=== PATIENT | female | born 1940 | race Caucasian/White ===

== ENCOUNTER 2017-03-10 15:33 | Inpatient (IN) ==
[2017-03-10] MEDS ORDERED: Ipratropium/Albuterol Neb 3 ML IH ONE ×2 (15:55→18:33)
--- NOTE | 2017-03-10 16:15 | Emergency Department Note ---
Disposition Clinical Impression: Congestive heart failure, Hypoxia, Dyspnea Disposition: Admitted As Inpatient Condition: Fair General Adult HPI - General Chief complaint: ED Shortness of Breath/Dyspnea Stated complaint: short of breathness Time Seen by Provider: 03/10/17 15:36 Source: patient, EMS Limitations: no limitations - History of Present Illness Pain Scale: 0 - Related Data Allergies Allergy/AdvReac Type Severity Reaction Status Date / Time Penicillins Allergy Anaphylaxis Verified 03/10/17 15:33 Past Medical History - Past Medical History Medical history: Reports: cancer, CHF, COPD, other Psychiatric history: Reports: no psych history - Social History Smoking Status: Former smoker Smokeless Tobacco Status: No Alcohol use: Reports: none Drug use: Reports: none Physical Exam - General Limitations: no limitations General appearance: alert, in no apparent distress Course - Reevaluation(s) Reevaluation #1: I saw the patient with the resident, Dr. Bennett. Patient presents with complaint of shortness of breath has been worsening since yesterday. She states she thinks it is water build up in her lungs. She just got out of [facility] yesterday for pneumonia. Apparently she was unable to find her CPAP machine because they just moved. She spent the night without her CPAP. Now she feels worse. On clinical exam there is coarse rhonchorous sounds in both lung wolfe. She has got edema to bilateral lower extremities. We will have to decide whether this is worsening pneumonia or if this is a newly developing congestive heart failure or some other issue. Lab workup and x-rays are pending. Disposition will be based on diagnostic results and reevaluation. Time: 16:14 Reevaluation #2: Patient's chest x-ray shows chronic changes with possibility of interstitial edema. Coupling this with orthopnea, dyspnea on exertion, and peripheral edema I suspect this really represents CHF. There is no obvious indication of pneumonia. Patient try to sit on the bedside move around and got much more short of breath. She definitely needs to be admitted to the hospital. Patient was given Lasix and another set of duo nebs. We will contact hospitalist for admission. Time: 18:36 Vital Signs Temperature 98.9 F 03/10/17 15:34 Pulse Rate 98 03/10/17 15:34 Respiratory Rate 22 03/10/17 15:34 Blood Pressure 148/57 03/10/17 15:34 O2 Sat by Pulse Oximetry 79 08/16/17 15:34 Temperature 98.0 F 03/10/17 20:44 Pulse Rate 76 03/10/17 20:44 Respiratory Rate 21 03/10/17 20:44 Blood Pressure 103/61 03/10/17 20:44 O2 Sat by Pulse Oximetry 95 03/10/17 20:44 Oxygen Delivery Oxygen Delivery Nasal Cannula Medical Decision Making - Lab Data Result diagrams: 03/10/17 16:39 03/10/17 16:39 Lab Results 03/10/17 03/10/17 03/10/17 Range/Units 16:28 16:39 16:39 WBC 9.8 (4.3-11.1) K/mcL RBC 3.97 (3.82-4.97) M/mcL Hgb 10.0 L (11.5-15.4) g/dL Hct 33.5 L (35.3-44.9) % MCV 84.4 (83.0-100.0) fL MCH 25.2 L (28.0-33.3) pg MCHC 29.9 L (31.6-35.5) g/dL RDW 17.4 H (11.5-14.5) % Plt Count 271 (140-400) K/mcL MPV 9.9 (9.4-12.4) fL Immature Gran % 0.9 (0-4) % Seg Neutrophils % 90.9 % Lymphocytes % 5.5 % Monocytes % 2.2 % Eosinophils % 0.3 % Basophils % 0.2 % Neutrophils # 8.9 (1.6-8.9) K/mcL Lymphocytes # 0.5 L (0.6-4.6) K/mcL Monocytes # 0.2 (0.0-1.3) K/mcL Eosinophils # 0.0 (0.0-0.6) K/mcL Basophils # 0.0 (0.0-0.2) K/mcL ABG pH 7.37 (7.32-7.45) pH Units ABG pCO2 59 H (35-45) mmHg ABG pO2 62 L (85-104) mmHg ABG HCO3 34.1 H (21-27) mEQ/L ABG Total CO2 35.9 H (20-26) mEq/L ABG O2 Saturation 91 L (95-98) % ABG Base Excess 7.6 H (-2.0 to 3.0) mEq/L Blood Gas Modality NC Inspired O2 28 % Sodium 138 (136-145) mEq/L Potassium 4.5 (3.5-4.5) mEq/L Chloride 98 (98-109) mEq/L Carbon Dioxide 31 H (19-29) mEq/L BUN 37 H (7-20) mg/dL Creatinine 1.15 H (0.57-1.11) mg/dL Est GFR ( Amer) 56 L (> 60) Est GFR (Non-Af Amer) 46 L (> 60) BUN/Creatinine Ratio 32 H (6-26) Glucose 263 H (70-99) mg/dL Calculated Osmolality 304 H (280-300) Calcium 9.3 (8.6-10.8) mg/dL Troponin I (0-0.03) ng/mL B-Natriuretic Peptide (0-100) pg/mL 03/10/17 03/10/17 Range/Units 16:39 16:39 WBC (4.3-11.1) K/mcL RBC (3.82-4.97) M/mcL Hgb (11.5-15.4) g/dL Hct (35.3-44.9) % MCV (83.0-100.0) fL MCH (28.0-33.3) pg MCHC (31.6-35.5) g/dL RDW (11.5-14.5) % Plt Count (140-400) K/mcL MPV (9.4-12.4) fL Immature Gran % (0-4) % Seg Neutrophils % % Lymphocytes % % Monocytes % % Eosinophils % % Basophils % % Neutrophils # (1.6-8.9) K/mcL Lymphocytes # (0.6-4.6) K/mcL Monocytes # (0.0-1.3) K/mcL Eosinophils # (0.0-0.6) K/mcL Basophils # (0.0-0.2) K/mcL ABG pH (7.32-7.45) pH Units ABG pCO2 (35-45) mmHg ABG pO2 (85-104) mmHg ABG HCO3 (21-27) mEQ/L ABG Total CO2 (20-26) mEq/L ABG O2 Saturation (95-98) % ABG Base Excess (-2.0 to 3.0) mEq/L Blood Gas Modality Inspired O2 % Sodium (136-145) mEq/L Potassium (3.5-4.5) mEq/L Chloride (98-109) mEq/L Carbon Dioxide (19-29) mEq/L BUN (7-20) mg/dL Creatinine (0.57-1.11) mg/dL Est GFR ( Amer) (> 60) Est GFR (Non-Af Amer) (> 60) BUN/Creatinine Ratio (6-26) Glucose (70-99) mg/dL Calculated Osmolality (280-300) Calcium (8.6-10.8) mg/dL Troponin I 0.02 (0-0.03) ng/mL B-Natriuretic Peptide 257 H (0-100) pg/mL Attestation Statement - Attestation Attestation: I, Dr. Sharma, examined this patient [id number] and my medical decision- making was reviewed with the Resident Physician, Dr. Bennett. I agree with the documented findings, disposition and treatment plan as described except to the extent set forth below. Please see my progress notes for details.
[2017-03-10 16:38] LABS: ABG Base Excess 7.6 mEq/L (-2.0 to 3.0); ABG HCO3 34.1 mEQ/L (21-27); ABG Oxygen Saturation 91 % (95-98); ABG PCO2 59 mmHg (35-45); ABG PH 7.37 pH Units (7.32-7.45); ABG PO2 62 mmHg (85-104); ABG TCO2 35.9 mEq/L (20-26)
[2017-03-10 16:40] LABS: Blood Gas FiO2 28 %
[2017-03-10 16:57] LABS: Basophils % 0.2 %; Eosinophils % 0.3 %; Hematocrit 33.5 % (35.3-44.9); Immature Granulocytes % 0.9 % (0-4); Lymphocytes # 0.5 K/mcL (0.6-4.6); Lymphocytes % 5.5 %; Mean Corpuscular HGB Conc 29.9 g/dL (31.6-35.5); Mean Corpuscular Hemoglobin 25.2 pg (28.0-33.3); Mean Corpuscular Volume 84.4 fL (83.0-100.0); Mean Platelet Volume 9.9 fL (9.4-12.4); Monocytes # 0.2 K/mcL (0.0-1.3); Monocytes % 2.2 %; Neutrophils # 8.9 K/mcL (1.6-8.9); Platelet Count 271 K/mcL (140-400); Red Blood Count 3.97 M/mcL (3.82-4.97); Red Cell Distribution Width 17.4 % (11.5-14.5); Segmented Neutrophils % 90.9 %
--- NOTE | 2017-03-10 16:59 | Emergency Department Note ---
Disposition Clinical Impression: Hypoxia Congestive heart failure Qualifiers: Congestive heart failure type: unspecified congestive heart failure type Congestive heart failure chronicity: unspecified congestive heart failure chronicity Qualified Code(s): I50.9 - Heart failure, unspecified Dyspnea Qualifiers: Dyspnea type: unspecified Qualified Code(s): R06.00 - Dyspnea, unspecified Disposition: Admitted As Inpatient Condition: Fair Time of Disposition: 19:59 SOB HPI - General Chief Complaint: ED Shortness of Breath/Dyspnea Stated Complaint: short of breathness Time Seen by Provider: 03/10/17 15:36 Source: patient, EMS Mode of arrival: EMS Limitations: no limitations Nursing Notes Reviewed: Yes Vital Signs Reviewed: Yes - History of Present Illness 76-year-old female history of COPD on 3 L home oxygen supplementation, congestive heart failure, [id number] diabetes mellitus presents with shortness of breath. Reports she was recently discharged from [facility] for pneumonia placed on Bactrim. She typically wears a CPAP at home but due to her recent move she was unable to find it and did not use it last night. She reports continued productive cough as well as difficulty breathing. She had to increase her oxygen to 4 L. Denies any fever, chest pain, nausea or vomiting or abdominal pain. She does have a known hernia, it is not causing her pain at this time. She comes for evaluation as she was instructed at discharged to come back if symptoms worsen. On initial presentation patient is hypoxic 79% on room air, and came up to 94% on 5L. She is afebrile and has some conversational dyspnea phrase at a time. Unsure of baseline. Will get a chest x-ray, basic labs EKG and a breathing treatment. Pt Subjective Complaint: shortness of breath - Related Data Allergies Allergy/AdvReac Type Severity Reaction Status Date / Time Penicillins Allergy Anaphylaxis Verified 03/10/17 15:33 All systems ED: reviewed and negative except as stated. Review of Systems: As Per HPI Constitutional: Denies: fever, chills Cardiovascular: Reports: dyspnea on exertion. Denies: chest pain Respiratory: Reports: cough, dyspnea Gastrointestinal: Denies: abdominal pain, nausea, vomiting Genitourinary: Denies: urgency, dysuria Musculoskeletal: Denies: back pain, neck pain Integumentary: Denies: rash, abrasion Neurological: Denies: headache Past Medical History - Past Medical History Attestation: Yes The following information was validated with the patient. Source: patient Medical history: Reports: cancer, CHF, COPD, other Psychiatric history: Reports: no psych history - Social History Smoking Status: Former smoker Smokeless Tobacco Status: No Alcohol use: Reports: none Drug use: Reports: none Physical Exam - General Limitations: no limitations General appearance: alert, in no apparent distress, obese - Head Head exam: atraumatic, normocephalic, normal inspection - Eye Eye exam: Present: normal appearance, PERRL, EOMI - ENT ENT exam: normal exam, normal oropharynx, mucous membranes moist - Neck Neck exam: Present: normal inspection, full ROM, trachea midline - Chest Chest inspection: Present: normal inspection, symmetric chest wall rise, other ( barrel chest) - Respiratory Respiratory exam: Present: other (coarse breath sounds bilaterally). Absent: respiratory distress - Expanded Respiratory Exam Location: rhonchi: Left - Cardiovascular Cardiovascular exam: Present: regular rate, normal rhythm, normal heart sounds - Abdominal Exam Abdominal exam: Present: soft, Non-Tender, normal bowel sounds, hernia. Absent : tenderness, distention, guarding, rebound, rigidity - Extremities Exam Extremities exam: Present: normal inspection, full ROM, normal capillary refill , pedal edema (pitting +2 symmetrical). Absent: tenderness, calf tenderness - Neurological Exam Neurological exam: Present: alert, oriented X3 - Skin Skin exam: Present: warm, dry, intact, normal color Course - Reevaluation(s) Reevaluation #1: On physical exam she has course breath sounds bilaterally. She appears to be fluid overloaded with pedal edema +2. After breathing treatment lungs continue to be course bilaterally. States she feels better however her pulse ox remains in the lower 90s. She is becoming very sleepy. And ABG was performed shows oxygen saturation 79 and elevated carbon dioxide level. Review of her chest x- ray does not show any consolidation but there is some interstitial edema to suggest congestive heart failure. BNP is elevated to 57. Troponin is negative. EKG does not show any acute ischemic changes. She has a mild elevation in her creatinine 1.15, no old labs to compare. She does not have a leukocytosis. Her labs or otherwise unremarkable. Due to her hypoxia in current mental state I believe she would benefit admission. At this time I think her symptoms are more due to congestive heart failure and not pneumonia. We attempted to stand are often walk however she was very weak and became very hypoxic. Patient will be admitted for further care management. She is in agreement with this plan. Impression is dyspnea and hypoxia, secondary to CHF. Chest X-Ray 03/10/17 15:43 IMPRESSION: 1. Reticular opacities throughout the lungs are favored to represent chronic lung changes superimposed on COPD; however, no prior studies are available to assess chronicity. Differential considerations include mild interstitial edema or atypical infection. 2. No focal consolidation or pleural effusion. D/ / 03/10/2017 16:24:01 Marcia Cole MD / audrey Interpreting Provider: Marcia Cole MD Time: 20:00 - Consultations Consultation #1: Spoke with on-call hospitalist glenny Hayes to admit for CHF and hypoxia. No further orders at this time Time: 19:59 Vital Signs Temperature 98.9 F 03/10/17 15:34 Pulse Rate 98 03/10/17 15:34 Respiratory Rate 22 03/10/17 15:34 Blood Pressure 148/57 03/10/17 15:34 O2 Sat by Pulse Oximetry 79 03/10/17 15:34 Temperature 98.9 F 03/10/17 15:34 Pulse Rate 88 03/10/17 18:30 Respiratory Rate 18 03/10/17 19:54 Blood Pressure 158/66 03/10/17 19:54 O2 Sat by Pulse Oximetry 91 03/10/17 18:49 Oxygen Delivery Oxygen Delivery Nasal Cannula Shortness of Breath/Dyspnea - Medical Records Medical records reviewed: Yes I reviewed the patient's medical records. - Lab Data Lab results reviewed: Yes I reviewed the patient's lab results. Result diagrams: 03/10/17 16:39 03/10/17 16:39 Lab Results 03/10/17 03/10/17 03/10/17 Range/Units 16:28 16:39 16:39 WBC 9.8 (4.3-11.1) K/mcL RBC 3.97 (3.82-4.97) M/mcL Hgb 10.0 L (11.5-15.4) g/dL Hct 33.5 L (35.3-44.9) % MCV 84.4 (83.0-100.0) fL MCH 25.2 L (28.0-33.3) pg MCHC 29.9 L (31.6-35.5) g/dL RDW 17.4 H (11.5-14.5) % Plt Count 271 (140-400) K/mcL MPV 9.9 (9.4-12.4) fL Immature Gran % 0.9 (0-4) % Seg Neutrophils % 90.9 % Lymphocytes % 5.5 % Monocytes % 2.2 % Eosinophils % 0.3 % Basophils % 0.2 % Neutrophils # 8.9 (1.6-8.9) K/mcL Lymphocytes # 0.5 L (0.6-4.6) K/mcL Monocytes # 0.2 (0.0-1.3) K/mcL Eosinophils # 0.0 (0.0-0.6) K/mcL Basophils # 0.0 (0.0-0.2) K/mcL ABG pH 7.37 (7.32-7.45) pH Units ABG pCO2 59 H (35-45) mmHg ABG pO2 62 L (85-104) mmHg ABG HCO3 34.1 H (21-27) mEQ/L ABG Total CO2 35.9 H (20-26) mEq/L ABG O2 Saturation 91 L (95-98) % ABG Base Excess 7.6 H (-2.0 to 3.0) mEq/L Blood Gas Modality NC Inspired O2 28 % Sodium 138 (136-145) mEq/L Potassium 4.5 (3.5-4.5) mEq/L Chloride 98 (98-109) mEq/L Carbon Dioxide 31 H (19-29) mEq/L BUN 37 H (7-20) mg/dL Creatinine 1.15 H (0.57-1.11) mg/dL Est GFR ( Amer) 56 L (> 60) Est GFR (Non-Af Amer) 46 L (> 60) BUN/Creatinine Ratio 32 H (6-26) Glucose 263 H (70-99) mg/dL Calculated Osmolality 304 H (280-300) Calcium 9.3 (8.6-10.8) mg/dL Troponin I (0-0.03) ng/mL B-Natriuretic Peptide (0-100) pg/mL 03/10/17 03/10/17 Range/Units 16:39 16:39 WBC (4.3-11.1) K/mcL RBC (3.82-4.97) M/mcL Hgb (11.5-15.4) g/dL Hct (35.3-44.9) % MCV (83.0-100.0) fL MCH (28.0-33.3) pg MCHC (31.6-35.5) g/dL RDW (11.5-14.5) % Plt Count (140-400) K/mcL MPV (9.4-12.4) fL Immature Gran % (0-4) % Seg Neutrophils % % Lymphocytes % % Monocytes % % Eosinophils % % Basophils % % Neutrophils # (1.6-8.9) K/mcL Lymphocytes # (0.6-4.6) K/mcL Monocytes # (0.0-1.3) K/mcL Eosinophils # (0.0-0.6) K/mcL Basophils # (0.0-0.2) K/mcL ABG pH (7.32-7.45) pH Units ABG pCO2 (35-45) mmHg ABG pO2 (85-104) mmHg ABG HCO3 (21-27) mEQ/L ABG Total CO2 (20-26) mEq/L ABG O2 Saturation (95-98) % ABG Base Excess (-2.0 to 3.0) mEq/L Blood Gas Modality Inspired O2 % Sodium (136-145) mEq/L Potassium (3.5-4.5) mEq/L Chloride (98-109) mEq/L Carbon Dioxide (19-29) mEq/L BUN (7-20) mg/dL Creatinine (0.57-1.11) mg/dL Est GFR ( Amer) (> 60) Est GFR (Non-Af Amer) (> 60) BUN/Creatinine Ratio (6-26) Glucose (70-99) mg/dL Calculated Osmolality (280-300) Calcium (8.6-10.8) mg/dL Troponin I 0.02 (0-0.03) ng/mL B-Natriuretic Peptide 257 H (0-100) pg/mL - Radiology Data Radiology results reviewed: Yes I reviewed the patient's radiology results. Chest X-Ray 03/10/17 15:43 IMPRESSION: 1. Reticular opacities throughout the lungs are favored to represent chronic lung changes superimposed on COPD; however, no prior studies are available to assess chronicity. Differential considerations include mild interstitial edema or atypical infection. 2. No focal consolidation or pleural effusion. D/ / 03/10/2017 16:24:01 Marcia Cole MD / audrey Interpreting Provider: Marcia Cole MD - EKG Data EKG attestation: Yes I reviewed and interpreted this EKG. EKG results narrative: EKG performed 1546 normal sinus rhythm 94 bpm, normal axis, no ST elevations or depression, intervals are within normal limits. No old EKG for comparison. No acute ischemic changes.
[2017-03-10 17:11] LABS: Calcium 9.3 mg/dL (8.6-10.8); Potassium 4.5 mEq/L (3.5-4.5)
[2017-03-10] MEDS ORDERED: Furosemide 40 MG/4 ML VIAL IVP ONE (18:34)
[2017-03-10] MEDS ORDERED: Naloxone 0.4 MG/ML INJ IVP PRN (21:12)
[2017-03-10] MEDS ORDERED: *HR* HYDROcodone/Acet 5/325 mg TABLET PO PRN (21:12)
[2017-03-10] MEDS ORDERED: Dextrose Gel 15 GM PO PRN ×2 (21:14)
[2017-03-10] MEDS ORDERED: D5% in Water 1,000 ML IVC PRN (21:14)
[2017-03-10] MEDS ORDERED: *HR* Dextrose 50 % in Water (Syg) 50 ML SYRINGE IVP PRN (21:14)
[2017-03-10] MEDS ORDERED: Insulin DETEMIR 100 UNIT/ML X5UNITS SQ SCH (21:45)
--- NOTE | 2017-03-10 22:02 | Internal Med History&Physical ---
<KoffiThong - Last Filed: 03/11/17 02:03> Date of Encounter: 03/10/17 Assessment and Plan (1) MOO on CPAP Current visit: Yes Status: Chronic pt has not had her CPAP and she feels that this is contributing to her current state, will get respiratory to place her on one at night, will also get oncology social work to weigh in regarding getting her set up at home Internal Medicine - H&P: HPI History of present illness: Ms. Guillen is a 76 year old female Internal Medicine - H&P: Meds Albuterol Sulfate [Albuterol Inhaler] 2 puff IH Q6H PRN 03/11/17 [History] Aspirin [Lo-Dose Aspirin EC] 81 mg PO DAILY 03/11/17 [History] Atorvastatin [Lipitor] 10 mg PO HS 03/11/17 [History] Esomeprazole Magnesium [Nexium] 40 mg PO DAILY 03/11/17 [History] FLUoxetine HCl [Fluoxetine HCl] 10 mg PO DAILY 03/11/17 [History] Furosemide [Lasix] 20 mg PO BID 03/11/17 [History] Lisinopril [Zestril] 5 mg PO DAILY 03/11/17 [History] Magnesium Oxide [Magnesium] 400 mg PO DAILY 03/11/17 [History] Oxybutynin [Ditropan] 5 mg PO DAILY 03/11/17 [History] Potassium Chloride [K-Tab ER] 10 meq PO DAILY 03/11/17 [History] metFORMIN [Glucophage] 850 mg PO BIDWM 03/11/17 [History] Penicillins Allergy (Verified 03/10/17 15:33) Anaphylaxis All Systems PM: A 10-system review of systems was performed and is negative for pertinent findings except as documented above in the HPI. - Constitutional Vitals: Temp Pulse Resp BP Pulse Ox 97.8 F 93 18 105/60 95 03/10/17 23:24 03/10/17 23:24 03/10/17 23:24 03/10/17 23:24 03/10/17 23:24 Limited exam Adult female, obese looking, face looks swollen, she is breathless, thick short neck that is difficult to visualize, lying in bed, Resp: diminished breath sounds, no crackles or wheeze heard, Extremities, bilateral reddened distal legs, with signs of grooving Internal Med - H&P Results - Labs CBC & Chem 7: 03/10/17 16:39 03/10/17 16:39 Labs: Urine 03/11/17 Range/Units 00:00 Urine Color Yellow (Yellow) Urine Clarity Clear (Clear) Urine pH 6.0 (5.0-8.0) pH Units Ur Specific Bronson 1.012 (1.010-1.025) Urine Protein Negative (Neg-Trace) mg/dL Urine Glucose (UA) Normal (Normal) mg/dL - Diagnostic Studies Chest x-ray Status: image reviewed by me - Attending Attestation I personally interviewed and examined this patient and my medical decision- making was reviewed with the Advanced Practice Nurse. I agree with the documented findings, disposition and treatment plan as described except as follows. Patient with a hx of MOO came in because she was acutely dyspneic, do not believe that she has CHF decompensation. She most likely has acute worsening of symptoms in the setting of her baseline COPD on top of recent pneumonia that is slowly resolving. Her inability to get/use her CPAP last night may have contributed to her current state. Thong Rain MD, MPH Hospitalist <Thomas Espinoza - Last Filed: 03/11/17 10:00> Date of Encounter: 03/11/17 Time of Encounter: 20:30 Assessment and Plan (1) Pneumonia Current visit: Yes Status: Acute Patient presents with pneumonia that she states was diagnosed at [facility] on 03/05-. She was instructed to return to the ED if she felt worse and she states that she experienced worsening SOB and weakness over the past 24 hours due to unresolved pneumonia. Patient was instructed to begin PO Bactrim post-discharge but did not start medication yet. Sputum, urine legionella and strep pneumoniae, and urine reflect and micro cultures ordered. Will begin IV ceftriaxone 2,000 mg daily and PO azithromycin 500 mg daily for infection coverage. DuoNebs Q4 ordered. Supplemental O2 with continuous SpO2 monitoring ordered. Patient does not currently meet SIRS criteria but will be monitored closely for signs of increasing infection and/or respiratory distress. Qualifiers: Pneumonia type: due to unspecified organism Laterality: bilateral Lung location: unspecified part of lung Qualified Code(s): J18.9 - Pneumonia, unspecified organism (2) Acute exacerbation of CHF (congestive heart failure) Current visit: Yes Status: Acute Patient presents with acute exacerbation of CHF versus unresolved pneumonia. Patient states that she takes PO lasix but is unsure of dosing at this time. Patient's medications to be confirmed with her home pharmacy in the a.m. Supplemental O2/SpO2 monitoring and CPAP HS. Will monitor I&O and daily weight. 1.5L daily fluid restriction. Qualifiers: Congestive heart failure type: unspecified congestive heart failure type Qualified Code(s): I50.9 - Heart failure, unspecified (3) Dyspnea Current visit: Yes Status: Acute Patient presents with acute shortness of breath/dyspnea on admission from hypoxia related to her reported unresolved pneumonia versus acute exacerbation of CHF. Patient reports using home O2 at 3L daily and CPAP at night, however she states she was unable to use CPAP last night due to it being misplaced. Supplemental O2 with SpO2 monitoring ordered during the day with CPAP ordered HS with respiratory to titrate. DuoNebs ordered Q4 scheduled. Repeat ABGs in the a.m. Will monitor patient and vital signs. Qualifiers: Dyspnea type: shortness of breath Qualified Code(s): R06.02 - Shortness of breath; R06.00 - Dyspnea, unspecified; R06.01 - Orthopnea (4) Weakness Current visit: Yes Status: Acute Patient presents with acute weakness which she states has worsened since being discharged from [facility] in 03/09. She attributes her weakness to her pneumonia being unresolved. Patient placed as falls precautions/up with assist/ bed rest with bathroom privileges with assist only. (5) Diabetes Current visit: Yes Status: Chronic Patient reports history of chronic diabetes with previous insulin but is unclear on current medications. She believes she takes metformin daily. Will verify with her pharmacy in the a.m. Blood glucose monitoring ordered ACHS. Basal dosing of 14 units SQ of Levemir ordered HS with low-dose correction insulin sliding scale and hypoglycemic protocol ordered. A1c ordered for a.m. labs. Qualifiers: Diabetes mellitus type: type 2 Diabetes mellitus complication status: with unspecified complications Diabetes mellitus emt intermediate insulin use: unspecified retirement insulin use status Qualified Code(s): E11.8 - Type 2 diabetes mellitus with unspecified complications (6) DVT prophylaxis Current visit: Yes Status: Acute Patient to be placed on DVT prophylaxis due to current admission protocol and bed rest status. Heparin 5,000 units SQ Q12 ordered. Internal Medicine - H&P: HPI Chief complaint: Shortness of breath/Dyspnea Admitted From: Emergency Dept Plans for Post Hospital Care: Home History of present illness: Mrs. Guillen is a 76 year old female presents from the ED with chief complaint of shortness of breath and dyspnea which has worsened over the past 24 hours. Patient states that she was recently hospitalized at [facility] for pneumonia from - and was sent home on PO Bactrim. Patient reports that she picked up her medication today but had not taken any when she began to feel worse and come to the ED. She states that she feels that her pneumonia is unresolved and that she is currently coughing up green sputum. She also states that she has CHF and uses CPAP at home but it was misplaced and she was unable to use it in last night. Mrs. Guillen reports that she uses home O2 at 3L normally. Upon admission to the ED, patient was hypoxic with SpO2 of 79% on room air which improved to 95 % once she was placed on 5L via nasal cannula. 1-View CXR today shows reticular opacities throughout the lungs that favor chronic lung changes superimposed on COPD. However, no previous studies are available to compare imaging to or assess chronicity. Differential considerations include mild interstitial edema or atypical infection. No focal consolidation or pleural effusion present. Patient's medical history includes lung cancer which she states is resolved, CHF , COPD, and diabetes which she previously took insulin for. She states she checks her blood glucose 3-4x daily. Patient is also a former smoker of 1-1.5 PPD, reporting she quit 4-5 months ago. Mrs. Guillen is at moderate risk for respiratory decline based on current symptoms and will be placed as observation status with orders for IV ceftriaxone 2,000 mg daily and PO azithromycin 500 mg daily for infection coverage. Patient was hypoxic on admission and will be placed on O2 via nasal cannula during the day and CPAP HS with respiratory to titrate. We will continue patient's home medications once they are confirmed with her pharmacy. Basal and low-dose correction insulin sliding scale, hypoglycemic protocol, and blood glucose monitoring ACHS ordered. Repeat ABGs in the a.m. Sputum, urine legionella and strep pneumoniae, and urine reflex with micro cultures ordered as well. Patient does not currently meet SIRS criteria but will be monitored closely for signs of increasing infection. Time spent with patient >40 minutes. Past Med Surg Social Fam HX - Past Medical History Source: patient Medical history: cancer (Lung - resolved), CHF, COPD, other Psychiatric history: no psych history - Past Surgical History Surgical History: hysterectomy - Social History Smoking Status: Former smoker Packs per day: 1-1.5 PPD - reports quitting 4-5 months ago Smokeless Tobacco Status: No Alcohol use: none Drug use: none Current living situation: Home, With Family Activity Level: Independent ambulation, Uses cane/walker Recent Out of Country Travel Within the Last 8 Weeks: No Exposure or Possible Exposure to Illness During Travel: No - Family History Mother Race: Family Member Ethnicity: Non- Living Status: Age at : 73 Cause of : Stroke Hx Family Cardiac Disorders: Yes (HTN) Hx Family Endocrine Disorder: Yes (DM) Father Race: Family Member Ethnicity: Non- Living Status: Age at : 73 Cause of : Cancer Hx Family Cancer: Yes (Unknown) Sister Race: Family Member Ethnicity: Non- Living Status: Age at : 60 Cause of : Lung cancer Hx Family Cancer: Yes (Lung) All Systems PM: A 10-system review of systems was performed and is negative for pertinent findings except as documented above in the HPI. - Constitutional Constitutional: as per HPI, weakness, no chills, no fever(s), no night sweats - EENT Eyes: no change in vision, no discharge, no pain, no photophobia Ears: no ear discharge, no ear pain, no tinnitus Nose, mouth and throat: no dysphagia, no nasal discharge, no neck pain, no sore throat - Breasts Breasts: as per HPI - Cardiovascular Cardiovascular ROS IM: as per HPI, dyspnea, dyspnea on exertion, edema (Mild pitting edema of bilateral LEs), no chest pain, no diaphoresis, no lightheadedness, no palpitations, no syncope - Respiratory Respiratory: as per HPI, cough, dyspnea, dyspnea on exertion, wheezing, change in phlegm color - Gastrointestinal Gastrointestinal: no abdominal pain, no diarrhea, no hematemesis, no hematochezia, no melena, no nausea, no vomiting - Genitourinary Genitourinary: no change in urinary stream, no dysuria, no flank pain, no hematuria Menstruation: as per HPI - Musculoskeletal Musculoskeletal ROS IM: no numbness, no tingling - Integumentary Integumentary IM: erythema (Mild erythema of LEs bilaterally), no rash, no unusual bruising - Neurological Neurological ROS: no confusion, no convulsions, no focal weakness, no numbness, no tingling, no tremor(s) - Psychiatric Psychiatric: as per HPI - Endocrine Endocrine IM: as per HPI - Hematologic/Lymphatic Hematologic/Lymphatic: no easy bruising - Allergic/Immunologic Allergic/Immunologic: as per HPI - Constitutional Vitals: Temp Pulse Resp BP Pulse Ox 98.0 F 76 21 103/61 95 03/10/17 20:44 03/10/17 20:44 03/10/17 20:44 03/10/17 20:44 03/10/17 20:44 General appearance: Present: cooperative, mild distress (Respiratory), A&O X 3, pleasant, obese, answers questions appropriately - Head Head exam: Present: atraumatic, normocephalic - Eye Eye exam: Present: PERRL, conjuntiva pink, sclera anicteric Pupils: Present: PERRL - ENT ENT exam: Present: normal exam, normal external ear exam - Neck Neck exam general surgery: Present: normal inspection, supple, trachea midline. Absent: lymphadenopathy - Respiratory Respiratory exam: Present: accessory muscle use, decreased breath sounds, wheezes - Cardiovascular Cardiovascular exam: Present: RRR, +S1, +S2. Absent: diastolic murmur, gallop, rubs, systolic murmur - GI/Abdominal GI/Abdominal exam: Present: normal bowel sounds, soft, no peritoneal signs. Absent: distended, tenderness - Rectal Rectal exam: Present: deferred - Additional comments: exam deferred. - Extremities Exam Extremities exam: Present: pedal edema, warm, radial pulses palpable and symmetrical - Back Exam Back exam: Present: normal inspection - Neurological Exam Neurological exam: Present: CN II-XII intact, oriented X3, no focal deficits. Absent: pronater drift, facial droop, speech deficit - Psychiatric Psychiatric exam: Present: normal affect, normal mood - Skin Skin exam: Present: dry, intact Internal Med - H&P Results - Labs CBC & Chem 7: 03/11/17 05:53 03/11/17 05:53 - Diagnostic Studies Chest x-ray Additional comments: Impressions Chest X-Ray 03/10/17 15:43 IMPRESSION: 1. Reticular opacities throughout the lungs are favored to represent chronic lung changes superimposed on COPD; however, no prior studies are available to assess chronicity. Differential considerations include mild interstitial edema or atypical infection. 2. No focal consolidation or pleural effusion. D/ / 03/10/2017 16:24:01 Marcia Cole MD / audrey Interpreting Provider: Marcia Cole MD
[2017-03-10] MEDS: Insulin LISPRO 300 UNITS/3 ML VIAL SQ SCH ×2 (22:23→22:37)
[2017-03-10] MEDS: Azithromycin 250 MG TABLET PO SCH (22:37)
[2017-03-10] MEDS: Ipratropium/Albuterol Neb 3 ML IH SCH (23:37)
[2017-03-11 00:15] LABS: Bilirubin,Urine Negative (Negative); Blood,Urine Negative (Negative); Clarity,Urine Clear (Clear); Color,Urine Yellow (Yellow); Glucose,Urine (UA) Normal (Normal); Ketones,Urine Negative (Negative); Leukocyte Esterase,Urine Negative (Negative); Nitrite,Urine Negative (Negative); Protein,Urine Negative (Neg-Trace); Specific Gravity,Urine 1.012 (1.010-1.025); Urobilinogen,Urine Normal (Normal)
[2017-03-11] MEDS: Ipratropium/Albuterol Neb 3 ML IH SCH ×6 (03:45→22:30)
[2017-03-11 03:52] LABS: ABG Base Excess 13.2 mEq/L (-2.0 to 3.0); ABG HCO3 39.2 mEQ/L (21-27); ABG Oxygen Saturation 94 % (95-98); ABG PCO2 59 mmHg (35-45); ABG PH 7.43 pH Units (7.32-7.45); ABG PO2 69 mmHg (85-104)
[2017-03-11 03:53] LABS: Blood Gas FiO2 40 %
[2017-03-11] MEDS: Acetaminophen 325 MG TABLET PO PRN (04:24)
[2017-03-11] MEDS: *HR* Heparin 5,000 UNIT/ML VIAL SQ SCH ×2 (05:26→16:22)
[2017-03-11 06:07] LABS: Basophils % 0.2 %; Eosinophils # 0.1 K/mcL (0.0-0.6); Eosinophils % 0.8 %; Immature Granulocytes % 0.8 % (0-4); Lymphocytes # 2.1 K/mcL (0.6-4.6); Lymphocytes % 22.4 %; Mean Corpuscular HGB Conc 30.4 g/dL (31.6-35.5); Mean Corpuscular Hemoglobin 25.4 pg (28.0-33.3); Mean Corpuscular Volume 83.6 fL (83.0-100.0); Mean Platelet Volume 10.5 fL (9.4-12.4); Monocytes # 0.8 K/mcL (0.0-1.3); Monocytes % 8.1 %; Neutrophils # 6.4 K/mcL (1.6-8.9); Platelet Count 237 K/mcL (140-400); Red Blood Count 3.23 M/mcL (3.82-4.97); Red Cell Distribution Width 17.4 % (11.5-14.5); Segmented Neutrophils % 67.7 %
[2017-03-11 06:08] LABS: Hemoglobin 8.2 g/dL (11.5-15.4)
[2017-03-11 06:13] LABS: INR 1.1; Prothrombin Time 11.8 Seconds (9.4-12.1)
[2017-03-11 06:16] LABS: Activated Partial Thrombo Time 25.4 Seconds (26.0-36.0)
[2017-03-11 06:17] LABS: Hemoglobin A1C 7.1 %
[2017-03-11 06:21] LABS: BUN/Creatinine Ratio 37 (6-26); Blood Urea Nitrogen 31 mg/dL (7-20); Calcium 8.7 mg/dL (8.6-10.8); Carbon Dioxide 35 mEq/L (19-29); Chloride 97 mEq/L (98-109); Chol/HDL Ratio 2.6 (0-4.9); Cholesterol 137 mg/dL (< 200); Glucose 109 mg/dL (70-99); HDL Cholesterol 53 mg/dL (40-59); LDL Cholesterol,Calculated 70 mg/dL (0-99); Magnesium 1.6 mg/dL (1.6-2.6); Osmolality,Calculated 295 (280-300); Potassium 3.5 mEq/L (3.5-4.5); Sodium 139 mEq/L (136-145); Triglycerides 69 mg/dL (< 150); eGFR For African Americans > 60 (> 60); eGFR For Non-African Americans > 60 (> 60)
[2017-03-11] MEDS: Insulin LISPRO 300 UNITS/3 ML VIAL SQ SCH ×4 (07:31→21:37)
[2017-03-11] MEDS: Azithromycin 250 MG TABLET PO SCH (07:50)
--- NOTE | 2017-03-11 10:25 | Internal Med Progress Note ---
<Norm San P - Last Filed: 03/11/17 18:12> Date of Encounter: 03/11/17 - Constitutional Vitals: Temp Pulse Resp BP Pulse Ox 98.1 F 80 20 127/68 92 03/11/17 15:40 03/11/17 15:40 03/11/17 15:40 03/11/17 15:40 03/11/17 15:40 Internal Medicine: Result - Labs CBC & Chem 7: 03/11/17 16:31 03/11/17 05:53 Labs: Short CBC 03/11/17 03/11/17 Range/Units 05:53 16:31 WBC 9.5 10.5 (4.3-11.1) K/mcL Hgb 8.2 L D 9.0 L (11.5-15.4) g/dL Hct 27.0 L 30.0 L (35.3-44.9) % Plt Count 237 279 (140-400) K/mcL Neutrophils # 6.4 7.0 (1.6-8.9) K/mcL BMP 03/11/17 05:53 Sodium 139 Potassium 3.5 D Chloride 97 L Carbon Dioxide 35 H BUN 31 H Creatinine 0.83 Glucose 109 H Calcium 8.7 Urine 03/11/17 Range/Units 00:00 Urine Color Yellow (Yellow) Urine Clarity Clear (Clear) Urine pH 6.0 (5.0-8.0) pH Units Ur Specific Aspen 1.012 (1.010-1.025) Urine Protein Negative (Neg-Trace) mg/dL Urine Glucose (UA) Normal (Normal) mg/dL - ABG Interpretation ABG results: ABG ABG pH 7.43 pH Units (7.32-7.45) 03/11/17 03:42 ABG pCO2 59 mmHg (35-45) H 03/11/17 03:42 ABG pO2 69 mmHg (85-104) L 03/11/17 03:42 ABG O2 Saturation 94 % (95-98) L 03/11/17 03:42 PT/INR, D-dimer PT 11.8 Seconds (9.4-12.1) 03/11/17 05:53 Consult Discharge Plan - Plan Referrals: [facility] [Outside] (web request sent on 03/11/17) - Attending Attestation I examined this patient and my medical decision-making was reviewed with the Resident Physician. I agree with the documented findings, disposition and treatment plan as described except to the extent set forth below. 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 CXR showed reticular opacities throughout the lungs, possible mild interstitial edema or atypical infection, no obvious focal consolidation. legionella, strep pneumo antigen negative Plan: azithromycin and ceftriaxone day 2 scheduled DuoNebs IV steroids continue CPAP continue home dose of lasix. (2) Anemia Current Visit: Yes Status: Acute Assessment and plan: note drop in Hg from admission from 10 to 8.2 Plan: stool guiac pending will repeat CBC this evening will get iron panel and ferritin in the morning. Qualifiers: Anemia type: unspecified type Qualified Code(s): D64.9 - Anemia, unspecified (3) Pneumonia Current Visit: Yes Status: Acute Assessment and plan: plan as above. Qualifiers: Pneumonia type: due to unspecified organism Laterality: bilateral Lung location: unspecified part of lung Qualified Code(s): J18.9 - Pneumonia, unspecified organism (4) Dyspnea Current Visit: Yes Status: Acute Assessment and plan: plan as #1 above. Qualifiers: Dyspnea type: shortness of breath Qualified Code(s): R06.02 - Shortness of breath; R06.00 - Dyspnea, unspecified; R06.01 - Orthopnea (5) Congestive heart failure Current Visit: Yes Status: Acute Assessment and plan: repeat echo showed LVEF 65%, mild concentric LVH, moderate LV diastolic dysfunction, normal RV size and fucntion, mildly dilated left atrium, mildly dilated right atrium, moderate mitral annular calcification, mild to moderate mitral stenosis, severe pulmonary HTN, RVSP 66. pulm HTN likely main contributing to her dyspnea. Qualifiers: Congestive heart failure type: diastolic Congestive heart failure chronicity: unspecified congestive heart failure chronicity Qualified Code(s) : I50.30 - Unspecified diastolic (congestive) heart failure (6) Weakness Current Visit: Yes Status: Acute Assessment and plan: consult to PT/OT (7) Diabetes Current Visit: Yes Status: Chronic Assessment and plan: hold metformin. low dose SSI with ACHS accuchecks. Qualifiers: Diabetes mellitus type: type 2 Diabetes mellitus complication status: with unspecified complications Diabetes mellitus group home insulin use: unspecified superintendent terminal insulin use status Qualified Code(s): E11.8 - Type 2 diabetes mellitus with unspecified complications (8) DVT prophylaxis Current Visit: Yes Status: Acute Assessment and plan: Heparin SQ - Subjective Interval history: 76 year old female evaluated at bedside. patient denies nauesa, vomiting, diarrhea, fever, chills, chest pain. she admits to some shortness of beath. she states she wears CPAP at home, but lost it during a move. - Constitutional Vitals: Temp Pulse Resp BP Pulse Ox 97.8 F 77 16 127/65 90 03/11/17 07:24 03/11/17 07:24 03/11/17 07:38 03/11/17 07:24 03/11/17 07:53 General appearance: Present: cooperative, mild distress (Respiratory), A&O X 3, pleasant, obese, answers questions appropriately - Head Head exam: Present: atraumatic, normocephalic - Neck Neck exam general surgery: Present: supple, trachea midline - Respiratory Additional comments: diffuse wheezing, rales - Cardiovascular Cardiovascular exam: Present: RRR, +S1, +S2 - GI/Abdominal Additional comments: [id number] hernia present to the right of the umbillicus. - Extremities Exam Extremities exam: Absent: cyanotic, pedal edema Additional comments: bilateral lower extremity redness and warmth. - Neurological Exam Neurological exam: Present: alert, oriented X3, no focal deficits - Psychiatric Psychiatric exam: Present: normal affect, normal mood - Skin Skin exam: Present: intact Internal Medicine: Result - Labs CBC & Chem 7: 03/12/17 05:19 03/12/17 05:19 Labs: Short CBC 03/11/17 Range/Units 05:53 WBC 9.5 (4.3-11.1) K/mcL Hgb 8.2 L D (11.5-15.4) g/dL Hct 27.0 L (35.3-44.9) % Plt Count 237 (140-400) K/mcL Neutrophils # 6.4 (1.6-8.9) K/mcL BMP 03/11/17 05:53 Sodium 139 Potassium 3.5 D Chloride 97 L Carbon Dioxide 35 H BUN 31 H Creatinine 0.83 Glucose 109 H Calcium 8.7 Urine 03/11/17 Range/Units 00:00 Urine Color Yellow (Yellow) Urine Clarity Clear (Clear) Urine pH 6.0 (5.0-8.0) pH Units Ur Specific Aspen 1.012 (1.010-1.025) Urine Protein Negative (Neg-Trace) mg/dL Urine Glucose (UA) Normal (Normal) mg/dL - ABG Interpretation ABG results: ABG ABG pH 7.43 pH Units (7.32-7.45) 03/11/17 03:42 ABG pCO2 59 mmHg (35-45) H 03/11/17 03:42 ABG pO2 69 mmHg (85-104) L 03/11/17 03:42 ABG O2 Saturation 94 % (95-98) L 03/11/17 03:42 PT/INR, D-dimer PT 11.8 Seconds (9.4-12.1) 03/11/17 05:53
--- NOTE | 2017-03-11 15:22 | Electrocardiograph Report ---
[place] [id number] Test Date: 2017-03-10 Pat Name: Rachel Guillen Department: 104 Room: 2A23 Gender: F Piecer Up: KIMBERLEY : 1940 Requested By: Allen Bennett Order Number: [id number] Reading MD: Morales Milton MD Measurements Intervals [place] Rate: 94 P: 25 IN: 139 QRS: 13 QRSD: 76 T: 46 QT: 363 QTc: 415 Interpretive Statements SINUS RHYTHM Electronically Signed On 03-11-2017 15:20:40 EDT by Morales Milton MD
[2017-03-11] MEDS: Furosemide 20 MG TABLET PO SCH (16:21)
[2017-03-11] MEDS: MethylPREDNISolone 40 MG/ML VIAL IVP SCH (16:23)
[2017-03-11 16:45] LABS: Basophils % 0.2 %; Eosinophils # 0.3 K/mcL (0.0-0.6); Eosinophils % 2.7 %; Immature Granulocytes % 1.1 % (0-4); Lymphocytes # 2.3 K/mcL (0.6-4.6); Mean Corpuscular Hemoglobin 25.2 pg (28.0-33.3); Mean Platelet Volume 9.9 fL (9.4-12.4); Monocytes # 0.8 K/mcL (0.0-1.3); Monocytes % 7.6 %; Platelet Count 279 K/mcL (140-400); Red Blood Count 3.57 M/mcL (3.82-4.97); Red Cell Distribution Width 17.3 % (11.5-14.5); Segmented Neutrophils % 66.4 %
[2017-03-11] MEDS: *HR* Morphine 2 MG/ML SYRINGE IVP PRN (21:40)
[2017-03-11] MEDS ORDERED: Ipratropium/Albuterol Neb 3 ML IH PRN (22:13)
[2017-03-11] MEDS ORDERED: Furosemide 20 MG/2 ML VIAL IVP ONE (22:20)
[2017-03-11 22:35] LABS: Eosinophils % 0.3 %; Hematocrit 29.9 % (35.3-44.9); Hemoglobin 8.9 g/dL (11.5-15.4); Immature Granulocytes % 1.5 % (0-4); Lymphocytes # 0.6 K/mcL (0.6-4.6); Lymphocytes % 7.3 %; Mean Corpuscular HGB Conc 29.8 g/dL (31.6-35.5); Mean Corpuscular Hemoglobin 24.6 pg (28.0-33.3); Mean Corpuscular Volume 82.6 fL (83.0-100.0); Mean Platelet Volume 10.2 fL (9.4-12.4); Monocytes # 0.1 K/mcL (0.0-1.3); Monocytes % 1.4 %; Neutrophils # 7.1 K/mcL (1.6-8.9); Platelet Count 260 K/mcL (140-400); Red Blood Count 3.62 M/mcL (3.82-4.97); Red Cell Distribution Width 17.2 % (11.5-14.5); Segmented Neutrophils % 89.5 %
[2017-03-12] MEDS: Ipratropium/Albuterol Neb 3 ML IH SCH ×6 (03:45→23:02)
[2017-03-12] MEDS: *HR* Morphine 2 MG/ML SYRINGE IVP PRN (04:01)
[2017-03-12] MEDS: *HR* Heparin 5,000 UNIT/ML VIAL SQ SCH ×2 (06:13→16:57)
[2017-03-12] MEDS: MethylPREDNISolone 40 MG/ML VIAL IVP SCH (06:13)
[2017-03-12 06:16] LABS: Basophils % 0.1 %; Eosinophils % 0.4 %; Hematocrit 29.2 % (35.3-44.9); Hemoglobin 8.6 g/dL (11.5-15.4); Immature Granulocytes % 2.2 % (0-4); Immature Platelets 3.3 % (1.1-6.1); Lymphocytes # 1.4 K/mcL (0.6-4.6); Lymphocytes % 18.1 %; Mean Corpuscular HGB Conc 29.5 g/dL (31.6-35.5); Mean Corpuscular Hemoglobin 24.6 pg (28.0-33.3); Mean Corpuscular Volume 83.7 fL (83.0-100.0); Mean Platelet Volume 10.1 fL (9.4-12.4); Monocytes # 0.6 K/mcL (0.0-1.3); Monocytes % 7.7 %; Neutrophils # 5.6 K/mcL (1.6-8.9); Platelet Count 257 K/mcL (140-400); Red Blood Count 3.49 M/mcL (3.82-4.97); Red Cell Distribution Width 17.2 % (11.5-14.5); Segmented Neutrophils % 71.5 %
[2017-03-12 06:34] LABS: BUN/Creatinine Ratio 32 (6-26); Blood Urea Nitrogen 25 mg/dL (7-20); Calcium 8.9 mg/dL (8.6-10.8); Carbon Dioxide 35 mEq/L (19-29); Chloride 95 mEq/L (98-109); Glucose 286 mg/dL (70-99); Osmolality,Calculated 303 (280-300); Sodium 139 mEq/L (136-145); eGFR For African Americans > 60 (> 60); eGFR For Non-African Americans > 60 (> 60)
[2017-03-12] MEDS: Furosemide 20 MG TABLET PO SCH ×2 (08:17→16:56)
[2017-03-12] MEDS: Azithromycin 250 MG TABLET PO SCH (08:17)
[2017-03-12] MEDS: Insulin LISPRO 300 UNITS/3 ML VIAL SQ SCH ×4 (08:18→20:20)
[2017-03-12 09:00] LABS: % Iron Saturation 8 % (15-50); Iron 27 mcg/dL (50-170); Transferrin 256 mg/dL (180-382)
[2017-03-12 09:23] LABS: Ferritin 54 ng/ml (5-204)
--- NOTE | 2017-03-12 11:25 | Internal Med Progress Note ---
<Jordan Esquivel - Last Filed: 03/12/17 11:23> Date of Encounter: 03/12/17 Time of Encounter: 11:23 - Assessment and plan (1) COPD exacerbation Current Visit: Yes Status: Acute Assessment and plan: likely multifactorial in setting of unresolved prior pneumonia, severe pulmonary HTN (type 3 secondary to COPD), non compliance with CPAP at home secondary to social issues, non compliance with antiboitic use after last hospital discharge. CXR showed reticular opacities throughout the lungs, possible mild interstitial edema or atypical infection, no obvious focal consolidation. legionella, strep pneumo antigen negative Plan: azithromycin and ceftriaxone day 3 scheduled DuoNebs steroids continue CPAP continue home dose of lasix. (2) Anemia Current Visit: Yes Status: Acute Assessment and plan: note drop in Hg from admission from 10 to 8.2 low iron, ferritin normal. Plan: stool guiac pending will repeat CBC this evening appreciate GI recs likely scope on Wednesday Qualifiers: Anemia type: unspecified type Qualified Code(s): D64.9 - Anemia, unspecified (3) Pneumonia Current Visit: Yes Status: Acute Assessment and plan: plan as above. Qualifiers: Pneumonia type: due to unspecified organism Laterality: bilateral Lung location: unspecified part of lung Qualified Code(s): J18.9 - Pneumonia, unspecified organism (4) Dyspnea Current Visit: Yes Status: Acute Assessment and plan: plan as #1 above. Qualifiers: Dyspnea type: shortness of breath Qualified Code(s): R06.02 - Shortness of breath; R06.00 - Dyspnea, unspecified; R06.01 - Orthopnea (5) Congestive heart failure Current Visit: Yes Status: Acute Assessment and plan: repeat echo showed LVEF 65%, mild concentric LVH, moderate LV diastolic dysfunction, normal RV size and fucntion, mildly dilated left atrium, mildly dilated right atrium, moderate mitral annular calcification, mild to moderate mitral stenosis, severe pulmonary HTN, RVSP 66. pulm HTN likely main contributing to her dyspnea. Qualifiers: Congestive heart failure type: diastolic Congestive heart failure chronicity: unspecified congestive heart failure chronicity Qualified Code(s) : I50.30 - Unspecified diastolic (congestive) heart failure (6) Weakness Current Visit: Yes Status: Acute Assessment and plan: consult to PT/OT (7) Diabetes Current Visit: Yes Status: Chronic Assessment and plan: hold metformin. low dose SSI with ACHS accuchecks. Qualifiers: Diabetes mellitus type: type 2 Diabetes mellitus complication status: with unspecified complications Diabetes mellitus fdc insulin use: unspecified predatory animal exterminator insulin use status Qualified Code(s): E11.8 - Type 2 diabetes mellitus with unspecified complications (8) DVT prophylaxis Current Visit: Yes Status: Acute Assessment and plan: Heparin SQ - Subjective Interval history: 76 year old female evaluated at bedside. patient denies nauesa, vomiting, diarrhea, fever, chills, chest pain. she admits to some shortness of beath. she denies any further problems today. - Constitutional Vitals: Temp Pulse Resp BP Pulse Ox 98.3 F 75 16 153/68 93 03/12/17 07:43 03/12/17 07:43 03/12/17 11:17 03/12/17 07:43 03/12/17 11:17 General appearance: Present: cooperative, mild distress (Respiratory), A&O X 3, pleasant, obese, answers questions appropriately - Head Head exam: Present: atraumatic, normocephalic - Neck Neck exam general surgery: Present: supple, trachea midline - Respiratory Respiratory exam: Present: decreased breath sounds Additional comments: decreased breath sounds noted. throughout. - Cardiovascular Cardiovascular exam: Present: RRR, +S1, +S2 - GI/Abdominal GI/Abdominal exam: Present: normal bowel sounds, soft. Absent: distended, tenderness Additional comments: abdominal hernia present. - Extremities Exam Extremities exam: Absent: cyanotic, pedal edema - Neurological Exam Neurological exam: Present: alert, oriented X3, no focal deficits - Psychiatric Psychiatric exam: Present: normal affect, normal mood - Skin Skin exam: Present: intact Internal Medicine: Result - Labs CBC & Chem 7: 03/12/17 05:19 03/12/17 05:19 Labs: Short CBC 03/11/17 03/12/17 Range/Units 22:27 05:19 WBC 7.9 7.8 (4.3-11.1) K/mcL Hgb 8.9 L 8.6 L (11.5-15.4) g/dL Hct 29.9 L 29.2 L (35.3-44.9) % Plt Count 260 257 (140-400) K/mcL Neutrophils # 7.1 5.6 (1.6-8.9) K/mcL BMP 03/12/17 05:19 Sodium 139 Potassium 4.0 Chloride 95 L Carbon Dioxide 35 H BUN 25 H Creatinine 0.78 Glucose 286 H Calcium 8.9 - ABG Interpretation ABG results: ABG ABG pH 7.43 pH Units (7.32-7.45) 03/11/17 03:42 ABG pCO2 59 mmHg (35-45) H 03/11/17 03:42 ABG pO2 69 mmHg (85-104) L 03/11/17 03:42 ABG O2 Saturation 94 % (95-98) L 03/11/17 03:42 PT/INR, D-dimer PT 11.8 Seconds (9.4-12.1) 03/11/17 05:53 Consult Discharge Plan - Plan Referrals: [facility] [Outside] (web request sent on 03/11/17) <Norm San P - Last Filed: 03/12/17 20:15> Date of Encounter: 03/12/17 - Constitutional Vitals: Temp Pulse Resp BP Pulse Ox 98 F 105 18 153/58 95 03/12/17 18:58 03/12/17 18:58 03/12/17 19:45 03/12/17 18:58 03/12/17 19:45 Internal Medicine: Result - Labs CBC & Chem 7: 03/12/17 18:51 03/12/17 05:19 Labs: Short CBC 03/11/17 03/12/17 03/12/17 Range/Units 22:27 05:19 18:51 WBC 7.9 7.8 10.6 (4.3-11.1) K/mcL Hgb 8.9 L 8.6 L 9.0 L (11.5-15.4) g/dL Hct 29.9 L 29.2 L 30.3 L (35.3-44.9) % Plt Count 260 257 294 (140-400) K/mcL Neutrophils # 7.1 5.6 8.0 (1.6-8.9) K/mcL BMP 03/12/17 05:19 Sodium 139 Potassium 4.0 Chloride 95 L Carbon Dioxide 35 H BUN 25 H Creatinine 0.78 Glucose 286 H Calcium 8.9 - ABG Interpretation ABG results: ABG ABG pH 7.43 pH Units (7.32-7.45) 03/11/17 03:42 ABG pCO2 59 mmHg (35-45) H 03/11/17 03:42 ABG pO2 69 mmHg (85-104) L 03/11/17 03:42 ABG O2 Saturation 94 % (95-98) L 03/11/17 03:42 PT/INR, D-dimer PT 11.8 Seconds (9.4-12.1) 03/11/17 05:53 - Attending Attestation I examined this patient and my medical decision-making was reviewed with the Resident Physician. I agree with the documented findings, disposition and treatment plan as described except to the extent set forth below.
[2017-03-12] MEDS ORDERED: Albuterol 2.5 MG/3 ML NEBULIZER IH PRN (11:37)
--- NOTE | 2017-03-12 11:38 | Gastroenterology Consult Note ---
<Connor Chiang - Last Filed: 03/12/17 11:35> Date of Encounter: 03/12/17 Time of Encounter: 09:50 - Assessment and plan (1) Anemia Current Visit: Yes Status: Acute Assessment and plan: Hgb 10 and decreased to 8.2 on 03/11. Today, Hgb 8.6. Fecal occult blood test positive on 03/11. Continue to monitor CBC and transfuse PRBC as needed. Plan for EGD and colonoscopy on Wednesday. Clear liquid diet Wednesday, no red or purple. NPO at midnight Wednesday night. If unable tolerate NuLytely please use MiraLAX prep. If not clear by 6 AM Wednesday, give 2 tap water enemas. Qualifiers: Anemia type: unspecified type Qualified Code(s): D64.9 - Anemia, unspecified (2) Congestive heart failure Current Visit: Yes Status: Acute Assessment and plan: Management per primary team. Qualifiers: Congestive heart failure type: diastolic Congestive heart failure chronicity: unspecified congestive heart failure chronicity Qualified Code(s) : I50.30 - Unspecified diastolic (congestive) heart failure (3) Dyspnea Current Visit: Yes Status: Acute Assessment and plan: Management per primary team. Qualifiers: Dyspnea type: shortness of breath Qualified Code(s): R06.02 - Shortness of breath; R06.00 - Dyspnea, unspecified; R06.01 - Orthopnea - Time Spent With Patient Total time spent is greater than 50% in coordination of care (as documented) at patient's floor/unit and/or counseling patient: GI History of Present Illness - Data of Consult Patient: new to practice Consult date: 03/12/17 Requesting Physician: Norm San MD - Consult Narrative Reason for consult: anemia History of present illness: Ms. Guillen is a 76 year old female with PMHx of lung cancer, CHF, COPD who presented to the ED with c/o SOB and dyspnea. She was recently hospitalized at [place] for pneumonia from 03/05-. She denies fever, chills, chest pain, abdominal pain, nausea, vomiting, diarrhea, constipation, melena, or hematochezia. We were consulted to evaluate her anemia. On admission, Hgb 10 and decreased to 8.2 on 03/11. Today, Hgb 8.6. Fecal occult blood test positive on 03/11. Procedures: EGD 2010 [facility], per pt report. NSAIDs: ASA Anticoagulation: None Past Med Surg Social Fam HX - Past Medical History Medical history: cancer (Lung - resolved), CHF, COPD, other Psychiatric history: no psych history - Past Surgical History Surgical History: hysterectomy - Social History Smoking Status: Former smoker Packs per day: 1-1.5 PPD - reports quitting 4-5 months ago Smokeless Tobacco Status: No Alcohol use: none Drug use: none - Family History Mother Race: Family Member Ethnicity: Non- Living Status: Age at : 73 Cause of : Stroke Hx Family Cardiac Disorders: Yes (HTN) Hx Family Respiratory Disorders: No Hx Family Cancer: No Hx Family GI Disorders: No Hx Family Genitourinary Disorders: No Hx Family Endocrine Disorder: Yes (DM) Hx Family Musculoskeletal Disorders: No Hx Family Neuromuscular Disorders: No Hx Family Neurologic Disorders: No Hx Family HEENT Disorders: No Hx Family Autoimmune Disorders: No Hx Family Reproductive Disorders: No Hx Family Psychosocial Disorders: No Hx Family Medical Disorders: No Father Race: Family Member Ethnicity: Non- Living Status: Age at : 73 Cause of : Cancer Hx Family Cancer: Yes (Unknown) Sister Race: Family Member Ethnicity: Non- Living Status: Age at : 60 Cause of : Lung cancer Hx Family Cancer: Yes (Lung) - Gastrointestinal Gastrointestinal: Present: as per HPI - Constitutional Constitutional: as per HPI - EENT Eyes: as per HPI Ears: Present: as per HPI Nose, mouth and throat: Present: as per HPI - Cardiovascular Cardiovascular ROS: Present: as per HPI - Respiratory Respiratory IM: Present: as per HPI - Genitourinary Genitourinary: Absent: change in color, Urinary frequency - Neurological ROS Neurological GI: Present: as per HPI - Hematologic/Lymphatic Hematologic/Lymphatic pediatric: Present: as per HPI - Musculoskeletal Musculoskeletal ROS GI: Present: as per HPI - Integumentary Integumentary GI: Present: as per HPI - Psychiatric ROS Psychiatric GI: Present: as per HPI - Endocrine Endocrine IM: Present: as per HPI - Constitutional Vitals: Temp Pulse Resp BP Pulse Ox 98.5 F 79 22 136/61 99 03/12/17 11:29 03/12/17 11:29 03/12/17 11:29 03/12/17 11:29 03/12/17 11:29 General appearance: Present: cooperative, mild distress (SOB), A&O X 3, answers questions appropriately - Head Head exam: Present: atraumatic, normocephalic - Eye Eye exam: Present: normal appearance, sclera anicteric - ENT ENT exam: Present: mucous membranes dry - Neck Neck exam general surgery: Present: normal inspection, trachea midline - Respiratory Respiratory exam: Present: decreased breath sounds, wheezes - Cardiovascular Cardiovascular exam: Present: RRR, +S1, +S2 - GI/Abdominal GI/Abdominal exam: Present: soft, no peritoneal signs. Absent: distended, firm , guarding, tenderness Additional comments: abdominal hernia - Rectal Rectal exam: Present: deferred - Extremities Exam Extremities exam: Present: warm - Neurological Exam Neurological exam: Present: no focal deficits - Psychiatric Psychiatric exam: Present: normal affect, normal mood - Skin Skin exam: Present: dry, intact, normal color, warm Results - Labs CBC & Chem 7: 03/12/17 05:19 03/12/17 05:19 Labs: Last Result Calcium 8.9 mg/dL (8.6-10.8) 03/12/17 05:19 Iron 27 mcg/dL (50-170) L 03/12/17 05:19 % Saturation 8 % (15-50) L 03/12/17 05:19 Transferrin 256 mg/dL (180-382) 03/12/17 05:19 Ferritin 54 ng/ml (5-204) 03/12/17 05:19 Troponin I 0.02 ng/mL (0-0.03) 03/10/17 16:39 Triglycerides 69 mg/dL (< 150) 03/11/17 05:53 Stool Occult Blood Positive (Negative) A 03/11/17 17:49 Entire Visit Hgb 8.6 g/dL (11.5-15.4) L 03/12/17 05:19 Hct 29.2 % (35.3-44.9) L 03/12/17 05:19 PT 11.8 Seconds (9.4-12.1) 03/11/17 05:53 Ferritin 54 ng/ml (5-204) 03/12/17 05:19 - ABG ABG results: ABG ABG pH 7.43 pH Units (7.32-7.45) 03/11/17 03:42 ABG pCO2 59 mmHg (35-45) H 03/11/17 03:42 ABG pO2 69 mmHg (85-104) L 03/11/17 03:42 ABG O2 Saturation 94 % (95-98) L 03/11/17 03:42 PT/INR, D-dimer PT 11.8 Seconds (9.4-12.1) 03/11/17 05:53 Consult Discharge Plan - Plan Referrals: [facility] [Outside] (web request sent on 03/11/17) <Dori Mensah - Last Filed: 03/12/17 12:22> Date of Encounter: 03/12/17 Time of Encounter: 10:00 - Time Spent With Patient Total time spent is greater than 50% in coordination of care (as documented) at patient's floor/unit and/or counseling patient: GI History of Present Illness - Data of Consult Requesting Physician: Norm San MD - Consult Narrative History of present illness: Ms. Guillen is a 76 year old female - Constitutional Vitals: Temp Pulse Resp BP Pulse Ox 98.5 F 79 22 136/61 99 03/12/17 11:29 03/12/17 11:29 03/12/17 11:29 03/12/17 11:29 03/12/17 11:29 Results - Labs CBC & Chem 7: 03/12/17 05:19 03/12/17 05:19 Labs: Last Result Calcium 8.9 mg/dL (8.6-10.8) 03/12/17 05:19 Iron 27 mcg/dL (50-170) L 03/12/17 05:19 % Saturation 8 % (15-50) L 03/12/17 05:19 Transferrin 256 mg/dL (180-382) 03/12/17 05:19 Ferritin 54 ng/ml (5-204) 03/12/17 05:19 Troponin I 0.02 ng/mL (0-0.03) 03/10/17 16:39 Triglycerides 69 mg/dL (< 150) 03/11/17 05:53 Stool Occult Blood Positive (Negative) A 03/11/17 17:49 Entire Visit Hgb 8.6 g/dL (11.5-15.4) L 03/12/17 05:19 Hct 29.2 % (35.3-44.9) L 03/12/17 05:19 PT 11.8 Seconds (9.4-12.1) 03/11/17 05:53 Ferritin 54 ng/ml (5-204) 03/12/17 05:19 - ABG ABG results: ABG ABG pH 7.43 pH Units (7.32-7.45) 03/11/17 03:42 ABG pCO2 59 mmHg (35-45) H 03/11/17 03:42 ABG pO2 69 mmHg (85-104) L 03/11/17 03:42 ABG O2 Saturation 94 % (95-98) L 03/11/17 03:42 PT/INR, D-dimer PT 11.8 Seconds (9.4-12.1) 03/11/17 05:53 - Attending Attestation I examined this patient and my medical decision-making was reviewed with the Resident Physician. I agree with the documented findings, disposition and treatment plan as described except to the extent set forth below.
[2017-03-12 19:04] LABS: Basophils % 0.1 %; Eosinophils # 0.1 K/mcL (0.0-0.6); Eosinophils % 0.5 %; Hematocrit 30.3 % (35.3-44.9); Immature Granulocytes % 1.4 % (0-4); Lymphocytes # 1.7 K/mcL (0.6-4.6); Lymphocytes % 15.7 %; Mean Corpuscular HGB Conc 29.7 g/dL (31.6-35.5); Mean Corpuscular Hemoglobin 24.6 pg (28.0-33.3); Mean Corpuscular Volume 82.8 fL (83.0-100.0); Mean Platelet Volume 9.9 fL (9.4-12.4); Monocytes # 0.7 K/mcL (0.0-1.3); Monocytes % 6.7 %; Nucleated Red Blood Cells 0.2 /100 WBC (0); Platelet Count 294 K/mcL (140-400); Red Blood Count 3.66 M/mcL (3.82-4.97); Segmented Neutrophils % 75.6 %
[2017-03-13] MEDS: Ipratropium/Albuterol Neb 3 ML IH SCH ×6 (03:45→23:40)
[2017-03-13 04:10] LABS: Basophils % 0.1 %; Eosinophils # 0.3 K/mcL (0.0-0.6); Eosinophils % 2.8 %; Hematocrit 27.5 % (35.3-44.9); Hemoglobin 8.3 g/dL (11.5-15.4); Lymphocytes # 2.6 K/mcL (0.6-4.6); Mean Corpuscular HGB Conc 30.2 g/dL (31.6-35.5); Mean Corpuscular Hemoglobin 25.3 pg (28.0-33.3); Mean Corpuscular Volume 83.8 fL (83.0-100.0); Mean Platelet Volume 10.3 fL (9.4-12.4); Monocytes # 0.7 K/mcL (0.0-1.3); Monocytes % 7.5 %; Neutrophils # 6.2 K/mcL (1.6-8.9); Platelet Count 262 K/mcL (140-400); Red Blood Count 3.28 M/mcL (3.82-4.97); Red Cell Distribution Width 17.2 % (11.5-14.5); Segmented Neutrophils % 62.6 %
[2017-03-13 04:27] LABS: BUN/Creatinine Ratio 32 (6-26); Blood Urea Nitrogen 25 mg/dL (7-20); Calcium 8.6 mg/dL (8.6-10.8); Carbon Dioxide 34 mEq/L (19-29); Chloride 97 mEq/L (98-109); Glucose 234 mg/dL (70-99); Osmolality,Calculated 302 (280-300); Potassium 3.6 mEq/L (3.5-4.5); Sodium 140 mEq/L (136-145); eGFR For African Americans > 60 (> 60); eGFR For Non-African Americans > 60 (> 60)
[2017-03-13] MEDS: *HR* Heparin 5,000 UNIT/ML VIAL SQ SCH (05:00)
[2017-03-13] MEDS: Insulin LISPRO 300 UNITS/3 ML VIAL SQ SCH ×4 (08:17→21:13)
[2017-03-13] MEDS: Furosemide 20 MG TABLET PO SCH ×2 (08:18→16:55)
[2017-03-13] MEDS: Azithromycin 250 MG TABLET PO SCH (08:18)
[2017-03-13] MEDS: predniSONE 20 MG TABLET PO SCH (08:18)
[2017-03-13 10:26] LABS: Hemoglobin 9.4 g/dL (11.5-15.4)
--- NOTE | 2017-03-13 11:12 | Internal Med Progress Note ---
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 please see social work note. she refuses sleep study as well. CXR showed reticular opacities throughout the lungs, possible mild interstitial edema or atypical infection, no obvious focal consolidation. legionella, strep pneumo antigen negative Plan: azithromycin and ceftriaxone scheduled DuoNebs steroids continue CPAP continue home dose of lasix. (2) Anemia Current Visit: Yes Status: Acute Assessment and plan: note drop in Hg from admission from 10 to 8.2 low iron, ferritin normal. stool guiac positive- consult to GI Plan: EGD/colonoscopy Thursday 03/15 Clear liquid diet starting tonight. no red or purple dyes NPO after midnight tomorrow. use Nu-Lytely prep. if unable to tolate, use miralax prep. if not clear by 6am use 2 water tap enemas. Qualifiers: Anemia type: unspecified type Qualified Code(s): D64.9 - Anemia, unspecified (3) Pneumonia Current Visit: Yes Status: Acute Assessment and plan: plan as above. Qualifiers: Pneumonia type: due to unspecified organism Laterality: bilateral Lung location: unspecified part of lung Qualified Code(s): J18.9 - Pneumonia, unspecified organism (4) Dyspnea Current Visit: Yes Status: Acute Assessment and plan: plan as #1 above. Qualifiers: Dyspnea type: shortness of breath Qualified Code(s): R06.02 - Shortness of breath; R06.00 - Dyspnea, unspecified; R06.01 - Orthopnea (5) Congestive heart failure Current Visit: Yes Status: Acute Assessment and plan: repeat echo showed LVEF 65%, mild concentric LVH, moderate LV diastolic dysfunction, normal RV size and fucntion, mildly dilated left atrium, mildly dilated right atrium, moderate mitral annular calcification, mild to moderate mitral stenosis, severe pulmonary HTN, RVSP 66. pulm HTN and non compliance with CPAP likely mainly contributing to her dyspnea. Qualifiers: Congestive heart failure type: diastolic Congestive heart failure chronicity: unspecified congestive heart failure chronicity Qualified Code(s) : I50.30 - Unspecified diastolic (congestive) heart failure (6) Weakness Current Visit: Yes Status: Acute Assessment and plan: consult to PT/OT they recommended home health at discharge. (7) Diabetes Current Visit: Yes Status: Chronic Assessment and plan: hold metformin. low dose SSI with ACHS accuchecks. Qualifiers: Diabetes mellitus type: type 2 Diabetes mellitus complication status: with unspecified complications Diabetes mellitus terminal block assembler insulin use: unspecified terminal block assembler insulin use status Qualified Code(s): E11.8 - Type 2 diabetes mellitus with unspecified complications (8) DVT prophylaxis Current Visit: Yes Status: Acute Assessment and plan: EPCDs - Subjective Interval history: 76 year old female evaluated at bedside. patient denies nauesa, vomiting, diarrhea, fever, chills, chest pain. she admits to some shortness of breath. she denies any further problems today. - Constitutional Vitals: Temp Pulse Resp BP Pulse Ox 97.7 F 86 18 128/72 90 03/13/17 10:55 03/13/17 10:55 03/13/17 10:55 03/13/17 10:55 03/13/17 10:55 General appearance: Present: cooperative, A&O X 3, pleasant, obese, answers questions appropriately - Head Head exam: Present: atraumatic, normocephalic - Neck Neck exam general surgery: Present: supple, trachea midline - Respiratory Additional comments: mild bilateral upper lobe rales. no wheezing heard today - Cardiovascular Cardiovascular exam: Present: RRR, +S1, +S2 - GI/Abdominal GI/Abdominal exam: Present: normal bowel sounds, soft. Absent: distended, tenderness Additional comments: abdominal hernia present. - Extremities Exam Additional comments: no cyanosis, edema, or clubbing. bilateral lower extremities are red. - Neurological Exam Neurological exam: Present: alert, oriented X3, no focal deficits Internal Medicine: Result - Labs CBC & Chem 7: 03/13/17 10:06 03/13/17 03:13 Labs: Short CBC 03/12/17 03/13/17 03/13/17 Range/Units 18:51 03:13 10:06 WBC 10.6 9.9 (4.3-11.1) K/mcL Hgb 9.0 L 8.3 L 9.4 L (11.5-15.4) g/dL Hct 30.3 L 27.5 L 32.0 L (35.3-44.9) % Plt Count 294 262 (140-400) K/mcL Neutrophils # 8.0 6.2 (1.6-8.9) K/mcL BMP 03/13/17 03:13 Sodium 140 Potassium 3.6 Chloride 97 L Carbon Dioxide 34 H BUN 25 H Creatinine 0.78 Glucose 234 H Calcium 8.6 - ABG Interpretation ABG results: ABG ABG pH 7.43 pH Units (7.32-7.45) 03/11/17 03:42 ABG pCO2 59 mmHg (35-45) H 03/11/17 03:42 ABG pO2 69 mmHg (85-104) L 03/11/17 03:42 ABG O2 Saturation 94 % (95-98) L 03/11/17 03:42 PT/INR, D-dimer PT 11.8 Seconds (9.4-12.1) 03/11/17 05:53 - VTE Documentation of Mechanical Device: Intermittent pneumatic compression device Consult Discharge Plan - Plan Referrals: [facility] [Outside] (web request sent on 03/11/17) <Norm San P - Last Filed: 03/13/17 15:32> Date of Encounter: 03/13/17 - Constitutional Vitals: Temp Pulse Resp BP Pulse Ox 97.7 F 86 20 128/72 92 03/13/17 10:55 03/13/17 10:55 03/13/17 11:08 03/13/17 10:55 03/13/17 11:08 Internal Medicine: Result - Labs CBC & Chem 7: 03/13/17 10:06 03/13/17 03:13 Labs: Short CBC 03/12/17 03/13/17 03/13/17 Range/Units 18:51 03:13 10:06 WBC 10.6 9.9 (4.3-11.1) K/mcL Hgb 9.0 L 8.3 L 9.4 L (11.5-15.4) g/dL Hct 30.3 L 27.5 L 32.0 L (35.3-44.9) % Plt Count 294 262 (140-400) K/mcL Neutrophils # 8.0 6.2 (1.6-8.9) K/mcL BMP 03/13/17 03:13 Sodium 140 Potassium 3.6 Chloride 97 L Carbon Dioxide 34 H BUN 25 H Creatinine 0.78 Glucose 234 H Calcium 8.6 - ABG Interpretation ABG results: ABG ABG pH 7.43 pH Units (7.32-7.45) 03/11/17 03:42 ABG pCO2 59 mmHg (35-45) H 03/11/17 03:42 ABG pO2 69 mmHg (85-104) L 03/11/17 03:42 ABG O2 Saturation 94 % (95-98) L 03/11/17 03:42 PT/INR, D-dimer PT 11.8 Seconds (9.4-12.1) 03/11/17 05:53 - Attending Attestation I examined this patient and my medical decision-making was reviewed with the Resident Physician. I agree with the documented findings, disposition and treatment plan as described except to the extent set forth below. Regarding anemia: Patient does not have significant drop of hemoglobin. Definitely hemoglobin is not less than 8. Plan: Patient does not need transfusion at this point.
[2017-03-14] MEDS: Ipratropium/Albuterol Neb 3 ML IH SCH ×6 (03:45→23:11)
[2017-03-14 05:03] LABS: Basophils % 0.2 %; Eosinophils # 0.3 K/mcL (0.0-0.6); Eosinophils % 2.7 %; Hematocrit 30.7 % (35.3-44.9); Immature Granulocytes % 1.1 % (0-4); Lymphocytes % 23.9 %; Mean Corpuscular HGB Conc 29.3 g/dL (31.6-35.5); Mean Corpuscular Hemoglobin 24.7 pg (28.0-33.3); Mean Corpuscular Volume 84.1 fL (83.0-100.0); Mean Platelet Volume 10.1 fL (9.4-12.4); Monocytes # 0.6 K/mcL (0.0-1.3); Monocytes % 6.1 %; Neutrophils # 6.2 K/mcL (1.6-8.9); Platelet Count 316 K/mcL (140-400); Red Blood Count 3.65 M/mcL (3.82-4.97)
[2017-03-14 05:05] LABS: Lymphocytes # 2.3 K/mcL (0.6-4.6)
[2017-03-14 05:22] LABS: BUN/Creatinine Ratio 25 (6-26); Blood Urea Nitrogen 21 mg/dL (7-20); Calcium 8.6 mg/dL (8.6-10.8); Carbon Dioxide 32 mEq/L (19-29); Chloride 98 mEq/L (98-109); Glucose 253 mg/dL (70-99); Osmolality,Calculated 300 (280-300); Sodium 139 mEq/L (136-145); eGFR For African Americans > 60 (> 60); eGFR For Non-African Americans > 60 (> 60)
[2017-03-14 05:40] LABS: Anisocytosis 1+ (Not Present); Hypochromasia Present (Not Present); Microcytosis Present (Not Present); Platelet Estimate Normal (Normal)
[2017-03-14] MEDS: Furosemide 20 MG TABLET PO SCH ×2 (08:22→16:38)
[2017-03-14] MEDS: Azithromycin 250 MG TABLET PO SCH (08:22)
[2017-03-14] MEDS: predniSONE 20 MG TABLET PO SCH (08:22)
[2017-03-14] MEDS: Insulin LISPRO 300 UNITS/3 ML VIAL SQ SCH ×4 (08:23→21:22)
--- NOTE | 2017-03-14 15:07 | Internal Med Progress Note ---
Date of Encounter: 03/14/17 Time of Encounter: 15:05 - Assessment and plan (1) Anemia Current Visit: Yes Status: Acute Qualifiers: Anemia type: unspecified type Qualified Code(s): D64.9 - Anemia, unspecified (2) COPD exacerbation Current Visit: Yes Status: Acute (3) Congestive heart failure Current Visit: Yes Status: Acute Qualifiers: Congestive heart failure type: diastolic Congestive heart failure chronicity: unspecified congestive heart failure chronicity Qualified Code(s) : I50.30 - Unspecified diastolic (congestive) heart failure (4) Diabetes Current Visit: Yes Status: Chronic Qualifiers: Diabetes mellitus type: type 2 Diabetes mellitus complication status: with unspecified complications Diabetes mellitus care home insulin 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 Chart reviewed. Patient is comfortably sitting in a chair and combing her hair. Patient denies chest pain, shortness of breath, nausea, vomiting, abdominal pain or diarrhea. - Constitutional Vitals: Temp Pulse Resp BP Pulse Ox 97.7 F 77 16 159/67 94 03/14/17 11:19 03/14/17 11:19 03/14/17 11:19 03/14/17 11:19 03/14/17 11:19 General appearance: Present: cooperative, A&O X 3, pleasant, obese, answers questions appropriately - Head Head exam: Present: atraumatic, normocephalic - Eye Eye exam: Present: PERRL, conjuntiva pink, sclera anicteric Pupils: Present: PERRL - Neck Neck exam general surgery: Present: supple, trachea midline. Absent: lymphadenopathy - Respiratory Respiratory exam: Present: CTAB. Absent: accessory muscle use, rales, rhonchi, wheezes - Cardiovascular Cardiovascular exam: Present: RRR, +S1, +S2. Absent: diastolic murmur, gallop, rubs, systolic murmur - GI/Abdominal GI/Abdominal exam: Present: normal bowel sounds, soft, no peritoneal signs. Absent: distended, tenderness - Extremities Exam Extremities exam: Present: warm, radial pulses palpable and symmetrical. Absent : calf tenderness, cyanotic, pedal edema - Neurological Exam Neurological exam: Present: CN II-XII intact, oriented X3, no focal deficits. Absent: pronater drift, facial droop, speech deficit - Skin Skin exam: Present: dry, intact Internal Medicine: Result - Labs CBC & Chem 7: 03/14/17 04:22 03/14/17 04:22 Labs: Short CBC 03/14/17 Range/Units 04:22 WBC 9.4 (4.3-11.1) K/mcL Hgb 9.0 L (11.5-15.4) g/dL Hct 30.7 L (35.3-44.9) % Plt Count 316 (140-400) K/mcL Neutrophils # 6.2 (1.6-8.9) K/mcL BMP 03/14/17 04:22 Sodium 139 Potassium 4.0 Chloride 98 Carbon Dioxide 32 H BUN 21 H Creatinine 0.85 Glucose 253 H Calcium 8.6 - ABG Interpretation ABG results: ABG ABG pH 7.43 pH Units (7.32-7.45) 03/11/17 03:42 ABG pCO2 59 mmHg (35-45) H 03/11/17 03:42 ABG pO2 69 mmHg (85-104) L 03/11/17 03:42 ABG O2 Saturation 94 % (95-98) L 03/11/17 03:42 PT/INR, D-dimer PT 11.8 Seconds (9.4-12.1) 03/11/17 05:53 - VTE Documentation of Mechanical Device: Intermittent pneumatic compression device Consult Discharge Plan - Plan Referrals: [facility] [Outside] (web request sent on 03/11/17)
[2017-03-14] MEDS ORDERED: SODIUM CHLORIDE/NAHCO3/KCL/PEG 4,000 ML SOLN.RECON PO ONE (17:00)
[2017-03-14] MEDS: Acetaminophen 325 MG TABLET PO PRN (21:37)
[2017-03-15] MEDS: Ipratropium/Albuterol Neb 3 ML IH SCH ×5 (03:17→19:59)
[2017-03-15 04:05] LABS: Basophils % 0.1 %; Eosinophils # 0.2 K/mcL (0.0-0.6); Eosinophils % 2.3 %; Hematocrit 32.8 % (35.3-44.9); Hemoglobin 9.6 g/dL (11.5-15.4); Lymphocytes # 2.8 K/mcL (0.6-4.6); Lymphocytes % 27.1 %; Mean Corpuscular HGB Conc 29.3 g/dL (31.6-35.5); Mean Corpuscular Hemoglobin 24.8 pg (28.0-33.3); Mean Corpuscular Volume 84.8 fL (83.0-100.0); Monocytes # 0.8 K/mcL (0.0-1.3); Monocytes % 7.2 %; Neutrophils # 6.5 K/mcL (1.6-8.9); Platelet Count 354 K/mcL (140-400); Red Blood Count 3.87 M/mcL (3.82-4.97); Red Cell Distribution Width 17.1 % (11.5-14.5); Segmented Neutrophils % 62.3 %
[2017-03-15 04:22] LABS: Alanine Aminotransferase 14 Units/L (0-55); Albumin 3.4 g/dL (3.5-5.0); Albumin/Globulin Ratio 1.1 (1.1-2.2); Alkaline Phosphatase 56 Units/L (38-126); Aspartate Amino Transferase 11 Units/L (5-34); BUN/Creatinine Ratio 18 (6-26); Bilirubin,Total 0.5 mg/dL (0.2-1.2); Blood Urea Nitrogen 13 mg/dL (7-20); Calcium 9.3 mg/dL (8.6-10.8); Carbon Dioxide 35 mEq/L (19-29); Chloride 98 mEq/L (98-109); Glucose 122 mg/dL (70-99); Osmolality,Calculated 293 (280-300); Potassium 3.7 mEq/L (3.5-4.5); Sodium 141 mEq/L (136-145); Total Protein 6.4 g/dL (6.0-8.3); eGFR For African Americans > 60 (> 60); eGFR For Non-African Americans > 60 (> 60)
[2017-03-15] MEDS: Furosemide 20 MG TABLET PO SCH ×2 (07:45→17:16)
[2017-03-15] MEDS: Insulin LISPRO 300 UNITS/3 ML VIAL SQ SCH ×4 (07:45→20:51)
[2017-03-15] MEDS: predniSONE 20 MG TABLET PO SCH (07:45)
--- NOTE | 2017-03-15 12:08 | Anesthesia Evaluation PreOp ---
Date of Encounter: 03/15/17 Time of Encounter: 13:14 - Past History Planned Operation: EGD/Colonoscopy Cardiac History: CHF, HTN, Hyperlipidemia Pulmonary History: Former smoker (quit 4 months ago, smoked for 60 years), COPD (home O2 at 3L), MOO Dx (CPAP), Other (H/O lung CA S/P chemo/XRT) POLE CUTTER History: Denies Any Significant HX Other Medical History: Diabetes Type II Anesthesia History: No Prior Anesthetic Complications, Past Anesthesia Alcohol Use: none Drug use: none Medications and Allergies Albuterol Sulfate [Albuterol Inhaler] 2 puff IH Q6H PRN 03/11/17 [History] Aspirin [Lo-Dose Aspirin EC] 81 mg PO DAILY 03/11/17 [History] Atorvastatin [Lipitor] 10 mg PO HS 03/11/17 [History] Esomeprazole Magnesium [Nexium] 40 mg PO DAILY 03/11/17 [History] FLUoxetine HCl [Fluoxetine HCl] 10 mg PO DAILY 03/11/17 [History] Furosemide [Lasix] 20 mg PO BID 03/11/17 [History] Lisinopril [Zestril] 5 mg PO DAILY 03/11/17 [History] Magnesium Oxide [Magnesium] 400 mg PO DAILY 03/11/17 [History] Oxybutynin [Ditropan] 5 mg PO DAILY 03/11/17 [History] Potassium Chloride [K-Tab ER] 10 meq PO DAILY 03/11/17 [History] metFORMIN [Glucophage] 850 mg PO BIDWM 03/11/17 [History] Cefdinir [Omnicef] 300 mg PO BID #4 capsule 03/15/17 [Rx] Fluticasone/Vilanterol [Breo Ellipta 100-25 Mcg INH] 1 each IH DAILY #1 blst.w.dev 03/15/17 [Rx] predniSONE [PredniSONE] 40 mg PO DAILY #6 tab 03/15/17 [Rx] 3 Allergy/AdvReac Type Severity Reaction Status Date / Time Penicillins Allergy Anaphylaxis Verified 03/10/17 15:33 - Meds/Allergy Pre-op Review Medications Reviewed: Yes Allergies Reviewed: Yes Beta Blockers on Current Med List: No Anesthesia Results - Labs 03/15/17 03:25 03/15/17 03:25 Laboratory Tests 03/11/17 05:53 PT 11.8 INR 1.1 APTT 25.4 L - Imaging EKG: report reviewed (03/10/2017 SR) Additional studies: 03/11/2017 Echo Impressions: Normal LV systolic function, LVEF 65%. Mild concentric left ventricular hypertrophy. Moderate left ventricular diastolic dysfunction. Normal right ventricular size and function. Mildly dilated left atrium. Mildly dilated right atrium. Moderate mitral annular calcification. Mild-moderate mitral stenosis. Severe pulmonary hypertension. Estimated RVSP = 66 mmHg. Anesthesia Exam Vital Signs/O2 Sat/Glucose, Most Recent Temp Pulse Resp BP Pulse Ox 97.9 F 83 18 125/73 95 03/15/17 11:13 03/15/17 11:13 03/15/17 11:24 03/15/17 11:13 03/15/17 11:24 Blood Glucose* 205 Height: 5'1''/1.55 m Weight: 196 lbs/89 kg NPO (# of Hours): 8 Pain Scale: 0 Pain Scale Used: Numeric (1 - 10) - HEENT Pupil (Motor): EOMI Mallampati: IV Teeth: Edentulous Denture Type: Upper: Complete, Lower: Complete Oral Opening: Greater than 3 - POLE CUTTER LOC: Oriented POLE CUTTER Motor: Normal RUE, Normal LUE, Normal RLE, Normal LLE, Normal Face POLE CUTTER Sensory: Normal: RUE, LUE, Face, Deficit: RLE, LLE - Cardiac Rhythm: Regular Murmur: None - Pulmonary Breath Sounds: bilateral Rhonchi Respiratory Effort: Symmetrical Anesthesia Assess/Plan ASA Score: 4 Modified Hardeep Scale for Level of Consciousness: Cooperative, oriented, and tranquil Anesthetic Plan: MAC Monitoring Plan: Standard Monitors
--- NOTE | 2017-03-15 13:11 | Discharge Summary ---
Date of Encounter: 03/15/17 Time of Encounter: 12:55 - Discharge Diagnosis (1) COPD exacerbation Priority: Primary Status: Acute (2) Anemia Priority: Secondary Status: Acute Qualifiers: Anemia type: unspecified type Qualified Code(s): D64.9 - Anemia, unspecified (3) Pneumonia Priority: Secondary Status: Acute Qualifiers: Pneumonia type: due to unspecified organism Laterality: bilateral Lung location: unspecified part of lung Qualified Code(s): J18.9 - Pneumonia, unspecified organism (4) Dyspnea Priority: Secondary Status: Acute Qualifiers: Dyspnea type: shortness of breath Qualified Code(s): R06.02 - Shortness of breath; R06.00 - Dyspnea, unspecified; R06.01 - Orthopnea (5) Congestive heart failure Priority: Secondary Status: Acute Qualifiers: Congestive heart failure type: diastolic Congestive heart failure chronicity: unspecified congestive heart failure chronicity Qualified Code(s) : I50.30 - Unspecified diastolic (congestive) heart failure (6) Weakness Priority: Secondary Status: Acute (7) Diabetes Priority: Secondary Status: Chronic Qualifiers: Diabetes mellitus type: type 2 Diabetes mellitus complication status: with unspecified complications Diabetes mellitus marine oil terminal superintendent insulin use: unspecified marine oil terminal superintendent insulin use status Qualified Code(s): E11.8 - Type 2 diabetes mellitus with unspecified complications (8) DVT prophylaxis Priority: Secondary Status: Acute - Discharge Medications Prescriptions: Cefdinir [Omnicef] 300 mg PO BID #4 capsule Fluticasone/Vilanterol [Breo Ellipta 100-25 Mcg INH] 1 each IH DAILY #1 blst.w.dev predniSONE [PredniSONE] 40 mg PO DAILY #6 tab Home Medications: Albuterol Sulfate [Albuterol Inhaler] 2 puff IH Q6H PRN 03/11/17 [History] Aspirin [Lo-Dose Aspirin EC] 81 mg PO DAILY 03/11/17 [History] Atorvastatin [Lipitor] 10 mg PO HS 03/11/17 [History] Esomeprazole Magnesium [Nexium] 40 mg PO DAILY 03/11/17 [History] FLUoxetine HCl [Fluoxetine HCl] 10 mg PO DAILY 03/11/17 [History] Furosemide [Lasix] 20 mg PO BID 03/11/17 [History] Lisinopril [Zestril] 5 mg PO DAILY 03/11/17 [History] Magnesium Oxide [Magnesium] 400 mg PO DAILY 03/11/17 [History] Oxybutynin [Ditropan] 5 mg PO DAILY 03/11/17 [History] Potassium Chloride [K-Tab ER] 10 meq PO DAILY 03/11/17 [History] metFORMIN [Glucophage] 850 mg PO BIDWM 03/11/17 [History] Cefdinir [Omnicef] 300 mg PO BID #4 capsule 03/15/17 [Rx] Fluticasone/Vilanterol [Breo Ellipta 100-25 Mcg INH] 1 each IH DAILY #1 blst.w.dev 03/15/17 [Rx] predniSONE [PredniSONE] 40 mg PO DAILY #6 tab 03/15/17 [Rx] Allergies/Adverse Reactions: 3 Allergy/AdvReac Type Severity Reaction Status Date / Time Penicillins Allergy Anaphylaxis Verified 03/10/17 15:33 Date of admission: 03/11/17 18:11 Primary care physician: PCP NONE Consults: 03/12/17 08:37 Consult to Gastroenterology [CONS] Routine Consulting Provider: G[facility]enter[facility] Reason for Consult: drop in Hg, possible Gi bleed. Call Completed: Yes - Patient Status Disposition: Home Health Service Condition: Fair Functional capacity at discharge: uses cane/walker Overall status at discharge: patient is progressing back to baseline - Discharge Instructions Instructions: Anemia (GEN) Follow Up With: [facility] Physician Referral Line [Outside] - 03/22/17 4:00 pm (your Physician is ) Additional Instructions: finish antibiotic course continue with home health services please follow up with primary care doctor within one week of discharge return to emergency department if you develop fever, chills, chest pain, shortness of breath. - Diet and Activity Activity: as per physical therapy Diet: diabetic diet, low fat, low cholesterol Hospital course: Ms. Guillen is a 76 year old female finish antibiotic course continue with home health services please follow up with primary care doctor within one week of discharge return to emergency department if you develop fever, chills, chest pain, shortness of breath. - Time Spent with Patient Total time spent providing and/or coordinating discharge services: - Constitutional Vitals: Temp Pulse Resp BP Pulse Ox 97.9 F 83 18 125/73 95 03/15/17 11:13 03/15/17 11:13 03/15/17 11:24 03/15/17 11:13 03/15/17 11:24 General appearance: Present: cooperative, A&O X 3, pleasant, obese, answers questions appropriately - VTE Documentation of Mechanical Device: Intermittent pneumatic compression device
--- NOTE | 2017-03-15 13:22 | Physician Discharge Referral ---
Home Health/Hosp Referral Info Transfer to: Home Health Provider in Charge Post Discharge: PCP - Diagnosis (1) COPD exacerbation Priority: Primary Status: Acute (2) Anemia Priority: Secondary Status: Acute (3) Pneumonia Priority: Secondary Status: Acute (4) Dyspnea Priority: Secondary Status: Acute (5) Congestive heart failure Priority: Secondary Status: Acute (6) Weakness Priority: Secondary Status: Acute (7) Diabetes Priority: Secondary Status: Chronic (8) DVT prophylaxis Priority: Secondary Status: Acute - Respiratory Orders Smoking Cessation: Smoking cessation has been advised. For more information, call the [place] [employer] Quit Line at [phone]. - Activity Activity Orders: Ambulate - Services Needed Following services are medically necessary services: Nursing, Home Health Aide, Physical Therapy, Occupational Therapy - Transfer Medications Prescriptions: Cefdinir [Omnicef] 300 mg PO BID #4 capsule Fluticasone/Vilanterol [Breo Ellipta 100-25 Mcg INH] 1 each IH DAILY #1 blst.w.dev predniSONE [PredniSONE] 40 mg PO DAILY #6 tab Home Medications: Albuterol Sulfate [Albuterol Inhaler] 2 puff IH Q6H PRN 03/11/17 [History] Aspirin [Lo-Dose Aspirin EC] 81 mg PO DAILY 03/11/17 [History] Atorvastatin [Lipitor] 10 mg PO HS 03/11/17 [History] Esomeprazole Magnesium [Nexium] 40 mg PO DAILY 03/11/17 [History] FLUoxetine HCl [Fluoxetine HCl] 10 mg PO DAILY 03/11/17 [History] Furosemide [Lasix] 20 mg PO BID 03/11/17 [History] Lisinopril [Zestril] 5 mg PO DAILY 03/11/17 [History] Magnesium Oxide [Magnesium] 400 mg PO DAILY 03/11/17 [History] Oxybutynin [Ditropan] 5 mg PO DAILY 03/11/17 [History] Potassium Chloride [K-Tab ER] 10 meq PO DAILY 03/11/17 [History] metFORMIN [Glucophage] 850 mg PO BIDWM 03/11/17 [History] Cefdinir [Omnicef] 300 mg PO BID #4 capsule 03/15/17 [Rx] Fluticasone/Vilanterol [Breo Ellipta 100-25 Mcg INH] 1 each IH DAILY #1 blst.w.dev 03/15/17 [Rx] predniSONE [PredniSONE] 40 mg PO DAILY #6 tab 03/15/17 [Rx] Allergies/Adverse Reactions: 3 Allergy/AdvReac Type Severity Reaction Status Date / Time Penicillins Allergy Anaphylaxis Verified 03/10/17 15:33 Certification: Further, I certify that my clinical findings support that this patient is homebound (i.e. absences from home require considerable and taxing effort and are for medical reasons or gnosticism services or infrequently or short duration when for other reasons) because: Homebound Reason: Patient requires assistance of a person or device to safely leave home Attestation: My signature below is to certify that this patient is under my care and that I, or nurse practitioner, or a physician's recovery assistant working with me, has a face-to -face encounter with this patient.
[2017-03-15] MEDS ORDERED: Lidocaine -MPF 2% 5 ML VIAL INFILT ONE (13:23)
[2017-03-15] MEDS ORDERED: *HR* Propofol 500 MG/50 ML BOTTLE IVC ONE (13:23)
[2017-03-15] MEDS ORDERED: Tetracaine/Benzocaine/Butamben 200MG/SPRAY (100SPY/BOT) MM ONE (14:05)
[2017-03-15] MEDS ORDERED: Simethicone 40 MG/0.6 ML MLS IR ONE (14:05)
--- NOTE | 2017-03-15 15:58 | General Surgery Consult Note ---
<Tasha Stack - Last Filed: 03/15/17 15:51> Date of Encounter: 03/15/17 Time of Encounter: 15:45 Assessment and Plan (1) Colonic mass Current Visit: Yes Status: Acute Obtain CT of abdomen/pelvis with IV and oral contrast today CEA level to be drawn in the am Will give clear liquids after CT complete Will likely need resection of colonic mass- await work-up to determine timing of surgery (may consider as outpatient if patient not obstructed) Supportive care Will continue to follow for recommendations (2) Anemia Current Visit: Yes Status: Acute EGD/Colonoscopy today with Dr. Mensah Large mass noted in the ascending colon Qualifiers: Anemia type: unspecified type Qualified Code(s): D64.9 - Anemia, unspecified (3) Pneumonia Current Visit: Yes Status: Acute Management per medicine service On Rocephin Qualifiers: Pneumonia type: due to unspecified organism Laterality: bilateral Lung location: unspecified part of lung Qualified Code(s): J18.9 - Pneumonia, unspecified organism (4) MOO on CPAP Current Visit: Yes Status: Chronic History of Present Illness Consult date: 03/15/17 Reason for consult: other (Colonic mass) Requesting physician: Dori Mensah History of present illness: Ms. Guillen is a 76 year old female who presented to the hospital with complaints of weakness and increasing shortness of breath. She states that she has been hospitalized on multiple occasions since November of this year. She states that she has recently been treated for a pneumonia in [facility] in [place]. She was discharged with oral antibiotics but states that she had not started these medications on arrival to the emergency department. She was admitted for treatment of an ongoing pneumonia. During her work up she was noted to be anemic. She admits to diarrhea which has been intermittent for "a long time". Denies any constipation. She denies any melena or hematochezia. She does admit to occasional bleeding from her hemorrhoids. She admits to central abdominal discomfort without any radiating factors. Denies any aggravating or alleviating factors. Denies any nausea or vomiting. She does admit to weight loss but states this is related to her recent illnesses over the past few months. She did undergo a colonoscopy with Dr. Mensah today which revealed a large polyp/mass in the ascending colon. We have been asked to see and evaluate the patient for further treatment recommendations. Past Med Surg Social Fam HX - Past Medical History Source: patient Medical history: cancer (Lung - resolved), CHF, COPD, other Psychiatric history: no psych history - Past Surgical History Surgical History: hysterectomy, other (EGD/Colonoscopy 01/13/17) - Social History Smoking Status: Former smoker Packs per day: 1-1.5 PPD - reports quitting 4-5 months ago Smokeless Tobacco Status: No Alcohol use: none Drug use: none Occupational status: disabled - Family History Mother Race: Family Member Ethnicity: Non- Living Status: Age at : 73 Cause of : Stroke Hx Family Cardiac Disorders: Yes (HTN) Hx Family Respiratory Disorders: No Hx Family Cancer: No Hx Family GI Disorders: No Hx Family Genitourinary Disorders: No Hx Family Endocrine Disorder: Yes (DM) Hx Family Musculoskeletal Disorders: No Hx Family Neuromuscular Disorders: No Hx Family Neurologic Disorders: No Hx Family HEENT Disorders: No Hx Family Autoimmune Disorders: No Hx Family Reproductive Disorders: No Hx Family Psychosocial Disorders: No Hx Family Medical Disorders: No Father Race: Family Member Ethnicity: Non- Living Status: Age at : 73 Cause of : Cancer Hx Family Cancer: Yes (Unknown) Sister Race: Family Member Ethnicity: Non- Living Status: Age at : 60 Cause of : Lung cancer Hx Family Cancer: Yes (Lung) Medications and Allergies Albuterol Sulfate [Albuterol Inhaler] 2 puff IH Q6H PRN 03/11/17 [History] Aspirin [Lo-Dose Aspirin EC] 81 mg PO DAILY 03/11/17 [History] Atorvastatin [Lipitor] 10 mg PO HS 03/11/17 [History] Esomeprazole Magnesium [Nexium] 40 mg PO DAILY 03/11/17 [History] FLUoxetine HCl [Fluoxetine HCl] 10 mg PO DAILY 03/11/17 [History] Furosemide [Lasix] 20 mg PO BID 03/11/17 [History] Lisinopril [Zestril] 5 mg PO DAILY 03/11/17 [History] Magnesium Oxide [Magnesium] 400 mg PO DAILY 03/11/17 [History] Oxybutynin [Ditropan] 5 mg PO DAILY 03/11/17 [History] Potassium Chloride [K-Tab ER] 10 meq PO DAILY 03/11/17 [History] metFORMIN [Glucophage] 850 mg PO BIDWM 03/11/17 [History] Cefdinir [Omnicef] 300 mg PO BID #4 capsule 03/15/17 [Rx] Fluticasone/Vilanterol [Breo Ellipta 100-25 Mcg INH] 1 each IH DAILY #1 blst.w.dev 03/15/17 [Rx] predniSONE [PredniSONE] 40 mg PO DAILY #6 tab 03/15/17 [Rx] 3 Allergy/AdvReac Type Severity Reaction Status Date / Time Penicillins Allergy Anaphylaxis Verified 03/10/17 15:33 Review of Systems All systems PM: reviewed and no additional remarkable complaints except as stated (in the HPI) All systems PM: A 10-system review of systems was performed and is negative for pertinent findings except as documented above in the HPI. General Surgery Exam Initial Vital Signs Temp Pulse Resp BP Pulse Ox 98.9 F 98 22 148/57 79 03/10/17 15:34 03/10/17 15:34 03/10/17 15:34 03/10/17 15:34 03/10/17 15:34 - General physical appearance well developed, well nourished, no distress, chronically ill, obese - Eyes normal ocular movement - ENT normal mucosa, atraumatic, normocephalic - Neck trachea midline - Respiratory other (mild conversational dyspnea) wheezing: bilateral - Cardiovascular Cardiovascular exam: Present: RRR - Abdomen Abdomen general surgery: Present: bowel sounds present, soft, non tender - Integumentary Integumentary general surgery: Present: warm and dry - Neurologic Present: CN 2-12 grossly intact - Psychiatric Psychiatric general surgery: Present: A&Ox3 Exam Initial Vital Signs Temp Pulse Resp BP Pulse Ox 98.9 F 98 22 148/57 79 03/10/17 15:34 03/10/17 15:34 03/10/17 15:34 03/10/17 15:34 03/10/17 15:34 Results - Labs 03/15/17 03:25 03/15/17 03:25 Abnormal lab results Hgb 9.6 g/dL (11.5-15.4) L 03/15/17 03:25 Hct 32.8 % (35.3-44.9) L 03/15/17 03:25 MCH 24.8 pg (28.0-33.3) L 03/15/17 03:25 MCHC 29.3 g/dL (31.6-35.5) L 03/15/17 03:25 RDW 17.1 % (11.5-14.5) H 03/15/17 03:25 Nucleated RBCs/100 WBC 0.2 /100 WBC (0) H 03/12/17 18:51 Hypochromasia Present (Not Present) A 03/14/17 04:22 Anisocytosis 1+ (Not Present) A 03/14/17 04:22 Microcytosis Present (Not Present) A 03/14/17 04:22 APTT 25.4 Seconds (26.0-36.0) L 03/11/17 05:53 ABG pCO2 59 mmHg (35-45) H 03/11/17 03:42 ABG pO2 69 mmHg (85-104) L 03/11/17 03:42 ABG HCO3 39.2 mEQ/L (21-27) H 03/11/17 03:42 ABG Total CO2 41.0 mEq/L (20-26) H 03/11/17 03:42 ABG O2 Saturation 94 % (95-98) L 03/11/17 03:42 ABG Base Excess 13.2 mEq/L (-2.0 to 3.0) H 03/11/17 03:42 Carbon Dioxide 35 mEq/L (19-29) H 03/15/17 03:25 Glucose 122 mg/dL (70-99) H 03/15/17 03:25 POC Glucose 120 (58-89) H 03/15/17 07:29 Hemoglobin A1c 7.1 % (-5.6) H 03/11/17 05:53 Iron 27 mcg/dL (50-170) L 03/12/17 05:19 % Saturation 8 % (15-50) L 03/12/17 05:19 B-Natriuretic Peptide 257 pg/mL (0-100) H 03/10/17 16:39 Albumin 3.4 g/dL (3.5-5.0) L 03/15/17 03:25 Stool Occult Blood Positive (Negative) A 03/11/17 17:49 Diabetes panel 03/15/17 Range/Units 03:25 Sodium 141 (136-145) mEq/L Potassium 3.7 (3.5-4.5) mEq/L Chloride 98 (98-109) mEq/L Carbon Dioxide 35 H (19-29) mEq/L BUN 13 (7-20) mg/dL Creatinine 0.73 (0.57-1.11) mg/dL Glucose 122 H (70-99) mg/dL Calcium 9.3 (8.6-10.8) mg/dL AST 11 (5-34) Units/L ALT 14 (0-55) Units/L Alkaline Phosphatase 56 (38-126) Units/L Albumin 3.4 L (3.5-5.0) g/dL Calcium panel 03/15/17 Range/Units 03:25 Calcium 9.3 (8.6-10.8) mg/dL Albumin 3.4 L (3.5-5.0) g/dL Pituitary panel 03/15/17 Range/Units 03:25 Sodium 141 (136-145) mEq/L Potassium 3.7 (3.5-4.5) mEq/L Chloride 98 (98-109) mEq/L Carbon Dioxide 35 H (19-29) mEq/L BUN 13 (7-20) mg/dL Creatinine 0.73 (0.57-1.11) mg/dL Glucose 122 H (70-99) mg/dL Calcium 9.3 (8.6-10.8) mg/dL Adrenal panel 03/15/17 Range/Units 03:25 Sodium 141 (136-145) mEq/L Potassium 3.7 (3.5-4.5) mEq/L Chloride 98 (98-109) mEq/L Carbon Dioxide 35 H (19-29) mEq/L BUN 13 (7-20) mg/dL Creatinine 0.73 (0.57-1.11) mg/dL Glucose 122 H (70-99) mg/dL Calcium 9.3 (8.6-10.8) mg/dL Total Bilirubin 0.5 (0.2-1.2) mg/dL AST 11 (5-34) Units/L ALT 14 (0-55) Units/L Alkaline Phosphatase 56 (38-126) Units/L Albumin 3.4 L (3.5-5.0) g/dL All other labs normal. - Imaging CT scan - abdomen: report reviewed CT scan - pelvis: report reviewed Additional studies: Chest X-Ray 03/10/17 15:43 IMPRESSION: 1. Reticular opacities throughout the lungs are favored to represent chronic lung changes superimposed on COPD; however, no prior studies are available to assess chronicity. Differential considerations include mild interstitial edema or atypical infection. 2. No focal consolidation or pleural effusion. D/ / 03/10/2017 16:24:01 Marcia Cole MD / audrey Interpreting Provider: Marcia Cole MD Consult Discharge Plan - Plan Instructions: Anemia (GEN) Additional Instructions: finish antibiotic course continue with home health services please follow up with primary care doctor within one week of discharge return to emergency department if you develop fever, chills, chest pain, shortness of breath. Referrals: [facility]ician Referral Line [Outside] - 03/22/17 4:00 pm (your Physician is ) Prescriptions: Cefdinir [Omnicef] 300 mg PO BID #4 capsule Fluticasone/Vilanterol [Breo Ellipta 100-25 Mcg INH] 1 each IH DAILY #1 blst.w.dev predniSONE [PredniSONE] 40 mg PO DAILY #6 tab - Attending Attestation For this encounter, I have reviewed the REHABILITATION CASE COORDINATOR or PA documentation, treatment plan, and medical decision making; and I have had face to face time with this patient. <Steve Galarza M - Last Filed: 03/16/17 06:18> Date of Encounter: 03/15/17 Review of Systems All systems PM: A 10-system review of systems was performed and is negative for pertinent findings except as documented above in the HPI. General Surgery Exam Initial Vital Signs Temp Pulse Resp BP Pulse Ox 98.9 F 98 22 148/57 79 03/10/17 15:34 03/10/17 15:34 03/10/17 15:34 03/10/17 15:34 03/10/17 15:34 Exam Initial Vital Signs Temp Pulse Resp BP Pulse Ox 98.9 F 98 22 148/57 79 03/10/17 15:34 03/10/17 15:34 03/10/17 15:34 03/10/17 15:34 03/10/17 15:34 Results - Labs 03/15/17 03:25 03/15/17 03:25 Abnormal lab results Hgb 9.6 g/dL (11.5-15.4) L 03/15/17 03:25 Hct 32.8 % (35.3-44.9) L 03/15/17 03:25 MCH 24.8 pg (28.0-33.3) L 03/15/17 03:25 MCHC 29.3 g/dL (31.6-35.5) L 03/15/17 03:25 RDW 17.1 % (11.5-14.5) H 03/15/17 03:25 Nucleated RBCs/100 WBC 0.2 /100 WBC (0) H 03/12/17 18:51 Hypochromasia Present (Not Present) A 03/14/17 04:22 Anisocytosis 1+ (Not Present) A 03/14/17 04:22 Microcytosis Present (Not Present) A 03/14/17 04:22 APTT 25.4 Seconds (26.0-36.0) L 03/11/17 05:53 ABG pCO2 59 mmHg (35-45) H 03/11/17 03:42 ABG pO2 69 mmHg (85-104) L 03/11/17 03:42 ABG HCO3 39.2 mEQ/L (21-27) H 03/11/17 03:42 ABG Total CO2 41.0 mEq/L (20-26) H 03/11/17 03:42 ABG O2 Saturation 94 % (95-98) L 03/11/17 03:42 ABG Base Excess 13.2 mEq/L (-2.0 to 3.0) H 03/11/17 03:42 Carbon Dioxide 35 mEq/L (19-29) H 03/15/17 03:25 Glucose 122 mg/dL (70-99) H 03/15/17 03:25 POC Glucose 120 (58-89) H 03/15/17 07:29 Hemoglobin A1c 7.1 % (-5.6) H 03/11/17 05:53 Iron 27 mcg/dL (50-170) L 03/12/17 05:19 % Saturation 8 % (15-50) L 03/12/17 05:19 B-Natriuretic Peptide 257 pg/mL (0-100) H 03/10/17 16:39 Albumin 3.4 g/dL (3.5-5.0) L 03/15/17 03:25 Stool Occult Blood Positive (Negative) A 03/11/17 17:49 All other labs normal. - Attending Attestation I reviewed the above assessment and evaluation with the nurse practitioner and agree with the above plan. Patient has any symptoms of nausea or vomiting or obstructive symptoms. She denies any significant blood per rectum but states she does have a history of hemorrhoids. She has had some howard-umbilical pain has been going on "for years" and states her last colonoscopy prior to this was at least 7 years ago or more. Mild pain to palpation in the periumbilical area and bilateral lower quadrants. No masses palpated. I personally reviewed the endoscopy images showing a wide base large polyp in the ascending colon. Biopsy results pending. I agree with CT scan of the abdomen and pelvis and a CEA level as a background. Due to her significant COPD I will likely consult pulmonary as well. Patient states she has been seen at [facility] but is actually looking to transfer her care down to [place].
--- NOTE | 2017-03-15 16:25 | Internal Med Progress Note ---
<Jordan Esquivel - Last Filed: 03/15/17 16:22> Date of Encounter: 03/15/17 Time of Encounter: 16:22 - Assessment and plan (1) Anemia Current Visit: Yes Status: Acute Assessment and plan: note drop in Hg from admission from 10 to 8.2 low iron, ferritin normal. stool guiac positive- consult to GI s/p EGD/colonoscopy. EGD unremarkable. 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 Plan: appreciate surgery recs. CT A/P with IV and oral contrast today. CEA drawn in AM and clear liquid diet after CT. needs resection of mass, may be done outpatient depending on what CT showed. 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 please see social work note. she refuses sleep study as well. CXR showed reticular opacities throughout the lungs, possible mild interstitial edema or atypical infection, no obvious focal consolidation. legionella, strep pneumo antigen negative sputum culture positive for providencia stuartii. Plan: continue ceftriaxone. has completed azithromycin course. d/c home on total of 7 days of antibiotics. scheduled DuoNebs steroids continue CPAP continue home dose of lasix. (3) Dyspnea Current Visit: Yes Status: Acute Assessment and plan: plan as #1 above. Qualifiers: Dyspnea type: shortness of breath Qualified Code(s): R06.02 - Shortness of breath; R06.00 - Dyspnea, unspecified; R06.01 - Orthopnea (4) Congestive heart failure Current Visit: Yes Status: Acute Assessment and plan: repeat echo showed LVEF 65%, mild concentric LVH, moderate LV diastolic dysfunction, normal RV size and fucntion, mildly dilated left atrium, mildly dilated right atrium, moderate mitral annular calcification, mild to moderate mitral stenosis, severe pulmonary HTN, RVSP 66. pulm HTN and non compliance with CPAP likely mainly contributing to her dyspnea. Qualifiers: Congestive heart failure type: diastolic Congestive heart failure chronicity: unspecified congestive heart failure chronicity Qualified Code(s) : I50.30 - Unspecified diastolic (congestive) heart failure (5) Weakness Current Visit: Yes Status: Acute Assessment and plan: consult to PT/OT they recommended home health at discharge. (6) Diabetes Current Visit: Yes Status: Chronic Assessment and plan: hold metformin. low dose SSI with ACHS accuchecks. Qualifiers: Diabetes mellitus type: type 2 Diabetes mellitus complication status: with unspecified complications Diabetes mellitus shelter insulin use: unspecified shelter insulin use status Qualified Code(s): E11.8 - Type 2 diabetes mellitus with unspecified complications (7) DVT prophylaxis Current Visit: Yes Status: Acute Assessment and plan: EPCDs - Subjective Interval history: 76 year old female evaluated at bedside. s/p EGD/colonoscopy today. no new complaints. - Constitutional Vitals: Temp Pulse Resp BP Pulse Ox 97.8 F 87 20 131/67 94 03/15/17 14:59 03/15/17 14:59 03/15/17 15:58 03/15/17 14:59 03/15/17 15:58 General appearance: Present: cooperative, A&O X 3, obese, answers questions appropriately - Head Head exam: Present: atraumatic, normocephalic - Neck Neck exam general surgery: Present: supple, trachea midline - Respiratory Respiratory exam: Present: decreased breath sounds - Cardiovascular Cardiovascular exam: Present: RRR, +S1, +S2 - GI/Abdominal GI/Abdominal exam: Present: normal bowel sounds, soft. Absent: distended, tenderness - Extremities Exam Extremities exam: Absent: cyanotic, pedal edema - Neurological Exam Neurological exam: Present: alert, oriented X3, no focal deficits - Psychiatric Psychiatric exam: Present: normal affect, normal mood Internal Medicine: Result - Labs CBC & Chem 7: 03/15/17 03:25 03/15/17 03:25 Labs: Short CBC 03/15/17 Range/Units 03:25 WBC 10.4 (4.3-11.1) K/mcL Hgb 9.6 L (11.5-15.4) g/dL Hct 32.8 L (35.3-44.9) % Plt Count 354 (140-400) K/mcL Neutrophils # 6.5 (1.6-8.9) K/mcL BMP 03/15/17 03:25 Sodium 141 Potassium 3.7 Chloride 98 Carbon Dioxide 35 H BUN 13 Creatinine 0.73 Glucose 122 H Calcium 9.3 Liver Function 03/15/17 Range/Units 03:25 Total Bilirubin 0.5 (0.2-1.2) mg/dL AST 11 (5-34) Units/L ALT 14 (0-55) Units/L Alkaline Phosphatase 56 (38-126) Units/L Albumin 3.4 L (3.5-5.0) g/dL - ABG Interpretation ABG results: ABG ABG pH 7.43 pH Units (7.32-7.45) 03/11/17 03:42 ABG pCO2 59 mmHg (35-45) H 03/11/17 03:42 ABG pO2 69 mmHg (85-104) L 03/11/17 03:42 ABG O2 Saturation 94 % (95-98) L 03/11/17 03:42 PT/INR, D-dimer PT 11.8 Seconds (9.4-12.1) 03/11/17 05:53 - VTE Documentation of Mechanical Device: Intermittent pneumatic compression device Consult Discharge Plan - Plan Instructions: Anemia (GEN) Additional Instructions: finish antibiotic course continue with home health services please follow up with primary care doctor within one week of discharge return to emergency department if you develop fever, chills, chest pain, shortness of breath. Referrals: [facility] [Outside] - 03/22/17 4:00 pm (your Physician is ) Prescriptions: Cefdinir [Omnicef] 300 mg PO BID #4 capsule Fluticasone/Vilanterol [Breo Ellipta 100-25 Mcg INH] 1 each IH DAILY #1 blst.w.dev predniSONE [PredniSONE] 40 mg PO DAILY #6 tab <Norm [place] - Last Filed: 03/15/17 16:37> Date of Encounter: 03/15/17 - Assessment and plan (1) Anemia Current Visit: Yes Status: Acute Qualifiers: Anemia type: unspecified type Qualified Code(s): D64.9 - Anemia, unspecified (2) COPD exacerbation Current Visit: Yes Status: Acute (3) Congestive heart failure Current Visit: Yes Status: Acute Qualifiers: Congestive heart failure type: diastolic Congestive heart failure chronicity: unspecified congestive heart failure chronicity Qualified Code(s) : I50.30 - Unspecified diastolic (congestive) heart failure (4) Diabetes Current Visit: Yes Status: Chronic Qualifiers: Diabetes mellitus type: type 2 Diabetes mellitus complication status: with unspecified complications Diabetes mellitus shelter insulin use: unspecified bed bug exterminator insulin use status Qualified Code(s): E11.8 - Type 2 diabetes mellitus with unspecified complications (5) DVT prophylaxis Current Visit: Yes Status: Acute - Constitutional Vitals: Temp Pulse Resp BP Pulse Ox 97.8 F 87 20 131/67 94 03/15/17 14:59 03/15/17 14:59 03/15/17 15:58 03/15/17 14:59 03/15/17 15:58 Internal Medicine: Result - Labs CBC & Chem 7: 03/15/17 03:25 03/15/17 03:25 Labs: Short CBC 03/15/17 Range/Units 03:25 WBC 10.4 (4.3-11.1) K/mcL Hgb 9.6 L (11.5-15.4) g/dL Hct 32.8 L (35.3-44.9) % Plt Count 354 (140-400) K/mcL Neutrophils # 6.5 (1.6-8.9) K/mcL BMP 03/15/17 03:25 Sodium 141 Potassium 3.7 Chloride 98 Carbon Dioxide 35 H BUN 13 Creatinine 0.73 Glucose 122 H Calcium 9.3 Liver Function 03/15/17 Range/Units 03:25 Total Bilirubin 0.5 (0.2-1.2) mg/dL AST 11 (5-34) Units/L ALT 14 (0-55) Units/L Alkaline Phosphatase 56 (38-126) Units/L Albumin 3.4 L (3.5-5.0) g/dL - ABG Interpretation ABG results: ABG ABG pH 7.43 pH Units (7.32-7.45) 03/11/17 03:42 ABG pCO2 59 mmHg (35-45) H 03/11/17 03:42 ABG pO2 69 mmHg (85-104) L 03/11/17 03:42 ABG O2 Saturation 94 % (95-98) L 03/11/17 03:42 PT/INR, D-dimer PT 11.8 Seconds (9.4-12.1) 03/11/17 05:53 - Attending Attestation I examined this patient and my medical decision-making was reviewed with the Resident Physician. I agree with the documented findings, disposition and treatment plan as described except to the extent set forth below. Surgical recommendation appreciated.
[2017-03-16] MEDS: Ipratropium/Albuterol Neb 3 ML IH SCH ×7 (00:23→23:17)
[2017-03-16] MEDS: predniSONE 20 MG TABLET PO SCH (07:39)
[2017-03-16] MEDS: Furosemide 20 MG TABLET PO SCH ×2 (07:39→16:19)
[2017-03-16] MEDS: Insulin LISPRO 300 UNITS/3 ML VIAL SQ SCH ×4 (07:39→21:20)
[2017-03-16 07:46] LABS: Basophils % 0.2 %; Eosinophils # 0.2 K/mcL (0.0-0.6); Hematocrit 31.9 % (35.3-44.9); Hemoglobin 9.5 g/dL (11.5-15.4); Immature Granulocytes % 0.9 % (0-4); Lymphocytes # 2.9 K/mcL (0.6-4.6); Lymphocytes % 30.6 %; Mean Corpuscular HGB Conc 29.8 g/dL (31.6-35.5); Mean Corpuscular Hemoglobin 24.8 pg (28.0-33.3); Mean Corpuscular Volume 83.3 fL (83.0-100.0); Mean Platelet Volume 11.2 fL (9.4-12.4); Monocytes # 0.8 K/mcL (0.0-1.3); Monocytes % 8.3 %; Neutrophils # 5.5 K/mcL (1.6-8.9); Platelet Count 293 K/mcL (140-400); Red Blood Count 3.83 M/mcL (3.82-4.97); Red Cell Distribution Width 17.3 % (11.5-14.5)
[2017-03-16 08:49] LABS: Alanine Aminotransferase 15 Units/L (0-55); Albumin 3.1 g/dL (3.5-5.0); Albumin/Globulin Ratio 1.1 (1.1-2.2); Alkaline Phosphatase 51 Units/L (38-126); Aspartate Amino Transferase 18 Units/L (5-34); BUN/Creatinine Ratio 16 (6-26); Bilirubin,Total 0.5 mg/dL (0.2-1.2); Blood Urea Nitrogen 13 mg/dL (7-20); Calcium 9.1 mg/dL (8.6-10.8); Carbon Dioxide 27 mEq/L (19-29); Chloride 101 mEq/L (98-109); Globulin 2.8 g/dL (2.4-3.5); Glucose 95 mg/dL (70-99); Osmolality,Calculated 286 (280-300); Potassium 3.7 mEq/L (3.5-4.5); Sodium 138 mEq/L (136-145); Total Protein 5.9 g/dL (6.0-8.3); eGFR For African Americans > 60 (> 60); eGFR For Non-African Americans > 60 (> 60)
--- NOTE | 2017-03-16 08:52 | Pulmonology Consult Note ---
Date of Encounter: 03/16/17 Time of Encounter: 08:51 Past Med Surg Social Fam HX - Past Medical History Medical history: cancer (Lung - resolved), CHF, COPD, other Psychiatric history: no psych history - Past Surgical History Surgical History: hysterectomy, other (EGD/Colonoscopy 01/13/17) - Social History Smoking Status: Former smoker Packs per day: 1-1.5 PPD - reports quitting 4-5 months ago Smokeless Tobacco Status: No Alcohol use: none Drug use: none - Family History Mother Race: Family Member Ethnicity: Non- Living Status: Age at : 73 Cause of : Stroke Hx Family Cardiac Disorders: Yes (HTN) Hx Family Respiratory Disorders: No Hx Family Cancer: No Hx Family GI Disorders: No Hx Family Genitourinary Disorders: No Hx Family Endocrine Disorder: Yes (DM) Hx Family Musculoskeletal Disorders: No Hx Family Neuromuscular Disorders: No Hx Family Neurologic Disorders: No Hx Family HEENT Disorders: No Hx Family Autoimmune Disorders: No Hx Family Reproductive Disorders: No Hx Family Psychosocial Disorders: No Hx Family Medical Disorders: No Father Race: Family Member Ethnicity: Non- Living Status: Age at : 73 Cause of : Cancer Hx Family Cancer: Yes (Unknown) Sister Race: Family Member Ethnicity: Non- Living Status: Age at : 60 Cause of : Lung cancer Hx Family Cancer: Yes (Lung) Medications and Allergies Albuterol Sulfate [Albuterol Inhaler] 2 puff IH Q6H PRN 03/11/17 [History] Aspirin [Lo-Dose Aspirin EC] 81 mg PO DAILY 03/11/17 [History] Atorvastatin [Lipitor] 10 mg PO HS 03/11/17 [History] Esomeprazole Magnesium [Nexium] 40 mg PO DAILY 03/11/17 [History] FLUoxetine HCl [Fluoxetine HCl] 10 mg PO DAILY 03/11/17 [History] Furosemide [Lasix] 20 mg PO BID 03/11/17 [History] Lisinopril [Zestril] 5 mg PO DAILY 03/11/17 [History] Magnesium Oxide [Magnesium] 400 mg PO DAILY 03/11/17 [History] Oxybutynin [Ditropan] 5 mg PO DAILY 03/11/17 [History] Potassium Chloride [K-Tab ER] 10 meq PO DAILY 03/11/17 [History] metFORMIN [Glucophage] 850 mg PO BIDWM 03/11/17 [History] Cefdinir [Omnicef] 300 mg PO BID #4 capsule 03/15/17 [Rx] Fluticasone/Vilanterol [Breo Ellipta 100-25 Mcg INH] 1 each IH DAILY #1 blst.w.dev 03/15/17 [Rx] predniSONE [PredniSONE] 40 mg PO DAILY #6 tab 03/15/17 [Rx] 3 Allergy/AdvReac Type Severity Reaction Status Date / Time Penicillins Allergy Anaphylaxis Verified 03/10/17 15:33 All Systems: A 10-system review of systems was performed and is negative for pertinent findings except as documented above in the HPI. Physical Examination Vital Signs: Vital Signs, Last 4 Hours Temp Pulse Resp BP Pulse Ox 03/16/17 07:10 97.7 F 80 18 122/58 94 Results - Laboratory Findings CBC and BMP: 03/16/17 06:51 03/15/17 03:25 ABG ABG pH 7.43 pH Units (7.32-7.45) 03/11/17 03:42 ABG pCO2 59 mmHg (35-45) H 03/11/17 03:42 ABG pO2 69 mmHg (85-104) L 03/11/17 03:42 ABG O2 Saturation 94 % (95-98) L 03/11/17 03:42 PT/INR, D-dimer PT 11.8 Seconds (9.4-12.1) 03/11/17 05:53 Abnormal lab findings: Abnormal lab results Hgb 9.5 g/dL (11.5-15.4) L 03/16/17 06:51 Hct 31.9 % (35.3-44.9) L 03/16/17 06:51 MCH 24.8 pg (28.0-33.3) L 03/16/17 06:51 MCHC 29.8 g/dL (31.6-35.5) L 03/16/17 06:51 RDW 17.3 % (11.5-14.5) H 03/16/17 06:51 Nucleated RBCs/100 WBC 0.2 /100 WBC (0) H 03/12/17 18:51 Hypochromasia Present (Not Present) A 03/14/17 04:22 Anisocytosis 1+ (Not Present) A 03/14/17 04:22 Microcytosis Present (Not Present) A 03/14/17 04:22 APTT 25.4 Seconds (26.0-36.0) L 03/11/17 05:53 ABG pCO2 59 mmHg (35-45) H 03/11/17 03:42 ABG pO2 69 mmHg (85-104) L 03/11/17 03:42 ABG HCO3 39.2 mEQ/L (21-27) H 03/11/17 03:42 ABG Total CO2 41.0 mEq/L (20-26) H 03/11/17 03:42 ABG O2 Saturation 94 % (95-98) L 03/11/17 03:42 ABG Base Excess 13.2 mEq/L (-2.0 to 3.0) H 03/11/17 03:42 Carbon Dioxide 35 mEq/L (19-29) H 03/15/17 03:25 Glucose 122 mg/dL (70-99) H 03/15/17 03:25 POC Glucose 120 (58-89) H 03/15/17 07:29 Hemoglobin A1c 7.1 % (-5.6) H 03/11/17 05:53 Iron 27 mcg/dL (50-170) L 03/12/17 05:19 % Saturation 8 % (15-50) L 03/12/17 05:19 B-Natriuretic Peptide 257 pg/mL (0-100) H 03/10/17 16:39 Albumin 3.4 g/dL (3.5-5.0) L 03/15/17 03:25 Stool Occult Blood Positive (Negative) A 03/11/17 17:49 - Clinical Findings Intake & Output: Intake & Output 03/15/17 03/16/17 03/16/17 23:59 07:59 15:59 Intake Total 720 / 720 60 / 60 480 / 480 Balance 720 / 720 60 / 60 480 / 480 Consult Discharge Plan - Plan Instructions: Anemia (GEN) Additional Instructions: finish antibiotic course continue with home health services please follow up with primary care doctor within one week of discharge return to emergency department if you develop fever, chills, chest pain, shortness of breath. Referrals: [facility] [Outside] - 03/22/17 4:00 pm (your Physician is ) Prescriptions: Cefdinir [Omnicef] 300 mg PO BID #4 capsule Fluticasone/Vilanterol [Breo Ellipta 100-25 Mcg INH] 1 each IH DAILY #1 blst.w.dev predniSONE [PredniSONE] 40 mg PO DAILY #6 tab
--- NOTE | 2017-03-16 08:56 | Pulmonology Consult Note ---
Date of Encounter: 03/16/17 Time of Encounter: 08:54 Assessment and Plan (1) Encounter for preoperative pulmonary examination Current Visit: Yes Status: Acute Preoperative Pulmonary Risk Assessment and Optimization Operation Directly Involves the Diaphgram: Yes Procedure Related Risk: Medium Overall Risk of Patient:: High Post-operative complications including but not limited to pneumonia, respiratory failure requiring ventilation, and prolonged intubation requiring hospitalization. Specific Perioperative Recommendations: Patient rebalanced the highest risk of postoperative pulmonary complications giving underlying history of chronic respiratory failure COPD debilitation low albumin likely obstructive sleep apnea. Additionally her acute risk factors are increased because of active COPD exacerbation likely related to pneumonia. I spoke to the general surgeon and I believe this patient is at undue risk to proceed with this procedure at this time without additional optimization I believe over the next week with treatment for COPD exacerbation and optimization of respiratory status that she could have a better chance of limiting postoperative risk. I have also put in a request for outpatient hospital records related to her underlying respiratory status General Perioperative Pulmonary Recommendations: 1. Delay or cancel planned surgery for acute respiratory infection or exacerbation of pulmonary disease 2. Spinal or epidural anesthesia is favored over general anesthesia for patients who are at high risk for postoperative pulmonary complications 3. Optimize pain control while limiting use of sedatives and judicious use of narcotics. 4. Encourage early ambulation and use of incentive spirometry 5. Administration of bronchodilators 6. VTE prophylaxis including mechanical or chemical prophylaxis as dictated by post operative bleeding risk. 7. Bring PAP therapy device to hospital and use during perioperative period unless contraindicated. (2) Heart failure with preserved ejection fraction Current Visit: Yes Status: Acute Elevated BNP with evidence of dilated left atrium concerning for heart failure with preserved ejection fraction I believe she would also benefit from cardiology evaluation prior to planned procedure. Continue Lasix dosing and heart rate control per primary medicine service or after cardiology evaluation (3) Pulmonary hypertension Current Visit: Yes Status: Acute This is a combination of WHO group 2 disease and WHO group 3 disease. The treatments for both of these are going to be optimization of fluid balance and domination of hypoxemia as able (4) COPD (chronic obstructive pulmonary disease) Current Visit: Yes Status: Acute Recommend scheduling do a nebs every 6 hours and supplemental albuterol treatments as needed. She will need a steroid taper I would taper over the next 2 weeks starting at 40 mg now. I have advised her to use the Advair discus 250/50 mg dosing 1 puff twice a day every day and make sure that she rinses her mouth after using Qualifiers: COPD type: unspecified COPD Qualified Code(s): J44.9 - Chronic obstructive pulmonary disease, unspecified (5) Pneumonia Current Visit: Yes Status: Acute She has been receiving antimicrobial therapy for this likely can be D escalated to a respiratory fluoroquinolone to complete 7 day course Qualifiers: Pneumonia type: due to unspecified organism Laterality: bilateral Lung location: unspecified part of lung Qualified Code(s): J18.9 - Pneumonia, unspecified organism (6) MOO on CPAP Current Visit: Yes Status: Chronic She will need formal polysomnogram on bilevel positive airway pressure support as an outpatient. She should be qualify for BiPAP for her hypercarbia prior to discharge from the hospital (7) Colonic mass Current Visit: Yes Status: Acute This is concerning for primary colon cancer general surgery and gastroenterology have both evaluated the patient (8) Acute on chronic respiratory failure with hypoxia and hypercapnia Current Visit: Yes Status: Acute This is multifactorial including advanced COPD continue supplemental oxygen 24 hours a day to keep saturation greater than 89%. In addition I would advise qualification for noninvasive ventilation this will require morning ABG off positive airway pressure support which I have ordered. History of Present Illness Consult date: 03/16/17 Requesting physician: Steve Galarza Reason for consult: COPD, obstructive sleep apnea Chief complaint: Shortness of breath. History of present illness: This is a 76-year-old woman with a complex respiratory history including diagnosis of chronic hypoxic hypercarbic respiratory failure and COPD tobacco abuse now in remission she is on 2-3 L home O2 at all times and apparently does use a CPAP machine at home although this was not technically prescribed by her but given to her by a friend. She was admitted for what appears to be pneumonia and possible COPD exacerbation which from that standpoint she has been improving with steroids antimicrobials and bronchodilators however as part of workup of anemia she was found to have an op apple core mass in the ascending colon concerning for malignancy general surgery has evaluated the patient and would like to proceed with resection of this however wanted to have pulmonary evaluation prior to planned surgical procedure. In addition the patient has been treated for primary lung malignancy at least per her report with chemotherapy and radiation but this was greater than 5 years ago Patient says she is chronically short of breath is quite debilitated at baseline and in fact has been living in a senior care facility after she had a what appears to be an extended hospitalization at [facility] for respiratory failure. Since then she has had a couple of admissions to [facility] for COPD exacerbation and this admission here. She uses bronchodilators daily and occasionally uses Advair 250/50. As said she occasionally uses positive airway pressure mask she obtained from a close friend. She does follow with a port warden Dr. Mata in [place] apparently he is also a lot of [facility]. She denies any significant industrial/ environmental exposures. Past Med Surg Social Fam HX - Past Medical History Medical history: cancer (Lung - resolved), CHF, COPD, other Psychiatric history: no psych history - Past Surgical History Surgical History: hysterectomy, other (EGD/Colonoscopy 01/13/17) - Social History Smoking Status: Former smoker Packs per day: 1-1.5 PPD - reports quitting 4-5 months ago Smokeless Tobacco Status: No Alcohol use: none Drug use: none - Family History Mother Race: Family Member Ethnicity: Non- Living Status: Age at : 73 Cause of : Stroke Hx Family Cardiac Disorders: Yes (HTN) Hx Family Respiratory Disorders: No Hx Family Cancer: No Hx Family GI Disorders: No Hx Family Genitourinary Disorders: No Hx Family Endocrine Disorder: Yes (DM) Hx Family Musculoskeletal Disorders: No Hx Family Neuromuscular Disorders: No Hx Family Neurologic Disorders: No Hx Family HEENT Disorders: No Hx Family Autoimmune Disorders: No Hx Family Reproductive Disorders: No Hx Family Psychosocial Disorders: No Hx Family Medical Disorders: No Father Race: Family Member Ethnicity: Non- Living Status: Age at : 73 Cause of : Cancer Hx Family Cancer: Yes (Unknown) Sister Race: Family Member Ethnicity: Non- Living Status: Age at : 60 Cause of : Lung cancer Hx Family Cancer: Yes (Lung) Medications and Allergies Albuterol Sulfate [Albuterol Inhaler] 2 puff IH Q6H PRN 03/11/17 [History] Aspirin [Lo-Dose Aspirin EC] 81 mg PO DAILY 03/11/17 [History] Atorvastatin [Lipitor] 10 mg PO HS 03/11/17 [History] Esomeprazole Magnesium [Nexium] 40 mg PO DAILY 03/11/17 [History] FLUoxetine HCl [Fluoxetine HCl] 10 mg PO DAILY 03/11/17 [History] Furosemide [Lasix] 20 mg PO BID 03/11/17 [History] Lisinopril [Zestril] 5 mg PO DAILY 03/11/17 [History] Magnesium Oxide [Magnesium] 400 mg PO DAILY 03/11/17 [History] Oxybutynin [Ditropan] 5 mg PO DAILY 03/11/17 [History] Potassium Chloride [K-Tab ER] 10 meq PO DAILY 03/11/17 [History] metFORMIN [Glucophage] 850 mg PO BIDWM 03/11/17 [History] Cefdinir [Omnicef] 300 mg PO BID #4 capsule 03/15/17 [Rx] Fluticasone/Vilanterol [Breo Ellipta 100-25 Mcg INH] 1 each IH DAILY #1 blst.w.dev 03/15/17 [Rx] predniSONE [PredniSONE] 40 mg PO DAILY #6 tab 03/15/17 [Rx] 3 Allergy/AdvReac Type Severity Reaction Status Date / Time Penicillins Allergy Anaphylaxis Verified 03/10/17 15:33 All Systems: A 10-system review of systems was performed and is negative for pertinent findings except as documented above in the HPI. Physical Examination Vital Signs: Vital Signs, Last 4 Hours Temp Pulse Resp BP Pulse Ox 03/16/17 07:10 97.7 F 80 18 122/58 94 General appearance: no acute distress Eyes: nonicteric ENT: oropharynx moist Mallampati (class): 4 Effort: mildly labored Auscultation: bilateral: diminished breath sounds, wheezes Cardiovascular: regular rate and rhythm Gastrointestinal: normoactive bowel sounds Integumentary: normal Extremities: no clubbing, edema Results - Laboratory Findings CBC and BMP: 03/16/17 06:51 03/16/17 06:51 ABG ABG pH 7.43 pH Units (7.32-7.45) 03/11/17 03:42 ABG pCO2 59 mmHg (35-45) H 03/11/17 03:42 ABG pO2 69 mmHg (85-104) L 03/11/17 03:42 ABG O2 Saturation 94 % (95-98) L 03/11/17 03:42 PT/INR, D-dimer PT 11.8 Seconds (9.4-12.1) 03/11/17 05:53 Abnormal lab findings: Abnormal lab results Hgb 9.5 g/dL (11.5-15.4) L 03/16/17 06:51 Hct 31.9 % (35.3-44.9) L 03/16/17 06:51 MCH 24.8 pg (28.0-33.3) L 03/16/17 06:51 MCHC 29.8 g/dL (31.6-35.5) L 03/16/17 06:51 RDW 17.3 % (11.5-14.5) H 03/16/17 06:51 Nucleated RBCs/100 WBC 0.2 /100 WBC (0) H 03/12/17 18:51 Hypochromasia Present (Not Present) A 03/14/17 04:22 Anisocytosis 1+ (Not Present) A 03/14/17 04:22 Microcytosis Present (Not Present) A 03/14/17 04:22 APTT 25.4 Seconds (26.0-36.0) L 03/11/17 05:53 ABG pCO2 59 mmHg (35-45) H 03/11/17 03:42 ABG pO2 69 mmHg (85-104) L 03/11/17 03:42 ABG HCO3 39.2 mEQ/L (21-27) H 03/11/17 03:42 ABG Total CO2 41.0 mEq/L (20-26) H 03/11/17 03:42 ABG O2 Saturation 94 % (95-98) L 03/11/17 03:42 ABG Base Excess 13.2 mEq/L (-2.0 to 3.0) H 03/11/17 03:42 Carbon Dioxide 35 mEq/L (19-29) H 03/15/17 03:25 Glucose 122 mg/dL (70-99) H 03/15/17 03:25 POC Glucose 120 (58-89) H 03/15/17 07:29 Hemoglobin A1c 7.1 % (-5.6) H 03/11/17 05:53 Iron 27 mcg/dL (50-170) L 03/12/17 05:19 % Saturation 8 % (15-50) L 03/12/17 05:19 B-Natriuretic Peptide 257 pg/mL (0-100) H 03/10/17 16:39 Albumin 3.4 g/dL (3.5-5.0) L 03/15/17 03:25 Stool Occult Blood Positive (Negative) A 03/11/17 17:49 - Diagnostic Findings Chest x-ray: report reviewed, image reviewed - Clinical Findings Intake & Output: Intake & Output 03/15/17 03/16/17 03/16/17 23:59 07:59 15:59 Intake Total 720 / 720 60 / 60 480 / 480 Balance 720 / 720 60 / 60 480 / 480 Consult Discharge Plan - Plan Instructions: Anemia (GEN) Additional Instructions: finish antibiotic course continue with home health services please follow up with primary care doctor within one week of discharge return to emergency department if you develop fever, chills, chest pain, shortness of breath. Referrals: [facility] [Outside] - 03/22/17 4:00 pm (your Physician is ) Carroll Murillo MD [Partnered Physician] - 03/24/17 8:15 am Prescriptions: Cefdinir [Omnicef] 300 mg PO BID #4 capsule Fluticasone/Vilanterol [Breo Ellipta 100-25 Mcg INH] 1 each IH DAILY #1 blst.w.dev predniSONE [PredniSONE] 40 mg PO DAILY #6 tab
--- NOTE | 2017-03-16 09:41 | Internal Med Progress Note ---
<Sreedhar Dumont - Last Filed: 03/16/17 13:29> Date of Encounter: 03/16/17 Time of Encounter: 09:38 - Assessment and plan (1) Colonic mass Current Visit: Yes Status: Acute Assessment and plan: CT abd/pelv identified a colonic mass. - Surgery following - will resect colonic mass during admission. - continue clear liquids - Supportive clear (2) Dyspnea Current Visit: Yes Status: Acute Assessment and plan: plan as #1 above. Qualifiers: Dyspnea type: shortness of breath Qualified Code(s): R06.02 - Shortness of breath; R06.00 - Dyspnea, unspecified; R06.01 - Orthopnea (3) Anemia Current Visit: Yes Status: Acute Assessment and plan: note drop in Hg from admission from 10 to 8.2 low iron, ferritin normal. stool guiac positive- consult to GI s/p EGD/colonoscopy. EGD unremarkable. 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 Plan: - hgb todayy 9.6. - patient will plan on surgery eval for possible tumor removal - continue to monitor cbc Qualifiers: Anemia type: unspecified type Qualified Code(s): D64.9 - Anemia, unspecified (4) Weakness Current Visit: Yes Status: Acute Assessment and plan: consult to PT/OT they recommended home health at discharge. (5) Diabetes Current Visit: Yes Status: Chronic Assessment and plan: hold metformin. low dose SSI with ACHS accuchecks. Qualifiers: Diabetes mellitus type: type 2 Diabetes mellitus complication status: with unspecified complications Diabetes mellitus terminal carman insulin use: unspecified care home insulin use status Qualified Code(s): E11.8 - Type 2 diabetes mellitus with unspecified complications (6) COPD exacerbation Current Visit: Yes Status: Acute Assessment and plan: likely multifactorial in setting of unresolved prior pneumonia, severe pulmonary HTN (type 3 secondary to COPD), non compliance with CPAP at home secondary to social issues, non compliance with antiboitic use after last hospital discharge. 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 please see social work note. she refuses sleep study as well. CXR showed reticular opacities throughout the lungs, possible mild interstitial edema or atypical infection, no obvious focal consolidation. legionella, strep pneumo antigen negative sputum culture positive for providencia stuartii. Plan: continue ceftriaxone. has completed azithromycin course. d/c home on total of 7 days of antibiotics. scheduled DuoNebs steroids continue CPAP continue home dose of lasix. (7) DVT prophylaxis Current Visit: Yes Status: Acute Assessment and plan: EPCDs - Subjective Interval history: 76 yo F who was originally hospitalized for SOB secondary to anemia and COPD exacerbation, now found to have GI mass found on CT. Patient was sitting up and conversing today. She states she wants to "get out" of here, but understands that she wants to get treatment. Patient reports no events over night. denies n/v/f/c - Constitutional Vitals: Temp Pulse Resp BP Pulse Ox 97.7 F 80 18 122/58 94 03/16/17 07:10 03/16/17 07:10 03/16/17 07:10 03/16/17 07:10 03/16/17 07:10 General appearance: Present: cooperative, A&O X 3, obese, answers questions appropriately - Respiratory Respiratory exam: Present: CTAB. Absent: accessory muscle use, rales, rhonchi, wheezes - Cardiovascular Cardiovascular exam: Present: RRR, +S1, +S2. Absent: diastolic murmur, gallop, rubs, systolic murmur - GI/Abdominal GI/Abdominal exam: Present: normal bowel sounds, soft, no peritoneal signs. Absent: distended, tenderness - Extremities Exam Extremities exam: Present: warm, radial pulses palpable and symmetrical. Absent : calf tenderness, cyanotic, pedal edema Internal Medicine: Result - Labs CBC & Chem 7: 03/16/17 06:51 03/16/17 06:51 Labs: Short CBC 03/16/17 Range/Units 06:51 WBC 9.4 (4.3-11.1) K/mcL Hgb 9.5 L (11.5-15.4) g/dL Hct 31.9 L (35.3-44.9) % Plt Count 293 (140-400) K/mcL Neutrophils # 5.5 (1.6-8.9) K/mcL BMP 03/16/17 06:51 Sodium 138 Potassium 3.7 Chloride 101 Carbon Dioxide 27 BUN 13 Creatinine 0.79 Glucose 95 Calcium 9.1 Liver Function 03/16/17 Range/Units 06:51 Total Bilirubin 0.5 (0.2-1.2) mg/dL AST 18 (5-34) Units/L ALT 15 (0-55) Units/L Alkaline Phosphatase 51 (38-126) Units/L Albumin 3.1 L (3.5-5.0) g/dL - ABG Interpretation ABG results: ABG ABG pH 7.43 pH Units (7.32-7.45) 03/11/17 03:42 ABG pCO2 59 mmHg (35-45) H 03/11/17 03:42 ABG pO2 69 mmHg (85-104) L 03/11/17 03:42 ABG O2 Saturation 94 % (95-98) L 03/11/17 03:42 PT/INR, D-dimer PT 11.8 Seconds (9.4-12.1) 03/11/17 05:53 - Impressions Impressions Abdomen/Pelvis CT 03/15/17 19:00 IMPRESSION: 1. Colonic mass seen in the ascending colon which has the appearance of a malignant neoplasm with an apple core type appearance and shouldering typical malignancy. 2. No evidence of liver metastases or adenopathy. 3. Cholelithiasis but no acute cholecystitis. 4. Fatty infiltration of the liver. 5. Fat containing ventral hernia which appears uncomplicated. D/ / 03/15/2017 19:55:26 Delma Castillo MD / bcarter Interpreting Provider: Delma Castillo MD - VTE Documentation of Mechanical Device: Intermittent pneumatic compression device Consult Discharge Plan - Plan Instructions: Anemia (GEN) Additional Instructions: finish antibiotic course continue with home health services please follow up with primary care doctor within one week of discharge return to emergency department if you develop fever, chills, chest pain, shortness of breath. Referrals: [facility] [Outside] - 03/22/17 4:00 pm (your Physician is ) Carroll Murillo MD [Partnered Physician] - 03/24/17 8:15 am Prescriptions: Cefdinir [Omnicef] 300 mg PO BID #4 capsule Fluticasone/Vilanterol [Breo Ellipta 100-25 Mcg INH] 1 each IH DAILY #1 blst.w.dev predniSONE [PredniSONE] 40 mg PO DAILY #6 tab <MenaNorm P - Last Filed: 03/16/17 18:18> Date of Encounter: 03/16/17 - Assessment and plan (1) Anemia Current Visit: Yes Status: Acute Qualifiers: Anemia type: unspecified type Qualified Code(s): D64.9 - Anemia, unspecified (2) COPD exacerbation Current Visit: Yes Status: Acute (3) Congestive heart failure Current Visit: Yes Status: Acute Qualifiers: Congestive heart failure type: diastolic Congestive heart failure chronicity: unspecified congestive heart failure chronicity Qualified Code(s) : I50.30 - Unspecified diastolic (congestive) heart failure (4) Diabetes Current Visit: Yes Status: Chronic Qualifiers: Diabetes mellitus type: type 2 Diabetes mellitus complication status: with unspecified complications Diabetes mellitus terminal carman insulin use: unspecified terminal carman insulin use status Qualified Code(s): E11.8 - Type 2 diabetes mellitus with unspecified complications (5) DVT prophylaxis Current Visit: Yes Status: Acute - Constitutional Vitals: Temp Pulse Resp BP Pulse Ox 97.5 F L 89 18 139/79 93 03/16/17 15:57 03/16/17 15:57 03/16/17 16:06 03/16/17 15:57 03/16/17 16:06 Internal Medicine: Result - Labs CBC & Chem 7: 03/16/17 06:51 03/16/17 06:51 Labs: Short CBC 03/16/17 Range/Units 06:51 WBC 9.4 (4.3-11.1) K/mcL Hgb 9.5 L (11.5-15.4) g/dL Hct 31.9 L (35.3-44.9) % Plt Count 293 (140-400) K/mcL Neutrophils # 5.5 (1.6-8.9) K/mcL BMP 03/16/17 06:51 Sodium 138 Potassium 3.7 Chloride 101 Carbon Dioxide 27 BUN 13 Creatinine 0.79 Glucose 95 Calcium 9.1 Liver Function 03/16/17 Range/Units 06:51 Total Bilirubin 0.5 (0.2-1.2) mg/dL AST 18 (5-34) Units/L ALT 15 (0-55) Units/L Alkaline Phosphatase 51 (38-126) Units/L Albumin 3.1 L (3.5-5.0) g/dL - ABG Interpretation ABG results: ABG ABG pH 7.43 pH Units (7.32-7.45) 03/11/17 03:42 ABG pCO2 59 mmHg (35-45) H 03/11/17 03:42 ABG pO2 69 mmHg (85-104) L 03/11/17 03:42 ABG O2 Saturation 94 % (95-98) L 03/11/17 03:42 PT/INR, D-dimer PT 11.8 Seconds (9.4-12.1) 03/11/17 05:53 - Impressions Impressions Abdomen/Pelvis CT 03/15/17 19:00 IMPRESSION: 1. Colonic mass seen in the ascending colon which has the appearance of a malignant neoplasm with an apple core type appearance and shouldering typical malignancy. 2. No evidence of liver metastases or adenopathy. 3. Cholelithiasis but no acute cholecystitis. 4. Fatty infiltration of the liver. 5. Fat containing ventral hernia which appears uncomplicated. D/ / 03/15/2017 19:55:26 Delma Castillo MD / [email or web address] Interpreting Provider: Delma Castillo MD - Attending Attestation I examined this patient and my medical decision-making was reviewed with the Resident Physician. I agree with the documented findings, disposition and treatment plan as described except to the extent set forth below.
--- NOTE | 2017-03-16 09:57 | General Surgery Progress Note ---
Addendum entered and electronically signed by Delmy Vaughn CNP 03/16/17 13: 47: Notified per pulmonary consult that patient's pulmonary status would need improved prior to surgical intervention. Cancelled preop bowel prep antibiotics. Original Note: <Delmy Vaughn - Last Filed: 03/16/17 10:32> Date of Encounter: 03/16/17 Time of Encounter: 09:00 - Assessment and Plan (1) Colonic mass Current Visit: Yes Status: Acute CT abdomen/pelvis completed online 03/15/2017: IMPRESSION: 1. Colonic mass seen in the ascending colon which has the appearance of a malignant neoplasm with an apple core type appearance and shouldering typical malignancy. 2. No evidence of liver metastases or adenopathy. 3. Cholelithiasis but no acute cholecystitis. 4. Fatty infiltration of the liver. 5. Fat containing ventral hernia which appears uncomplicated. Will likely need resection of the area this admission. -Consult to pulmonology for optimization of respiratory status prior to surgery -Consult cardiology for preoperative risk stratification in the setting of history at [facility]; spoke with Dr. Gordillo. -Continue Clear Liquids at This Time so As Not to Have the Need for Repeat of Bowel Prep -Continue Supportive Care -Per Patient Request We Did Notify Her Son, Andrew, of the Findings of the CT and the Plan at This Time. He States Understanding. -Preop abx prophylaxis: 1G neomycin and EES 2p,3p, and 10 pm (2) COPD (chronic obstructive pulmonary disease) Current Visit: Yes Status: Acute Patient with chronic home 02 used. Remains wheezy throughout. Pulmonology is consult it, see plan above. We'll continue to monitor Qualifiers: COPD type: unspecified COPD Qualified Code(s): J44.9 - Chronic obstructive pulmonary disease, unspecified (3) Anemia Current Visit: Yes Status: Acute s/p EGD and colonoscopy with Dr. Mensah on 03/15/2107. Noted large mass in the descending colon. Repeat a.m. labs, hemoglobin stable, will continue to monitor. Qualifiers: Anemia type: unspecified type Qualified Code(s): D64.9 - Anemia, unspecified (4) Congestive heart failure Current Visit: Yes Status: Acute No evidence of CHF at this time, although patient continues to have expiratory wheezes. Echo this admission with EF of 65% Will need to closely monitor fluid status. Will continue to monitor Qualifiers: Congestive heart failure type: diastolic Congestive heart failure chronicity: unspecified congestive heart failure chronicity Qualified Code(s) : I50.30 - Unspecified diastolic (congestive) heart failure (5) Pneumonia Current Visit: Yes Status: Acute Management per medicine. Noted ceftriaxone per IV. Will continue to monitor. Qualifiers: Pneumonia type: due to unspecified organism Laterality: bilateral Lung location: unspecified part of lung Qualified Code(s): J18.9 - Pneumonia, unspecified organism (6) DVT prophylaxis Current Visit: Yes Status: Acute Out of bed to chair at least 3 times a day. Ambulate as tolerated. EPCDs while in bed. Start heparin 5000 units subject to twice daily. (7) MOO on CPAP Current Visit: Yes Status: Chronic Management per medicine. CPAP at HS. Will continue to monitor. (8) Pulmonary hypertension Current Visit: Yes Status: Acute Management per medicine. Noted Severe pulmonary HTN per echo this admission. Subjective Patient reports: no new complaints, tolerating liquids well, voiding w/o difficulty, flatus, no bowel movement, shortness of breath (Chronic and unchanged) Objective Vital Signs - Last 8 Hours Temp Pulse Resp BP Pulse Ox 03/16/17 07:10 97.7 F 80 18 122/58 94 03/16/17 04:26 98.0 F 89 21 134/69 95 03/16/17 04:10 96 03/16/17 03:58 16 96 Intake and Output 03/15/17 03/16/17 03/16/17 23:59 07:59 15:59 Intake Total 720 / 720 60 / 60 480 / 480 Balance 720 / 720 60 / 60 480 / 480 Intake: Oral 720 / 720 60 / 60 480 / 480 Other: Meal ICE CREAM,BROTH,COFFEE,KRISTA Breakfast Percent of Meal Consumed 100% # Voids 2 Blood Glucose* 199 114 - General physical appearance well developed, well nourished, no distress, no pain, obese - Eyes normal ocular movement - ENT normal mucosa (O2 via NC noted), atraumatic, normocephalic, Other (Edentulous) - Neck Neck exam: no masses, trachea midline - Respiratory other (Decreased bibasilar; Exp wheezes bilateral upper lobes) - Cardiovascular Cardiovascular exam: Present: RRR, distant heart sounds, no murmurs/rubs/gallops - Abdomen Abdomen: Present: bowel sounds present, soft, non tender Hernia: umbilical (nted at the 11o'clock position.) - Integumentary no rash - Neurologic normal coordination, normal sensation - Musculoskeletal normal posture - Psychiatric oriented to time, oriented to person, oriented to place, speech is normal ( slightly garbled given edentulous), memory intact - Labs 03/16/17 06:51 03/16/17 06:51 Diabetes panel 03/16/17 Range/Units 06:51 Sodium 138 (136-145) mEq/L Potassium 3.7 (3.5-4.5) mEq/L Chloride 101 (98-109) mEq/L Carbon Dioxide 27 (19-29) mEq/L BUN 13 (7-20) mg/dL Creatinine 0.79 (0.57-1.11) mg/dL Glucose 95 (70-99) mg/dL Calcium 9.1 (8.6-10.8) mg/dL AST 18 (5-34) Units/L ALT 15 (0-55) Units/L Alkaline Phosphatase 51 (38-126) Units/L Albumin 3.1 L (3.5-5.0) g/dL Calcium panel 03/16/17 Range/Units 06:51 Calcium 9.1 (8.6-10.8) mg/dL Albumin 3.1 L (3.5-5.0) g/dL Pituitary panel 03/16/17 Range/Units 06:51 Sodium 138 (136-145) mEq/L Potassium 3.7 (3.5-4.5) mEq/L Chloride 101 (98-109) mEq/L Carbon Dioxide 27 (19-29) mEq/L BUN 13 (7-20) mg/dL Creatinine 0.79 (0.57-1.11) mg/dL Glucose 95 (70-99) mg/dL Calcium 9.1 (8.6-10.8) mg/dL Adrenal panel 03/16/17 Range/Units 06:51 Sodium 138 (136-145) mEq/L Potassium 3.7 (3.5-4.5) mEq/L Chloride 101 (98-109) mEq/L Carbon Dioxide 27 (19-29) mEq/L BUN 13 (7-20) mg/dL Creatinine 0.79 (0.57-1.11) mg/dL Glucose 95 (70-99) mg/dL Calcium 9.1 (8.6-10.8) mg/dL Total Bilirubin 0.5 (0.2-1.2) mg/dL AST 18 (5-34) Units/L ALT 15 (0-55) Units/L Alkaline Phosphatase 51 (38-126) Units/L Albumin 3.1 L (3.5-5.0) g/dL - VTE Documentation of Mechanical Device: Intermittent pneumatic compression device Consult Discharge Plan - Plan Instructions: Anemia (GEN) Additional Instructions: finish antibiotic course continue with home health services please follow up with primary care doctor within one week of discharge return to emergency department if you develop fever, chills, chest pain, shortness of breath. Referrals: [facility] [Outside] - 03/22/17 4:00 pm (your Physician is ) Carroll Murillo MD [Partnered Physician] - 03/24/17 8:15 am Prescriptions: Cefdinir [Omnicef] 300 mg PO BID #4 capsule Fluticasone/Vilanterol [Breo Ellipta 100-25 Mcg INH] 1 each IH DAILY #1 blst.w.dev predniSONE [PredniSONE] 40 mg PO DAILY #6 tab <Steve Galarza - Last Filed: 03/16/17 15:00> Date of Encounter: 03/16/17 Objective Vital Signs - Last 8 Hours Temp Pulse Resp BP Pulse Ox 03/16/17 11:17 18 94 03/16/17 11:07 97.9 F 79 18 117/64 96 03/16/17 07:10 97.7 F 80 18 122/58 94 Intake and Output 03/15/17 03/16/17 03/16/17 23:59 07:59 15:59 Intake Total 720 / 720 60 / 60 600 / 600 Balance 720 / 720 60 / 60 600 / 600 Intake: Oral 720 / 720 60 / 60 600 / 600 Other: Meal ICE CREAM,BROTH,COFFEE,KRISTA Breakfast Percent of Meal Consumed 100% # Voids 2 Weight 89.086 kg Blood Glucose* 199 114 211 Patient Weight 03/16/17 23:59 Weight 89.086 kg - Labs 03/16/17 06:51 03/16/17 06:51 Diabetes panel 03/16/17 Range/Units 06:51 Sodium 138 (136-145) mEq/L Potassium 3.7 (3.5-4.5) mEq/L Chloride 101 (98-109) mEq/L Carbon Dioxide 27 (19-29) mEq/L BUN 13 (7-20) mg/dL Creatinine 0.79 (0.57-1.11) mg/dL Glucose 95 (70-99) mg/dL Calcium 9.1 (8.6-10.8) mg/dL AST 18 (5-34) Units/L ALT 15 (0-55) Units/L Alkaline Phosphatase 51 (38-126) Units/L Albumin 3.1 L (3.5-5.0) g/dL Calcium panel 03/16/17 Range/Units 06:51 Calcium 9.1 (8.6-10.8) mg/dL Albumin 3.1 L (3.5-5.0) g/dL Pituitary panel 03/16/17 Range/Units 06:51 Sodium 138 (136-145) mEq/L Potassium 3.7 (3.5-4.5) mEq/L Chloride 101 (98-109) mEq/L Carbon Dioxide 27 (19-29) mEq/L BUN 13 (7-20) mg/dL Creatinine 0.79 (0.57-1.11) mg/dL Glucose 95 (70-99) mg/dL Calcium 9.1 (8.6-10.8) mg/dL Adrenal panel 03/16/17 Range/Units 06:51 Sodium 138 (136-145) mEq/L Potassium 3.7 (3.5-4.5) mEq/L Chloride 101 (98-109) mEq/L Carbon Dioxide 27 (19-29) mEq/L BUN 13 (7-20) mg/dL Creatinine 0.79 (0.57-1.11) mg/dL Glucose 95 (70-99) mg/dL Calcium 9.1 (8.6-10.8) mg/dL Total Bilirubin 0.5 (0.2-1.2) mg/dL AST 18 (5-34) Units/L ALT 15 (0-55) Units/L Alkaline Phosphatase 51 (38-126) Units/L Albumin 3.1 L (3.5-5.0) g/dL - Attending Attestation For this encounter, I have reviewed the MEDICAL LIBRARY ASSISTANT or PA documentation, treatment plan, and medical decision making; and I have had face to face time with this patient. Review the above patient's his local exam and assessment and agree with the above. Patient denies any abdominal pain currently no nausea. I appreciate the pulmonary consultation. There is significant concern that the patient may do very poorly during surgical colonic resection however the CT scan findings are essentially concerning for apple core lesion consistent with colon cancer. Biopsy results are pending. I do think it will be appropriate for the patient to be maximized over the upcoming week to see if her lung status can be improved as much as possible. This will likely be followed up as an outpatient and I will be following up very closely with the patient next week. Once the decision is made to move forward we will admit the patient so that we can proceed with a right colectomy. We will go ahead and advance her diet as tolerated.
[2017-03-16 10:44] LABS: Carcinoembryonic Antigen 3.7 ng/mL (0-5.0)
[2017-03-16] MEDS: *HR* Heparin 5,000 UNIT/ML VIAL SQ SCH ×2 (11:19→17:18)
--- NOTE | 2017-03-16 14:56 | Cardiology Consult Note ---
Date of Encounter: 03/16/17 Time of Encounter: 14:57 Assessment and Plan (1) Preoperative cardiovascular examination Current Visit: Yes Status: Acute 76 year old with extensive lung disease, including prior lung cancer requiring chemotherapy and radiation. Presented with COPD and pneumonia. LVEF is normal. Severe pHTN noted in setting of severe lung disease. Normal RV function reported. Functional capacity greatly limited; does not routinely achieve 4 METs. Most recently at a rehabilitation facility. Although no active ACS or CHF, Rachel is at increased of adverse cardiopulmonary events during this moderate risk surgery due to her comorbidities and poor functional capacity. She has anemia, which does not make her a good candidate for an ischemic evaluation. I explained all of this to Rachel, including her elevated risk of adverse events during this surgery. She is willing to proceed. All questions answered. Please call if any further questions or concerns. Thanks, Javier Gordillo DO, FACC Discussion w patient/family: The assessment and plan as outlined above was discussed with the patient and/or family members who expressed understanding and agreement. All questions were answered. Thank you for involving us in the care of your patient. Please call with any questions. History of Present Illness Consult date: 03/16/17 Requesting physician: Sreedhar Dumont Consult reason: Preoperative Chief complaint: Preoperative History of present illness: Ms. Guillen is a 76 year old female who originally presented with dyspnea and pneumonia. Noted to have anemia, which prompted GI evaluation. Colonic mass identified and surgical resection has been recommended. Denies prior cardiac history; no history of [place]. Does report a history of CHF. History of lung cancer and extensive smoking related lung disease. Chronic dyspnea, even at rest, which worsens with minimal activity. Functional capacity limited due to dyspnea and pulmonary issues. She does not routinely achieve 4 METs. Past Med Surg Social Fam HX - Past Medical History Medical history: cancer (Lung - resolved), CHF, COPD, other Psychiatric history: no psych history - Past Surgical History Surgical History: hysterectomy, other (EGD/Colonoscopy 01/13/17) - Social History Smoking Status: Former smoker Packs per day: 1-1.5 PPD - reports quitting 4-5 months ago Smokeless Tobacco Status: No Alcohol use: none Drug use: none - Family History Mother Race: Family Member Ethnicity: Non- Living Status: Age at : 73 Cause of : Stroke Hx Family Cardiac Disorders: Yes (HTN) Hx Family Respiratory Disorders: No Hx Family Cancer: No Hx Family GI Disorders: No Hx Family Genitourinary Disorders: No Hx Family Endocrine Disorder: Yes (DM) Hx Family Musculoskeletal Disorders: No Hx Family Neuromuscular Disorders: No Hx Family Neurologic Disorders: No Hx Family HEENT Disorders: No Hx Family Autoimmune Disorders: No Hx Family Reproductive Disorders: No Hx Family Psychosocial Disorders: No Hx Family Medical Disorders: No Father Race: Family Member Ethnicity: Non- Living Status: Age at : 73 Cause of : Cancer Hx Family Cancer: Yes (Unknown) Sister Race: Family Member Ethnicity: Non- Living Status: Age at : 60 Cause of : Lung cancer Hx Family Cancer: Yes (Lung) Medications and Allergies Albuterol Sulfate [Albuterol Inhaler] 2 puff IH Q6H PRN 03/11/17 [History] Aspirin [Lo-Dose Aspirin EC] 81 mg PO DAILY 03/11/17 [History] Atorvastatin [Lipitor] 10 mg PO HS 03/11/17 [History] Esomeprazole Magnesium [Nexium] 40 mg PO DAILY 03/11/17 [History] FLUoxetine HCl [Fluoxetine HCl] 10 mg PO DAILY 03/11/17 [History] Furosemide [Lasix] 20 mg PO BID 03/11/17 [History] Lisinopril [Zestril] 5 mg PO DAILY 03/11/17 [History] Magnesium Oxide [Magnesium] 400 mg PO DAILY 03/11/17 [History] Oxybutynin [Ditropan] 5 mg PO DAILY 03/11/17 [History] Potassium Chloride [K-Tab ER] 10 meq PO DAILY 03/11/17 [History] metFORMIN [Glucophage] 850 mg PO BIDWM 03/11/17 [History] Cefdinir [Omnicef] 300 mg PO BID #4 capsule 03/15/17 [Rx] Fluticasone/Vilanterol [Breo Ellipta 100-25 Mcg INH] 1 each IH DAILY #1 blst.w.dev 03/15/17 [Rx] predniSONE [PredniSONE] 40 mg PO DAILY #6 tab 03/15/17 [Rx] 3 Allergy/AdvReac Type Severity Reaction Status Date / Time Penicillins Allergy Anaphylaxis Verified 03/10/17 15:33 All Systems Review: A 10-system review of systems was performed and is negative for pertinent findings except as documented above in the HPI. - Constitutional Constitutional: fatigue, weakness - Cardiovascular Cardiovascular: as per HPI, chest pain at rest, dyspnea on exertion - Respiratory Respiratory: dyspnea, wheezing - Musculoskeletal Musculoskeletal: arthralgias Physical Examination Vital Signs, Last 4 Hours Temp Pulse Resp BP Pulse Ox 03/16/17 11:17 18 94 03/16/17 11:07 97.9 F 79 18 117/64 96 General: Conversant, No Apparent Distress, Other (Disheveled appearing) HEENT: Atraumatic, Normocephaly, Mucus Membranes Moist Neck: No JVD, Normal carotid pulses Cardiac: Other (Distant, but regular) Lungs: Other (Shallow, bilateral wheezing noted. ) Abdomen: Soft, Non-Tender, Other (obese) Skin: No rashes noted on visualized skin Musculoskeletal: No Chest Wall Tenderness Extremities: No Clubbing, No Cyanosis, No Edema Results 03/16/17 06:51 03/16/17 06:51 Lab Results 03/16/17 03/16/17 06:51 06:51 WBC 9.4 Hgb 9.5 L Hct 31.9 L Plt Count 293 Sodium 138 Potassium 3.7 Chloride 101 Carbon Dioxide 27 BUN 13 Creatinine 0.79 Glucose 95 Calcium 9.1 Total Bilirubin 0.5 AST 18 ALT 15 Alkaline Phosphatase 51 - Imaging and Cardiology Echo: report reviewed - EKG Interpretation EKG results cardiology: personally reviewed Consult Discharge Plan - Plan Instructions: Anemia (GEN) Additional Instructions: finish antibiotic course continue with home health services please follow up with primary care doctor within one week of discharge return to emergency department if you develop fever, chills, chest pain, shortness of breath. Referrals: [facility] [Outside] - 03/22/17 4:00 pm (your Physician is ) Carroll Murillo MD [Partnered Physician] - 03/24/17 8:15 am Prescriptions: Cefdinir [Omnicef] 300 mg PO BID #4 capsule Fluticasone/Vilanterol [Breo Ellipta 100-25 Mcg INH] 1 each IH DAILY #1 blst.w.dev predniSONE [PredniSONE] 40 mg PO DAILY #6 tab
--- NOTE | 2017-03-16 19:03 | Anesthesia Evaluation PreOp ---
Date of Encounter: 03/16/17 Time of Encounter: 19:01 - Past History Planned Operation: Lap. Right Colectomy Cardiac History: CHF (Not currently in CHF), HTN, Hyperlipidemia Pulmonary History: Former smoker (quit 4 months ago, smoked for 60 years), COPD (home O2 at 3L,), MOO Dx (CPAP), Other (H/O lung CA S/P chemo/XRT) SHOW HOST OR HOSTESS History: Denies Any Significant HX Other Medical History: Diabetes Type II Anesthesia History: No Prior Anesthetic Complications, Past Anesthesia (NAN, C/S ) : No Alcohol Use: none Drug use: none Medications and Allergies Albuterol Sulfate [Albuterol Inhaler] 2 puff IH Q6H PRN 03/11/17 [History] Aspirin [Lo-Dose Aspirin EC] 81 mg PO DAILY 03/11/17 [History] Atorvastatin [Lipitor] 10 mg PO HS 03/11/17 [History] Esomeprazole Magnesium [Nexium] 40 mg PO DAILY 03/11/17 [History] FLUoxetine HCl [Fluoxetine HCl] 10 mg PO DAILY 03/11/17 [History] Furosemide [Lasix] 20 mg PO BID 03/11/17 [History] Lisinopril [Zestril] 5 mg PO DAILY 03/11/17 [History] Magnesium Oxide [Magnesium] 400 mg PO DAILY 03/11/17 [History] Oxybutynin [Ditropan] 5 mg PO DAILY 03/11/17 [History] Potassium Chloride [K-Tab ER] 10 meq PO DAILY 03/11/17 [History] metFORMIN [Glucophage] 850 mg PO BIDWM 03/11/17 [History] Cefdinir [Omnicef] 300 mg PO BID #4 capsule 03/15/17 [Rx] Fluticasone/Vilanterol [Breo Ellipta 100-25 Mcg INH] 1 each IH DAILY #1 blst.w.dev 03/15/17 [Rx] predniSONE [PredniSONE] 40 mg PO DAILY #6 tab 03/15/17 [Rx] 3 Allergy/AdvReac Type Severity Reaction Status Date / Time Penicillins Allergy Anaphylaxis Verified 03/10/17 15:33 - Meds/Allergy Pre-op Review Medications Reviewed: Yes Allergies Reviewed: Yes Beta Blockers on Current Med List: No Anesthesia Results - Labs 03/16/17 06:51 03/16/17 06:51 03/11/2017 Echo Impressions: Normal LV systolic function, LVEF 65%. Mild concentric left ventricular hypertrophy. Moderate left ventricular diastolic dysfunction. Normal right ventricular size and function. Mildly dilated left atrium. Mildly dilated right atrium. Moderate mitral annular calcification. Mild-moderate mitral stenosis. Severe pulmonary hypertension. Estimated RVSP = 66 mmHg. - Imaging EKG: report reviewed (SR) Anesthesia Exam O2 Sat Weight 89.086 kg O2 Sat by Pulse Oximetry 93 O2 Sat by Pulse Oximetry 95 O2 Sat by Pulse Oximetry 94 O2 Sat by Pulse Oximetry 96 O2 Sat by Pulse Oximetry 95 O2 Sat by Pulse Oximetry 94 O2 Sat by Pulse Oximetry 95 O2 Sat by Pulse Oximetry 96 O2 Sat by Pulse Oximetry 96 O2 Sat by Pulse Oximetry 97 O2 Sat by Pulse Oximetry 96 O2 Sat by Pulse Oximetry 96 O2 Sat by Pulse Oximetry 97 O2 Sat by Pulse Oximetry 93 Vital Signs Temp Pulse Resp BP Pulse Ox 98.9 F 98 22 148/57 79 03/10/17 15:34 03/10/17 15:34 03/10/17 15:34 03/10/17 15:34 03/10/17 15:34 Vital Signs/O2 Sat, Most Current Temp Pulse Resp BP Pulse Ox 97.5 F L 89 18 139/79 93 03/16/17 15:57 03/16/17 15:57 03/16/17 16:06 03/16/17 15:57 03/16/17 16:06 Height: 5'1'' Weight: 196# NPO (# of Hours): > 8 hrs Pain Scale: 0 - HEENT Pupil (Motor): Pupils equal, EOMI Mallampati: IV Teeth: Edentulous Oral Opening: Greater than 3 - SHOW HOST OR HOSTESS LOC: Oriented SHOW HOST OR HOSTESS Motor: Normal RUE, Normal LUE, Normal RLE, Normal LLE, Normal Face SHOW HOST OR HOSTESS Sensory: Normal: RUE, LUE, RLE, LLE, Face - Cardiac Rhythm: Regular Murmur: None JVD: No Carotid Bruit: No - Pulmonary Breath Sounds: bilateral Clear Respiratory Effort: Symmetrical Anesthesia Assess/Plan ASA Score: 4 (Sever Pulm Htn, DM, HTN, COPD, MOO) Modified Tiro Scale for Level of Consciousness: Cooperative, oriented, and tranquil Anesthetic Plan: General Autologous Blood: Yes Monitoring Plan: Standard Monitors Recovery Plan: PACU
[2017-03-16] MEDS: Tiotropium 18 MCG inhalation IH SCH (19:57)
[2017-03-17] MEDS: Ipratropium/Albuterol Neb 3 ML IH SCH ×4 (05:10→15:10)
[2017-03-17 05:46] LABS: Hematocrit 28.4 % (35.3-44.9); Hemoglobin 8.7 g/dL (11.5-15.4); Mean Corpuscular HGB Conc 30.6 g/dL (31.6-35.5); Mean Corpuscular Hemoglobin 24.9 pg (28.0-33.3); Mean Corpuscular Volume 81.4 fL (83.0-100.0); Platelet Count 340 K/mcL (140-400); Red Blood Count 3.49 M/mcL (3.82-4.97); Red Cell Distribution Width 17.2 % (11.5-14.5)
[2017-03-17] MEDS: *HR* Heparin 5,000 UNIT/ML VIAL SQ SCH ×2 (05:46→17:01)
[2017-03-17 06:02] LABS: ABG HCO3 32.8 mEQ/L (21-27); ABG Oxygen Saturation 94 % (95-98); ABG PCO2 53 mmHg (35-45); ABG PO2 70 mmHg (85-104); ABG TCO2 34.4 mEq/L (20-26)
[2017-03-17 06:04] LABS: BUN/Creatinine Ratio 16 (6-26); Blood Urea Nitrogen 13 mg/dL (7-20); Calcium 8.9 mg/dL (8.6-10.8); Chloride 100 mEq/L (98-109); Glucose 144 mg/dL (70-99); Osmolality,Calculated 289 (280-300); Potassium 3.6 mEq/L (3.5-4.5); Sodium 138 mEq/L (136-145); eGFR For African Americans > 60 (> 60); eGFR For Non-African Americans > 60 (> 60)
[2017-03-17 06:08] LABS: Blood Gas FiO2 32 %; Blood Gas Liter Flow 3 L/MIN
[2017-03-17 06:25] LABS: Carbon Dioxide 25 mEq/L (19-29)
[2017-03-17] MEDS: Insulin LISPRO 300 UNITS/3 ML VIAL SQ SCH ×3 (08:22→17:01)
[2017-03-17] MEDS: Furosemide 20 MG TABLET PO SCH ×2 (08:22→17:05)
[2017-03-17] MEDS ORDERED: predniSONE 20 MG TABLET PO SCH (09:00)
--- NOTE | 2017-03-17 09:55 | Pulmonology Progress Note ---
Date of Encounter: 03/17/17 Time of Encounter: 09:53 Assessment and Plan (1) Acute on chronic respiratory failure with hypoxia and hypercapnia Current Visit: Yes Status: Acute Continue supplemental O2 delivered via nasal cannula to keep saturation greater than 89% at all times. Qualification for BiPAP empiric setting should be 12 over 4 patient should be sent home with this (2) Encounter for preoperative pulmonary examination Current Visit: Yes Status: Acute Recommend delaying surgery for 1 week to allow COPD exacerbation and treatment for pneumonia in to take full effect. She should follow up with pulmonary clinic next Wednesday or Wednesday for reevaluation prior to planned surgery. I communicated my impressions directly with the surgeon Dr. Galarza (3) Heart failure with preserved ejection fraction Current Visit: Yes Status: Acute Continue daily Lasix regimen she has been evaluated by cardiology (4) Pulmonary hypertension Current Visit: Yes Status: Acute Continue treatment for heart failure with preserved ejection fraction along with hypoxia (5) COPD (chronic obstructive pulmonary disease) Current Visit: Yes Status: Acute Continue oral prednisone 40 mg taper over 2 weeks starting at day of discharge. She will take Advair discus 250/50 twice daily. Start Spiriva she should go home with this supplement on nebulized bronchodilators as needed she has a nebulizer at home. She is no longer smoking Qualifiers: COPD type: unspecified COPD Qualified Code(s): J44.9 - Chronic obstructive pulmonary disease, unspecified (6) Pneumonia Current Visit: Yes Status: Acute Complete 7 day course of antimicrobials Qualifiers: Pneumonia type: due to unspecified organism Laterality: bilateral Lung location: unspecified part of lung Qualified Code(s): J18.9 - Pneumonia, unspecified organism (7) MOO on CPAP Current Visit: Yes Status: Chronic She will need formal polysomnogram as outpatient on BiPAP (8) Colonic mass Current Visit: Yes Status: Acute This is an apple core lesion concerning for primary colon cancer surgery and gastroenterology are following Pulmonary we will sign off and please call with any questions Subjective Principal diagnosis: COPD exacerbation Interval history: No acute events overnight to his breathing continues to improve although she continues to cough up purulent sputum occasionally Objective PUL Vital signs: Last Vital Signs Temp 97.7 F 03/17/17 06:51 Pulse 84 03/17/17 06:51 Resp 16 03/17/17 06:51 BP 120/68 03/17/17 06:51 Pulse Ox 96 03/17/17 06:51 General appearance: no acute distress Effort: mildly labored Auscultation: bilateral: wheezes Gastrointestinal: normoactive bowel sounds, soft Extremities: edema Results - Laboratory Findings CBC and BMP: 03/17/17 04:56 03/17/17 04:56 ABG ABG pH 7.40 pH Units (7.32-7.45) 03/17/17 05:55 ABG pCO2 53 mmHg (35-45) H 03/17/17 05:55 ABG pO2 70 mmHg (85-104) L 03/17/17 05:55 ABG O2 Saturation 94 % (95-98) L 03/17/17 05:55 PT/INR, D-dimer PT 11.8 Seconds (9.4-12.1) 03/11/17 05:53 Abnormal lab findings: Abnormal lab results RBC 3.49 M/mcL (3.82-4.97) L 03/17/17 04:56 Hgb 8.7 g/dL (11.5-15.4) L 03/17/17 04:56 Hct 28.4 % (35.3-44.9) L 03/17/17 04:56 MCV 81.4 fL (83.0-100.0) L 03/17/17 04:56 MCH 24.9 pg (28.0-33.3) L 03/17/17 04:56 MCHC 30.6 g/dL (31.6-35.5) L 03/17/17 04:56 RDW 17.2 % (11.5-14.5) H 03/17/17 04:56 Nucleated RBCs/100 WBC 0.2 /100 WBC (0) H 03/12/17 18:51 Hypochromasia Present (Not Present) A 03/14/17 04:22 Anisocytosis 1+ (Not Present) A 03/14/17 04:22 Microcytosis Present (Not Present) A 03/14/17 04:22 APTT 25.4 Seconds (26.0-36.0) L 03/11/17 05:53 ABG pCO2 53 mmHg (35-45) H 03/17/17 05:55 ABG pO2 70 mmHg (85-104) L 03/17/17 05:55 ABG HCO3 32.8 mEQ/L (21-27) H 03/17/17 05:55 ABG Total CO2 34.4 mEq/L (20-26) H 03/17/17 05:55 ABG O2 Saturation 94 % (95-98) L 03/17/17 05:55 ABG Base Excess 7.0 mEq/L (-2.0 to 3.0) H 03/17/17 05:55 Glucose 144 mg/dL (70-99) H 03/17/17 04:56 POC Glucose 294 (58-89) H 03/16/17 21:17 Hemoglobin A1c 7.1 % (-5.6) H 03/11/17 05:53 Iron 27 mcg/dL (50-170) L 03/12/17 05:19 % Saturation 8 % (15-50) L 03/12/17 05:19 B-Natriuretic Peptide 257 pg/mL (0-100) H 03/10/17 16:39 Serum Total Protein 5.9 g/dL (6.0-8.3) L 03/16/17 06:51 Albumin 3.1 g/dL (3.5-5.0) L 03/16/17 06:51 Stool Occult Blood Positive (Negative) A 03/11/17 17:49 - Clinical Findings Intake & Output: Intake & Output 03/16/17 03/17/17 03/17/17 23:59 07:59 15:59 Intake Total 120 / 120 0 / 0 0 / 0 Output Total 500 / 500 0 / 0 Balance -380 / -380 0 / 0 0 / 0 Weight 89.086 kg - VTE Documentation of Mechanical Device: Intermittent pneumatic compression device Consult Discharge Plan - Plan Instructions: Anemia (GEN) Additional Instructions: finish antibiotic course continue with home health services please follow up with primary care doctor within one week of discharge return to emergency department if you develop fever, chills, chest pain, shortness of breath. Referrals: [facility] [Outside] - 03/22/17 4:00 pm (your Physician is ) Carroll Murillo MD [Partnered Physician] - 03/24/17 8:15 am Prescriptions: Cefdinir [Omnicef] 300 mg PO BID #4 capsule Fluticasone/Vilanterol [Breo Ellipta 100-25 Mcg INH] 1 each IH DAILY #1 blst.w.dev predniSONE [PredniSONE] 40 mg PO DAILY #6 tab
--- NOTE | 2017-03-17 10:46 | Discharge Summary ---
<TimSreedhar - Last Filed: 03/17/17 13:40> Date of Encounter: 03/17/17 Time of Encounter: 10:42 - Discharge Diagnosis (1) Colonic mass Priority: Primary Status: Acute (2) Dyspnea Priority: Secondary Status: Acute Qualifiers: Dyspnea type: shortness of breath Qualified Code(s): R06.02 - Shortness of breath; R06.00 - Dyspnea, unspecified; R06.01 - Orthopnea (3) Anemia Priority: Secondary Status: Acute Qualifiers: Anemia type: unspecified type Qualified Code(s): D64.9 - Anemia, unspecified (4) Weakness Priority: Secondary Status: Acute (5) Diabetes Priority: Secondary Status: Chronic Qualifiers: Diabetes mellitus type: type 2 Diabetes mellitus complication status: with unspecified complications Diabetes mellitus [facility] insulin use: unspecified [facility] insulin use status Qualified Code(s): E11.8 - Type 2 diabetes mellitus with unspecified complications (6) COPD exacerbation Priority: Secondary Status: Acute (7) DVT prophylaxis Priority: Secondary Status: Acute - Discharge Medications Prescriptions: Cefdinir [Omnicef] 300 mg PO BID #4 capsule Fluticasone/Vilanterol [Breo Ellipta 100-25 Mcg INH] 1 each IH DAILY #1 blst.w.dev predniSONE [PredniSONE] 40 mg PO DAILY #6 tab Home Medications: Albuterol Sulfate [Albuterol Inhaler] 2 puff IH Q6H PRN 03/11/17 [History] Aspirin [Lo-Dose Aspirin EC] 81 mg PO DAILY 03/11/17 [History] Atorvastatin [Lipitor] 10 mg PO HS 03/11/17 [History] Esomeprazole Magnesium [Nexium] 40 mg PO DAILY 03/11/17 [History] FLUoxetine HCl [Fluoxetine HCl] 10 mg PO DAILY 03/11/17 [History] Furosemide [Lasix] 20 mg PO BID 03/11/17 [History] Lisinopril [Zestril] 5 mg PO DAILY 03/11/17 [History] Magnesium Oxide [Magnesium] 400 mg PO DAILY 03/11/17 [History] Oxybutynin [Ditropan] 5 mg PO DAILY 03/11/17 [History] Potassium Chloride [K-Tab ER] 10 meq PO DAILY 03/11/17 [History] metFORMIN [Glucophage] 850 mg PO BIDWM 03/11/17 [History] Cefdinir [Omnicef] 300 mg PO BID #4 capsule 03/15/17 [Rx] Fluticasone/Vilanterol [Breo Ellipta 100-25 Mcg INH] 1 each IH DAILY #1 blst.w.dev 03/15/17 [Rx] predniSONE [PredniSONE] 40 mg PO DAILY #6 tab 03/15/17 [Rx] Allergies/Adverse Reactions: 3 Allergy/AdvReac Type Severity Reaction Status Date / Time Penicillins Allergy Anaphylaxis Verified 03/10/17 15:33 Procedures/tests Complete & Pending: Procedures Performed prior 72 hours Category Date Time Status CT abd pelvis w iv and oral [CT] Routine Cat Scan 03/15/17 19:00 Completed Date of admission: 03/11/17 18:11 Primary care physician: PCP NONE Consults: 03/12/17 08:37 Consult to Gastroenterology [CONS] Routine Consulting Provider: [facility]enter[facility] Reason for Consult: drop in Hg, possible Gi bleed. Call Completed: Yes 03/15/17 16:32 Consult to Surgery [CONS] Routine Consulting Provider: Surgery [facility] Reason for Consult: colon mass Call Completed: Yes 03/16/17 08:42 Consult to Pulmonology [CONS] Stat Consulting Provider: Pulm [facility] Reason for Consult: COPD/exacerbation Time Notified: 08:43 Call Completed: Yes 03/16/17 10:20 Consult to Cardiology [CONS] Routine Comment: Dr. Gordillo Consulting Provider: Cardiology [facility] Reason for Consult: Preop cardiovascular risk stratification in the setting of CHF and pulmonary HTN Time Notified: 10:30 Call Completed: Yes - Patient Status Disposition: Home Health Service Condition: Fair Overall status at discharge: patient is not back to baseline - Discharge Instructions Instructions: Prednisone (By mouth), Cefdinir (By mouth), Fluticasone/ Vilanterol (By breathing), Anemia (GEN) Follow Up With: [facility] [Outside] - 03/22/17 4:00 pm (your Physician is . ) Steve Galarza MD [Partnered Physician] - 03/24/17 10:00 am Carroll Murillo MD [Partnered Physician] - 03/24/17 8:15 Federico Barton MD [Partnered Physician] - Javier Gordillo DO [Partnered Physician] - Additional Instructions: F/U appointments with docs 1. Pulmonary clinic apt next wednesday or wednesday - currently lung function would not be able to handle intubation 2. Cardiology Clinic apt prior to surgery for surgical clearance 3. PCP [facility] - surgical clearance 4. Schedule surgery in 1 week finish antibiotic course continue with home health services - [place] return to emergency department if you develop fever, chills, chest pain, shortness of breath. Hospital course: Ms. Guillen is a 76 year old female was originally hospitalized due to increased SOB and weakness after 24 hours of being released from [facility] 03/09. Patient was originally thought to have pneumonia and non compliance. IV ceftriaxone and PO azithromycin were started in ED. Acute exacerbation of CHF was also considered. Patient was non-compliant with home medications and CPAP. Lasix was started. Patient hgb dropped from 10 to 8.2, stool guiaic was positive and EGD/colonoscopy were performed and a mass was identified in the ascending colon. Surgery was consulted and CT ordered and mass was confirmed. Surgery determined that the patient's current respiratory status was too much of a risk currently to perform resection. Patient will have outpatient follow up within a week with PCP, pulmonology, and cardiology, and plan to have surgery in 1 week. - Time Spent with Patient Total time spent providing and/or coordinating discharge services: - Constitutional Vitals: Temp Pulse Resp BP Pulse Ox 97.7 F 84 16 120/68 96 03/17/17 06:51 03/17/17 06:51 03/17/17 06:51 03/17/17 06:51 03/17/17 06:51 General appearance: Present: cooperative, A&O X 3, obese, answers questions appropriately - Respiratory Respiratory exam: Present: decreased breath sounds. Absent: accessory muscle use, rales, rhonchi, wheezes - Cardiovascular Cardiovascular exam: Present: RRR, +S1, +S2. Absent: diastolic murmur, gallop, rubs, systolic murmur - GI/Abdominal GI/Abdominal exam: Present: normal bowel sounds, soft, no peritoneal signs. Absent: distended, tenderness - Neurological Exam Neurological exam: Present: alert, oriented X3 - Psychiatric Psychiatric exam: Present: normal affect, normal mood - VTE Documentation of Mechanical Device: Intermittent pneumatic compression device <Norm San P - Last Filed: 03/17/17 18:05> Date of Encounter: 03/17/17 - Discharge Diagnosis (1) Anemia Status: Acute Qualifiers: Anemia type: unspecified type Qualified Code(s): D64.9 - Anemia, unspecified (2) COPD exacerbation Status: Acute (3) Congestive heart failure Status: Acute Qualifiers: Congestive heart failure type: diastolic Congestive heart failure chronicity: unspecified congestive heart failure chronicity Qualified Code(s) : I50.30 - Unspecified diastolic (congestive) heart failure (4) Diabetes Status: Chronic Qualifiers: Diabetes mellitus type: type 2 Diabetes mellitus complication status: with unspecified complications Diabetes mellitus [facility] insulin use: unspecified terminal computer operator insulin use status Qualified Code(s): E11.8 - Type 2 diabetes mellitus with unspecified complications (5) DVT prophylaxis Status: Acute Procedures/tests Complete & Pending: Procedures Performed prior 72 hours Category Date Time Status CT abd pelvis w iv and oral [CT] Routine Cat Scan 03/15/17 19:00 Completed Date of admission: 03/11/17 18:11 Primary care physician: PCP NONE Consults: 03/12/17 08:37 Consult to Gastroenterology [CONS] Routine Consulting Provider: G[facility]enter[facility] Reason for Consult: drop in Hg, possible Gi bleed. Call Completed: Yes 03/15/17 16:32 Consult to Surgery [CONS] Routine Consulting Provider: Surgery [facility] Reason for Consult: colon mass Call Completed: Yes 03/16/17 08:42 Consult to Pulmonology [CONS] Stat Consulting Provider: Pulm Crit [facility] Reason for Consult: COPD/exacerbation Time Notified: 08:43 Call Completed: Yes 03/16/17 10:20 Consult to Cardiology [CONS] Routine Comment: Dr. Gordillo Consulting Provider: Cardiology [facility] Reason for Consult: Preop cardiovascular risk stratification in the setting of CHF and pulmonary HTN Time Notified: 10:30 Call Completed: Yes Hospital course: Ms. Guillen is a 76 year old female - Time Spent with Patient Total time spent providing and/or coordinating discharge services: - Constitutional Vitals: Temp Pulse Resp BP Pulse Ox 98.0 F 86 20 126/65 93 03/17/17 11:24 03/17/17 11:24 03/17/17 15:10 03/17/17 11:24 03/17/17 15:10 - Attending Attestation I examined this patient and my medical decision-making was reviewed with the Resident Physician. I agree with the documented findings, disposition and treatment plan as described except to the extent set forth below. Follow with pulmonary/cardiology/surgery/primary care in next 1-2 weeks
[2017-03-17] MEDS: Tiotropium 18 MCG inhalation IH SCH (11:03)
--- NOTE | 2017-03-17 11:04 | Physician Discharge Referral ---
<TimAbrahamSreedhar - Last Filed: 03/17/17 11:03> Home Health/Hosp Referral Info Transfer to: Home Health ([place]) Provider in Charge Post Discharge: Other (PCP, Pulm, Cardiology, Surgery) - Diagnosis (1) Colonic mass Priority: Primary Status: Acute (2) Dyspnea Priority: Secondary Status: Acute (3) Anemia Priority: Secondary Status: Acute (4) Weakness Priority: Secondary Status: Acute (5) Diabetes Priority: Secondary Status: Chronic (6) COPD exacerbation Priority: Secondary Status: Acute (7) DVT prophylaxis Priority: Secondary Status: Acute - Respiratory Orders Smoking Cessation: Smoking cessation has been advised. For more information, call the [place] Tobacco Quit Line at 9-014-BHEM-NOW. - Transfer Medications Prescriptions: Cefdinir [Omnicef] 300 mg PO BID #4 capsule Fluticasone/Vilanterol [Breo Ellipta 100-25 Mcg INH] 1 each IH DAILY #1 blst.w.dev predniSONE [PredniSONE] 40 mg PO DAILY #6 tab Home Medications: Albuterol Sulfate [Albuterol Inhaler] 2 puff IH Q6H PRN 03/11/17 [History] Aspirin [Lo-Dose Aspirin EC] 81 mg PO DAILY 03/11/17 [History] Atorvastatin [Lipitor] 10 mg PO HS 03/11/17 [History] Esomeprazole Magnesium [Nexium] 40 mg PO DAILY 03/11/17 [History] FLUoxetine HCl [Fluoxetine HCl] 10 mg PO DAILY 03/11/17 [History] Furosemide [Lasix] 20 mg PO BID 03/11/17 [History] Lisinopril [Zestril] 5 mg PO DAILY 03/11/17 [History] Magnesium Oxide [Magnesium] 400 mg PO DAILY 03/11/17 [History] Oxybutynin [Ditropan] 5 mg PO DAILY 03/11/17 [History] Potassium Chloride [K-Tab ER] 10 meq PO DAILY 03/11/17 [History] metFORMIN [Glucophage] 850 mg PO BIDWM 03/11/17 [History] Cefdinir [Omnicef] 300 mg PO BID #4 capsule 03/15/17 [Rx] Fluticasone/Vilanterol [Breo Ellipta 100-25 Mcg INH] 1 each IH DAILY #1 blst.w.dev 03/15/17 [Rx] predniSONE [PredniSONE] 40 mg PO DAILY #6 tab 03/15/17 [Rx] Allergies/Adverse Reactions: 3 Allergy/AdvReac Type Severity Reaction Status Date / Time Penicillins Allergy Anaphylaxis Verified 03/10/17 15:33 Certification: Further, I certify that my clinical findings support that this patient is homebound (i.e. absences from home require considerable and taxing effort and are for medical reasons or restorationist services or infrequently or short duration when for other reasons) because: Homebound Reason: Patient requires assistance of a person or device to safely leave home Attestation: My signature below is to certify that this patient is under my care and that I, or nurse practitioner, or a physician's certified registered dental assistant working with me, has a face-to -face encounter with this patient. <Norm San P - Last Filed: 03/17/17 18:05> - Diagnosis (1) Anemia Status: Acute (2) COPD exacerbation Status: Acute (3) Congestive heart failure Status: Acute (4) Diabetes Status: Chronic (5) DVT prophylaxis Status: Acute - Respiratory Orders Smoking Cessation: Smoking cessation has been advised. For more information, call the [place] Tobacco Quit Line at 2-854-UCUY-NOW. Certification: Further, I certify that my clinical findings support that this patient is homebound (i.e. absences from home require considerable and taxing effort and are for medical reasons or restorationist services or infrequently or short duration when for other reasons) because: Attestation: My signature below is to certify that this patient is under my care and that I, or nurse practitioner, or a physician's certified registered dental assistant working with me, has a face-to -face encounter with this patient.
[2017-03-17 11:26] VITALS: BP 126/65
== END 2017-03-17 17:48 | disposition home health service (06) | DRG 190 ==
LOC: EMEROO 15:33 → 2ANU 15:33
PROVIDERS: ADMIT Internal Medicine; ATTEND Internal Medicine

== ENCOUNTER 2017-05-10 20:29 | Inpatient (IN) ==
[2017-05-10] MEDS ORDERED: Ipratropium/Albuterol Neb 3 ML IH ONE (20:35)
[2017-05-10] MEDS ORDERED: Azithromycin 500 MG in D5% in Water 250 ML IVPB ONE (20:35)
[2017-05-10] MEDS ORDERED: methylPREDNISolone 125 MG/2 ML VIAL IVP ONE (20:35)
--- NOTE | 2017-05-10 20:35 | Emergency Department Note ---
Disposition Clinical Impression: COPD exacerbation, Wheezing, Hypercapnia Dyspnea Qualifiers: Dyspnea type: unspecified Qualified Code(s): R06.00 - Dyspnea, unspecified Disposition: Admitted As Inpatient Condition: Fair Referrals: NONE,PCP [Primary Care Provider] - Forms: ED Satisfaction Letter Time of Disposition: 22:09 SOB HPI - General Chief Complaint: ED Shortness of Breath/Dyspnea Stated Complaint: ANGELITO Time Seen by Provider: 05/10/17 20:33 Source: patient, EMS Mode of arrival: EMS Limitations: no limitations Nursing Notes Reviewed: Yes Vital Signs Reviewed: Yes - History of Present Illness Patient is a 76-year-old female with past medical history of COPD, CHF. She presents via EMS due to shortness of breath and sinus congestion for the past two weeks. Patient says that she uses 2 L nasal cannula at all times at home for COPD. She has had multiple COPD exacerbations in the past that have required steroids. She has never been intubated but has required BiPAP before. She does admit to shortness of breath and chest tightness. She feels as though her chest is "congested." Denies any nausea, vomiting, fevers, abdominal pain, diarrhea. She also complains of headache and sinus congestion. - Related Data Home Medications Medication Instructions Recorded Confirmed Albuterol Sulfate [Albuterol 2 puff IH Q6H PRN 03/11/17 03/11/17 Inhaler] Aspirin [Lo-Dose Aspirin EC] 81 mg PO DAILY 03/11/17 03/11/17 Atorvastatin [Lipitor] 10 mg PO HS 03/11/17 03/11/17 Esomeprazole Magnesium [Nexium] 40 mg PO DAILY 03/11/17 03/11/17 FLUoxetine HCl [Fluoxetine HCl] 10 mg PO DAILY 03/11/17 03/11/17 Furosemide [Lasix] 20 mg PO BID 03/11/17 03/11/17 Lisinopril [Zestril] 5 mg PO DAILY 03/11/17 03/11/17 Magnesium Oxide [Magnesium] 400 mg PO DAILY 03/11/17 03/11/17 Oxybutynin [Ditropan] 5 mg PO DAILY 03/11/17 03/11/17 Potassium Chloride [K-Tab ER] 10 meq PO DAILY 03/11/17 03/11/17 metFORMIN [Glucophage] 850 mg PO BIDWM 03/11/17 03/11/17 Previous Rx's Medication Instructions Recorded Cefdinir [Omnicef] 300 mg PO BID #4 capsule 03/15/17 Fluticasone/Vilanterol [Breo 1 each IH DAILY #1 blst.w.dev 03/15/17 Ellipta 100-25 Mcg INH] predniSONE [PredniSONE] 40 mg PO DAILY #6 tab 03/15/17 predniSONE [PredniSONE] 10 mg PO DAILY #21 tablet 04/18/17 Allergies Allergy/AdvReac Type Severity Reaction Status Date / Time Penicillins Allergy Anaphylaxis Verified 03/10/17 15:33 All systems ED: reviewed and negative except as stated. Constitutional: Denies: fever Cardiovascular: Reports: chest pain Respiratory: Reports: dyspnea, wheezes Gastrointestinal: Denies: abdominal pain, nausea, vomiting, diarrhea Genitourinary: Denies: urgency, dysuria Integumentary: Denies: rash Neurological: Denies: weakness, numbness, paresthesias Past Medical History - Past Medical History Attestation: Yes The following information was validated with the patient. Source: patient Medical history: Reports: cancer, CHF, COPD, other Surgical history: Reports: hysterectomy, other (EGD/Colonoscopy 01/13/17) Psychiatric history: Reports: no psych history - Social History Smoking Status: Current every day smoker Smokeless Tobacco Status: No Alcohol use: Reports: none Drug use: Reports: none Physical Exam - General Limitations: no limitations General appearance: alert, in no apparent distress - Head Head exam: atraumatic, normocephalic, normal inspection, other (no tenderness of scalp or temporal regions) - Eye Eye exam: Present: normal appearance, PERRL, EOMI - ENT ENT exam: normal exam, normal oropharynx, mucous membranes moist - Neck Neck exam: Present: normal inspection, full ROM, trachea midline - Chest Chest inspection: Present: normal inspection, symmetric chest wall rise - Respiratory Respiratory exam: Present: wheezes, other (Moderately labored breathing with conversational dyspnea) - Cardiovascular Cardiovascular exam: Present: regular rate, normal rhythm, normal heart sounds - Abdominal Exam Abdominal exam: Present: soft, Non-Tender. Absent: tenderness, distention, guarding, rebound, rigidity - Extremities Exam Extremities exam: Present: full ROM, pedal edema (Mild edema and erythema of the bilateral lower extremities). Absent: tenderness - Neurological Exam Neurological exam: Present: alert, oriented X3 - Psychiatric Psychiatric exam: Present: normal affect, normal mood - Skin Skin exam: Present: warm, dry, intact, normal color Course Course Narrative: Blood pressure and heart rate within normal limits. 95% O2 on 2 L nasal cannula oxygen. On exam, heart is regular rate and rhythm, lungs show wheezes throughout and decreased aeration throughout. Moderate work of breathing with conversational dyspnea. Abdomen soft and benign. Mild edema and erythema of bilateral lower extremities consistent with chronic stasis dermatitis. Patient had one DuoNeb at home prior to calling EMS which she states helped significantly. We will order the patient did not have, steroids, azithromycin for COPD exacerbation. Also obtain basic blood work, troponin, chest x-ray, EKG. Chest discomfort is likely from COPD exacerbation but we will assess for cardiac etiology. 21:57 labs show tonic anemia, mild hyponatremia. Troponin negative. Chest x- ray negative. ABG shows acidosis with hypercapnia at 60. Patient is likely a chronic CO2 retainer. Patient was placed on BiPAP and she is much more comfortable and is now resting/sleeping. No current chest discomfort. We will admit the patient for COPD exacerbation. She has been given DuoNeb, Solu-Medrol , azithromycin. Vital Signs Temperature 0 F L 05/10/17 20:35 Pulse Rate 80 05/10/17 20:35 Respiratory Rate 18 05/10/17 20:35 Blood Pressure 114/101 05/10/17 20:35 O2 Sat by Pulse Oximetry 94 05/10/17 20:35 Temperature 0 F L 05/10/17 20:35 Pulse Rate 86 05/10/17 21:29 Respiratory Rate 17 05/10/17 21:55 Blood Pressure 130/49 05/10/17 21:29 O2 Sat by Pulse Oximetry 95 05/10/17 21:55 Oxygen Delivery Oxygen Delivery Aerosol Mask Shortness of Breath/Dyspnea - [facility] Narrative Medical decision making narrative: labs show tonic anemia, mild hyponatremia. EKG shows NSR with no acute ST changes. Troponin negative. Chest x-ray negative. ABG shows acidosis with hypercapnia at 60. Patient is likely a chronic CO2 retainer. Patient was placed on BiPAP and she is much more comfortable and is now resting/sleeping. No current chest discomfort. We will admit the patient for COPD exacerbation. She has been given DuoNeb, Solu-Medrol, azithromycin. - Medical Records Medical records reviewed: Yes I reviewed the patient's medical records. - Lab Data Lab results reviewed: Yes I reviewed the patient's lab results. Result diagrams: 05/10/17 21:15 05/10/17 21:15 Lab Results 05/10/17 05/10/17 05/10/17 Range/Units 21:15 21:15 21:15 WBC 9.0 (4.3-11.1) K/mcL RBC 3.84 (3.82-4.97) M/mcL Hgb 9.0 L (11.5-15.4) g/dL Hct 30.9 L (35.3-44.9) % MCV 80.5 L (83.0-100.0) fL MCH 23.4 L (28.0-33.3) pg MCHC 29.1 L (31.6-35.5) g/dL RDW 16.4 H (11.5-14.5) % Plt Count 376 (140-400) K/mcL MPV 9.7 (9.4-12.4) fL Immature Gran % 0.3 (0-4) % Seg Neutrophils % 69.3 % Lymphocytes % 19.3 % Monocytes % 7.9 % Eosinophils % 2.8 % Basophils % 0.4 % Neutrophils # 6.2 (1.6-8.9) K/mcL Lymphocytes # 1.7 (0.6-4.6) K/mcL Monocytes # 0.7 (0.0-1.3) K/mcL Eosinophils # 0.3 (0.0-0.6) K/mcL Basophils # 0.0 (0.0-0.2) K/mcL ESR (0-15) mm/hr Sodium 134 L (136-145) mEq/L Potassium 4.4 (3.5-4.5) mEq/L Chloride 97 L (98-109) mEq/L Carbon Dioxide 28 (19-29) mEq/L BUN 8 (7-20) mg/dL Creatinine 0.94 (0.57-1.11) mg/dL Est GFR ( Amer) > 60 (> 60) Est GFR (Non-Af Amer) 58 L (> 60) BUN/Creatinine Ratio 9 (6-26) Glucose 174 H (70-99) mg/dL Calculated Osmolality 281 (280-300) Lactic Acid 1.4 (0.5-2.2) mmol/L Calcium 8.9 (8.6-10.8) mg/dL Troponin I (0-0.03) ng/mL B-Natriuretic Peptide (0-100) pg/mL 05/10/17 05/10/17 05/10/17 Range/Units 21:15 21:15 21:15 WBC (4.3-11.1) K/mcL RBC (3.82-4.97) M/mcL Hgb (11.5-15.4) g/dL Hct (35.3-44.9) % MCV (83.0-100.0) fL MCH (28.0-33.3) pg MCHC (31.6-35.5) g/dL RDW (11.5-14.5) % Plt Count (140-400) K/mcL MPV (9.4-12.4) fL Immature Gran % (0-4) % Seg Neutrophils % % Lymphocytes % % Monocytes % % Eosinophils % % Basophils % % Neutrophils # (1.6-8.9) K/mcL Lymphocytes # (0.6-4.6) K/mcL Monocytes # (0.0-1.3) K/mcL Eosinophils # (0.0-0.6) K/mcL Basophils # (0.0-0.2) K/mcL ESR 106 H (0-15) mm/hr Sodium (136-145) mEq/L Potassium (3.5-4.5) mEq/L Chloride (98-109) mEq/L Carbon Dioxide (19-29) mEq/L BUN (7-20) mg/dL Creatinine (0.57-1.11) mg/dL Est GFR ( Amer) (> 60) Est GFR (Non-Af Amer) (> 60) BUN/Creatinine Ratio (6-26) Glucose (70-99) mg/dL Calculated Osmolality (280-300) Lactic Acid (0.5-2.2) mmol/L Calcium (8.6-10.8) mg/dL Troponin I 0.01 (0-0.03) ng/mL B-Natriuretic Peptide 307 H (0-100) pg/mL - Radiology Data Radiology results reviewed: Yes I reviewed the patient's radiology results. Chest X-Ray 05/10/17 20:35 IMPRESSION: Stable appearance of the chest without evidence of acute process. D/ / 05/10/2017 21:10:27 Sofia Fletcher / wiliam Interpreting Provider: Sofia Fletcher Head CT 05/10/17 20:36 IMPRESSION: 1. No acute intracranial abnormality. 2. Mild global parenchymal volume loss with chronic microvascular ischemic change. 3. Atherosclerosis. 4. Trace right mastoid effusion. D/ / Brenden Abdul MD / Brenden Abdul MD Interpreting Provider: Brenden Abdul MD - EKG Data EKG attestation: Yes I reviewed and interpreted this EKG. EKG results narrative: 05/10/2017 at 20:38. Normal sinus rhythm. Rate 85. [place] 157. QRS 77. QTC 415. No acute ST elevation or depression. No acute changes from previous EKG on 04/18/2017 Critical Care Time Total Critical Care Time: 35 Attestation: I spent greater than 35 minutes of critical care time was spent resuscitating this acutely ill patient suffering from hypersomnolence and hypercapnia. This is excluding billable procedures. S.B.A.R. - Chilo.John.A.RHayder Situation: Demographics, MOA Background: Presenting Complaint, Relevant PMH, Meds, & Allergies Assessment: Vital Signs, Course and respsone to treatment, Exam Concerns, Patient/Family Expectation, Pertinant Lab Results Recommendation: Barrier(s) to disposition, Recommendation based on pending studies, treatments, or consults S.B.A.RHayder Report Given to: Dr. Edward Santa Repor Time: 22:09 Attestation Statement - Attestation Attestation: I examined this patient and my medical decision-making was reviewed with the Resident Physician. I agree with the documented findings, disposition and treatment plan as described except to the extent set forth below. COPD, ongoing tobacco abuse. Presents with dyspnea. Per Minute with acidosis. Suspect acute on chronic respiratory failure. Also has headache and eye pain. We will obtain sedimentation rate to rule out temporal arteritis although I have low suspicion. Additionally we will obtain CT of the brain. This actually shows no acute findings. Chest x-ray shows no acute findings. Plan to admit for evaluation of COPD. BiPAP was initiated due to hypersomnolence.
[2017-05-10 21:29] LABS: Basophils % 0.4 %; Eosinophils # 0.3 K/mcL (0.0-0.6); Eosinophils % 2.8 %; Hematocrit 30.9 % (35.3-44.9); Immature Granulocytes % 0.3 % (0-4); Lymphocytes # 1.7 K/mcL (0.6-4.6); Lymphocytes % 19.3 %; Mean Corpuscular HGB Conc 29.1 g/dL (31.6-35.5); Mean Corpuscular Hemoglobin 23.4 pg (28.0-33.3); Mean Corpuscular Volume 80.5 fL (83.0-100.0); Mean Platelet Volume 9.7 fL (9.4-12.4); Monocytes # 0.7 K/mcL (0.0-1.3); Monocytes % 7.9 %; Neutrophils # 6.2 K/mcL (1.6-8.9); Platelet Count 376 K/mcL (140-400); Red Blood Count 3.84 M/mcL (3.82-4.97); Red Cell Distribution Width 16.4 % (11.5-14.5); Segmented Neutrophils % 69.3 %
[2017-05-10 21:40] LABS: BUN/Creatinine Ratio 9 (6-26); Blood Urea Nitrogen 8 mg/dL (7-20); Calcium 8.9 mg/dL (8.6-10.8); Carbon Dioxide 28 mEq/L (19-29); Chloride 97 mEq/L (98-109); Glucose 174 mg/dL (70-99); Osmolality,Calculated 281 (280-300); Potassium 4.4 mEq/L (3.5-4.5); Sodium 134 mEq/L (136-145); eGFR For African Americans > 60 (> 60); eGFR For Non-African Americans 58 (> 60)
[2017-05-11] MEDS ORDERED: Ipratropium/Albuterol Neb 3 ML IH PRN (06:03)
[2017-05-11] MEDS ORDERED: Naloxone 0.4 MG/ML INJ IVP PRN (07:34)
[2017-05-11] MEDS ORDERED: D5% in Water 1,000 ML IVC PRN (07:36)
[2017-05-11] MEDS ORDERED: Dextrose Gel 15 GM PO PRN ×2 (07:36)
[2017-05-11] MEDS ORDERED: *HR* Dextrose 50 % in Water (Syg) 50 ML SYRINGE IVP PRN (07:36)
[2017-05-11 08:40] LABS: Hemoglobin A1C 7.4 %
--- NOTE | 2017-05-11 09:00 | Internal Med History&Physical ---
Date of Encounter: 05/11/17 Time of Encounter: 09:34 Assessment and Plan (1) Acute on chronic respiratory failure with hypoxia and hypercapnia Current visit: Yes Status: Acute Due to acute exacerbation of COPD. O2 supplementation. BiPAP as needed. Monitor vital signs. Will treat underlying COPD. High risk for complications. (2) COPD exacerbation Current visit: Yes Status: Acute Will treat with bronchodilators, intravenous steroids and O2 supplementation. High risk for complications. Short course of azithromycin. (3) Anemia Current visit: Yes Status: Acute Likely due to underlying colon mass/cancer. We will Monitor blood counts. Qualifiers: Anemia type: iron deficiency Iron deficiency anemia type: chronic blood loss Qualified Code(s): D50.0 - Iron deficiency anemia secondary to blood loss (chronic) (4) Colonic mass Current visit: Yes Status: Acute Will consult surgery if patient is agreeable to surgery at this time. Presently she is requiring BiPAP and is unstable for surgery. (5) Diabetes Current visit: Yes Status: Chronic Monitor blood sugar levels. Place patient on sliding scale insulin. Given that the patient would be on IV steroids, would expect blood sugars to rise further. We will adjust insulin regimen accordingly. Qualifiers: Diabetes mellitus type: type 2 Diabetes mellitus complication status: with unspecified complications Diabetes mellitus terminal operator insulin use: unspecified terminal operator insulin use status Qualified Code(s): E11.8 - Type 2 diabetes mellitus with unspecified complications (6) DVT prophylaxis Current visit: Yes Status: Acute With subcutaneous heparin Internal Medicine - H&P: HPI Chief complaint: Shortness of breath Admitted From: Emergency Dept History of present illness: Ms. Guillen is a 76 year old female patient with history of COPD, CHF who presented to the ER with complaints of worsening shortness of breath. Patient has always had some degree of shortness of breath and was admitted here in February for pneumonia and acute CHF. In the ER, she was tachypneic and was placed on BiPAP. Patient had never previously been intubated but had previously been placed on BiPAP. She denies any fever or chills. Does have cough with sputum production. No hemoptysis. No chest pain. No nausea or vomiting. She had recently been diagnosed with possible colon cancer and was being evaluated by surgery for surgical resection. However, she has not yet decided if she was going to have surgery. Past Med Surg Social Fam HX - Past Medical History Attestation: Yes The following information was validated with the patient. Source: patient, old records reviewed Medical history: cancer, CHF, COPD, other Psychiatric history: no psych history - Past Surgical History Surgical History: hysterectomy, other - Social History Smoking Status: Current every day smoker Smokeless Tobacco Status: No Alcohol use: none Drug use: none - Family History Mother Family Member Ethnicity: Non- Living Status: Hx Family Cardiac Disorders: Yes (HTN) Hx Family Respiratory Disorders: No Hx Family Cancer: No Hx Family GI Disorders: No Hx Family Endocrine Disorder: Yes (DM) Hx Family Neuromuscular Disorders: No Hx Family Neurologic Disorders: No Hx Family HEENT Disorders: No Hx Family Autoimmune Disorders: No Father Family Member Ethnicity: Non- Living Status: Hx Family Cancer: Yes (Unknown) Sister Family Member Ethnicity: Non- Living Status: Hx Family Cancer: Yes (Lung) Internal Medicine - H&P: Meds Albuterol Sulfate [Albuterol Inhaler] 2 puff IH Q6H PRN 03/11/17 [History] Aspirin [Lo-Dose Aspirin EC] 81 mg PO DAILY 03/11/17 [History] Atorvastatin [Lipitor] 10 mg PO HS 03/11/17 [History] Esomeprazole Magnesium [Nexium] 40 mg PO DAILY 03/11/17 [History] FLUoxetine HCl [Fluoxetine HCl] 10 mg PO DAILY 03/11/17 [History] Furosemide [Lasix] 20 mg PO BID 03/11/17 [History] Lisinopril [Zestril] 5 mg PO DAILY 03/11/17 [History] Magnesium Oxide [Magnesium] 400 mg PO DAILY 03/11/17 [History] Oxybutynin [Ditropan] 5 mg PO DAILY 03/11/17 [History] Potassium Chloride [K-Tab ER] 10 meq PO DAILY 03/11/17 [History] metFORMIN [Glucophage] 850 mg PO BIDWM 03/11/17 [History] Acetylcysteine [B-Odffqt-v-Cysteine] 600 mg PO BID 05/11/17 [History] Fluticasone/Salmeterol [Advair 250-50 Diskus] 1 puff IH BID 05/11/17 [History] Gabapentin [Neurontin] 300 mg PO TID 05/11/17 [History] 3 Allergy/AdvReac Type Severity Reaction Status Date / Time Penicillins Allergy Anaphylaxis Verified 03/10/17 15:33 All Systems PM: A 10-system review of systems was performed and is negative for pertinent findings except as documented above in the HPI. - Constitutional Constitutional: no chills, no fever(s), no night sweats - EENT Eyes: no change in vision, no discharge, no pain, no photophobia Ears: no ear discharge, no ear pain, no tinnitus Nose, mouth and throat: no dysphagia, no nasal discharge, no neck pain, no sore throat - Cardiovascular Cardiovascular ROS IM: no chest pain, no diaphoresis, no dyspnea, no lightheadedness, no palpitations, no syncope - Respiratory Respiratory: cough, dyspnea, dyspnea on exertion, wheezing, excessive phlegm production - Gastrointestinal Gastrointestinal: abdominal pain, no diarrhea, no hematemesis, no hematochezia, no melena, no nausea, no vomiting - Genitourinary Genitourinary: no change in urinary stream, no dysuria, no flank pain, no hematuria - Musculoskeletal Musculoskeletal ROS IM: no numbness, no tingling - Integumentary Integumentary IM: no rash, no unusual bruising - Neurological Neurological ROS: no confusion, no convulsions, no focal weakness, no numbness, no tingling, no tremor(s) - Hematologic/Lymphatic Hematologic/Lymphatic: no easy bruising - Constitutional Vitals: Temp Pulse Resp BP Pulse Ox 97.8 F 60 22 107/53 94 05/11/17 07:18 05/11/17 07:18 05/11/17 07:18 05/11/17 07:18 05/11/17 07:18 General appearance: Present: cooperative, A&O X 3, severe distress, answers questions appropriately - Eye Eye exam: Present: EOMI, PERRL, conjuntiva pink, sclera anicteric - ENT Additional comments: BiPAP mask in Place - Respiratory Respiratory exam: Present: decreased breath sounds (Decreased air entry bilaterally), prolonged expiratory phase, wheezes. Absent: accessory muscle use , rales, rhonchi - Cardiovascular Cardiovascular exam: Present: RRR, +S1, +S2. Absent: diastolic murmur, gallop, rubs, systolic murmur - GI/Abdominal GI/Abdominal exam: Present: normal bowel sounds, soft, tenderness (Right lower quadrant), no peritoneal signs. Absent: distended - Extremities Exam Extremities exam: Present: warm, radial pulses palpable and symmetrical. Absent : calf tenderness, cyanotic, pedal edema - Neurological Exam Neurological exam: Present: alert, oriented X3, no focal deficits. Absent: facial droop, speech deficit - Skin Skin exam: Present: dry, intact Internal Med - H&P Results - Labs CBC & Chem 7: 05/10/17 21:15 05/10/17 21:15 - Impressions Impressions Chest X-Ray 05/10/17 20:35 IMPRESSION: Stable appearance of the chest without evidence of acute process. D/ / 05/10/2017 21:10:27 Sofia Fletcher / wiliam Interpreting Provider: Sofia Fletcher Head CT 05/10/17 20:36 IMPRESSION: 1. No acute intracranial abnormality. 2. Mild global parenchymal volume loss with chronic microvascular ischemic change. 3. Atherosclerosis. 4. Trace right mastoid effusion. D/ / Brenden Abdul MD / Brenden Abdul MD Interpreting Provider: Brenden Abdul MD
[2017-05-11 09:14] LABS: ABG Base Excess 3 mEq/L (-2 to 3); ABG HCO3 31 mEq/L (21-27); ABG Oxygen Saturation 92 % (95-98); ABG PCO2 64 mmHg (35-45); ABG PH 7.29 pH Units (7.32-7.45); ABG PO2 73 mmHg (85-104); ABG TCO2 33 mEq/L (20-26)
[2017-05-11] MEDS: Ipratropium/Albuterol Neb 3 ML IH SCH ×4 (10:45→23:48)
[2017-05-11] MEDS: Insulin LISPRO 300 UNITS/3 ML VIAL SQ SCH ×2 (12:25→16:48)
--- NOTE | 2017-05-11 12:47 | Electrocardiograph Report ---
[place] [id number] Test Date: 2017-05-10 Pat Name: Rachel Guillen Department: 103 Room: 2A26 Gender: F Public Health Administrator: YARIEL : 1940 Requested By: Brenden Pereira Order Number: [id number] Reading MD: Eliane Nelson Measurements Intervals [place] Rate: 85 P: 46 WV: 157 QRS: 19 QRSD: 77 T: 51 QT: 373 QTc: 415 Interpretive Statements SINUS RHYTHM WITH OCCASIONAL SUPRAVENTRICULAR PREMATURE COMPLEXES Electronically Signed On 05-11-2017 12:46:06 EDT by Eliane Nelson
[2017-05-11] MEDS ORDERED: GuaiFENesin Liq 200 MG/10 ML UDC PO PRN (13:37)
[2017-05-11] MEDS: methylPREDNISolone 125 MG/2 ML VIAL IVP SCH (15:18)
[2017-05-11] MEDS: Budesonide/Formoterol 80/4.5 MDI IH SCH (19:51)
[2017-05-11] MEDS: *HR* Heparin 5,000 UNIT/ML VIAL SQ SCH (20:16)
[2017-05-11] MEDS: Gabapentin 300 MG CAPSULE PO SCH (20:16)
[2017-05-11] MEDS: Furosemide 20 MG TABLET PO SCH (20:17)
[2017-05-11] MEDS: *HR* Acetylcysteine 20% 600 MG/3 ML ORAL SYRINGE PO SCH (20:18)
[2017-05-11] MEDS: Acetaminophen 325 MG TABLET PO PRN (20:20)
[2017-05-11] MEDS ORDERED: Azithromycin 500 MG in D5% in Water 250 ML IVPB SCH (21:00)
[2017-05-11] MEDS ORDERED: Insulin LISPRO 300 UNITS/3 ML VIAL SQ SCH (21:00)
[2017-05-12] MEDS: methylPREDNISolone 125 MG/2 ML VIAL IVP SCH ×3 (00:28→17:07)
[2017-05-12] MEDS: Ipratropium/Albuterol Neb 3 ML IH SCH ×6 (04:36→23:25)
[2017-05-12] MEDS: *HR* Heparin 5,000 UNIT/ML VIAL SQ SCH ×2 (04:59→17:07)
[2017-05-12 05:57] LABS: Hematocrit 30.6 % (35.3-44.9); Hemoglobin 8.7 g/dL (11.5-15.4); Immature Granulocytes % 0.5 % (0-4); Lymphocytes % 7.3 %; Mean Corpuscular HGB Conc 28.4 g/dL (31.6-35.5); Mean Corpuscular Hemoglobin 22.9 pg (28.0-33.3); Mean Corpuscular Volume 80.5 fL (83.0-100.0); Mean Platelet Volume 10.2 fL (9.4-12.4); Monocytes # 0.2 K/mcL (0.0-1.3); Monocytes % 1.8 %; Platelet Count 408 K/mcL (140-400); Red Cell Distribution Width 16.5 % (11.5-14.5); Segmented Neutrophils % 90.4 %
[2017-05-12 05:58] LABS: Lymphocytes # 0.7 K/mcL (0.6-4.6); Neutrophils # 9.2 K/mcL (1.6-8.9)
[2017-05-12 06:04] LABS: BUN/Creatinine Ratio 19 (6-26); Carbon Dioxide 27 mEq/L (19-29); Chloride 92 mEq/L (98-109); Glucose 267 mg/dL (70-99); Osmolality,Calculated 276 (280-300); Potassium 5.4 mEq/L (3.5-4.5); eGFR For African Americans > 60 (> 60); eGFR For Non-African Americans 51 (> 60)
[2017-05-12 06:06] LABS: Blood Urea Nitrogen 20 mg/dL (7-20); Sodium 127 mEq/L (136-145)
[2017-05-12 06:52] LABS: Anisocytosis 1+ (Not Present); Hypochromasia Present (Not Present); Platelet Estimate Normal (Normal)
[2017-05-12] MEDS: Budesonide/Formoterol 80/4.5 MDI IH SCH (07:44)
[2017-05-12] MEDS: Aspirin Enteric Coated 81 MG Tablet PO SCH (08:01)
[2017-05-12] MEDS: FLUoxetine HCl 10 MG CAPSULE PO SCH (08:02)
[2017-05-12] MEDS: Furosemide 20 MG TABLET PO SCH ×2 (08:02→17:07)
[2017-05-12] MEDS: *HR* Acetylcysteine 20% 600 MG/3 ML ORAL SYRINGE PO SCH ×2 (08:02→20:35)
[2017-05-12] MEDS: Gabapentin 300 MG CAPSULE PO SCH ×3 (08:02→20:35)
[2017-05-12] MEDS: Magnesium Oxide 400 MG TABLET PO SCH (08:02)
[2017-05-12] MEDS: Insulin LISPRO 300 UNITS/3 ML VIAL SQ SCH ×4 (08:03→22:07)
--- NOTE | 2017-05-12 15:54 | Internal Med Progress Note ---
Date of Encounter: 05/12/17 Time of Encounter: 11:00 - Assessment and plan (1) Acute on chronic respiratory failure with hypoxia and hypercapnia Current Visit: Yes Status: Acute Assessment and plan: Continue O2 supplementation. On nasal cannula at 3 L/m. Has not required BiPAP since yesterday evening. Moderate risk for complications. (2) COPD exacerbation Current Visit: Yes Status: Acute Assessment and plan: Continues to have shortness of breath with minimal exertion and wheezing. Continue bronchodilators and steroids. (3) Anemia Current Visit: Yes Status: Acute Assessment and plan: Likely due to colon mass. Hgb 8.7 today. We will continue to monitor blood counts. Iron supplementation. Qualifiers: Anemia type: iron deficiency Iron deficiency anemia type: chronic blood loss Qualified Code(s): D50.0 - Iron deficiency anemia secondary to blood loss (chronic) (4) Colonic mass Current Visit: Yes Status: Acute Assessment and plan: Patient does not want at this time as she is concerned about her breathing. She understands that her lung capacity may not improve and she would not continue to remain at risk for respiratory failure with surgery. She does not want to take that risk at this time. She does understand that the mass could be cancerous. (5) Diabetes Current Visit: Yes Status: Chronic Assessment and plan: Blood sugars remain elevated. We will add long-acting insulin Qualifiers: Diabetes mellitus type: type 2 Diabetes mellitus complication status: with unspecified complications Diabetes mellitus mcc insulin use: unspecified mcc insulin use status Qualified Code(s): E11.8 - Type 2 diabetes mellitus with unspecified complications (6) DVT prophylaxis Current Visit: Yes Status: Acute Assessment and plan: With subcutaneous heparin - Subjective Interval history: Patient is awake and alert. Sitting up in chair. Feels that her shortness of breath is improving as long as patient is resting. Her symptoms worsened with minimal exertion. - Constitutional Vitals: Temp Pulse Resp BP Pulse Ox 97.7 F 86 23 126/66 92 05/12/17 11:10 05/12/17 11:10 05/12/17 11:10 05/12/17 11:10 05/12/17 11:10 General appearance: Present: cooperative, A&O X 3, obese, answers questions appropriately Exam: Moderate distress - Neck Neck exam general surgery: Present: supple, trachea midline. Absent: lymphadenopathy - Respiratory Respiratory exam: Present: decreased breath sounds (Decreased air entry bilaterally), prolonged expiratory phase, wheezes. Absent: accessory muscle use , rales, rhonchi - Cardiovascular Cardiovascular exam: Present: RRR, +S1, +S2. Absent: diastolic murmur, gallop, rubs, systolic murmur - GI/Abdominal GI/Abdominal exam: Present: normal bowel sounds, soft, no peritoneal signs. Absent: distended, tenderness - Extremities Exam Extremities exam: Present: warm, radial pulses palpable and symmetrical. Absent : calf tenderness, cyanotic, pedal edema - Neurological Exam Neurological exam: Present: alert, oriented X3, no focal deficits. Absent: facial droop, speech deficit Internal Medicine: Result - Labs CBC & Chem 7: 05/12/17 05:31 05/12/17 05:31 - ABG Interpretation ABG results: ABG ABG pH 7.29 pH Units (7.32-7.45) L 05/10/17 21:25 ABG pCO2 64 mmHg (35-45) H 05/10/17 21:25 ABG pO2 73 mmHg (85-104) L 05/10/17 21:25 ABG O2 Saturation 92 % (95-98) L 05/10/17 21:25 Consult Discharge Plan - Plan Referrals: Steve Galarza MD [Primary Care Provider] -
[2017-05-12 16:32] LABS: BUN/Creatinine Ratio 27 (6-26); Blood Urea Nitrogen 24 mg/dL (7-20); Calcium 9.3 mg/dL (8.6-10.8); Carbon Dioxide 29 mEq/L (19-29); Chloride 93 mEq/L (98-109); Glucose 230 mg/dL (70-99); Osmolality,Calculated 283 (280-300); Potassium 5.2 mEq/L (3.5-4.5); Sodium 131 mEq/L (136-145); eGFR For African Americans > 60 (> 60); eGFR For Non-African Americans > 60 (> 60)
[2017-05-12] MEDS: Budesonide/Formoterol 160/4.5 MDI IH SCH (19:26)
[2017-05-12] MEDS: Azithromycin 250 MG TABLET PO SCH (20:35)
[2017-05-12] MEDS: Insulin DETEMIR 100 UNIT/ML X5UNITS SQ SCH (22:08)
[2017-05-13] MEDS: methylPREDNISolone 125 MG/2 ML VIAL IVP SCH ×2 (00:22→07:59)
[2017-05-13] MEDS: Ipratropium/Albuterol Neb 3 ML IH SCH ×6 (03:58→23:07)
[2017-05-13 05:40] LABS: Basophils % 0.1 %; Hematocrit 28.6 % (35.3-44.9); Hemoglobin 8.6 g/dL (11.5-15.4); Immature Granulocytes % 0.7 % (0-4); Lymphocytes # 0.6 K/mcL (0.6-4.6); Lymphocytes % 7.3 %; Mean Corpuscular HGB Conc 30.1 g/dL (31.6-35.5); Mean Corpuscular Volume 79.7 fL (83.0-100.0); Mean Platelet Volume 10.1 fL (9.4-12.4); Monocytes # 0.3 K/mcL (0.0-1.3); Monocytes % 4.1 %; Neutrophils # 7.1 K/mcL (1.6-8.9); Platelet Count 397 K/mcL (140-400); Red Blood Count 3.59 M/mcL (3.82-4.97); Red Cell Distribution Width 16.3 % (11.5-14.5); Segmented Neutrophils % 87.8 %
[2017-05-13] MEDS: *HR* Heparin 5,000 UNIT/ML VIAL SQ SCH ×2 (05:42→17:24)
[2017-05-13 05:49] LABS: BUN/Creatinine Ratio 25 (6-26); Blood Urea Nitrogen 24 mg/dL (7-20); Calcium 9.1 mg/dL (8.6-10.8); Carbon Dioxide 30 mEq/L (19-29); Chloride 92 mEq/L (98-109); Glucose 290 mg/dL (70-99); Osmolality,Calculated 283 (280-300); Potassium 5.1 mEq/L (3.5-4.5); Sodium 129 mEq/L (136-145); eGFR For African Americans > 60 (> 60); eGFR For Non-African Americans 58 (> 60)
[2017-05-13] MEDS: Budesonide/Formoterol 160/4.5 MDI IH SCH ×2 (07:50→19:46)
[2017-05-13] MEDS: FLUoxetine HCl 10 MG CAPSULE PO SCH (07:59)
[2017-05-13] MEDS: Magnesium Oxide 400 MG TABLET PO SCH (07:59)
[2017-05-13] MEDS: Aspirin Enteric Coated 81 MG Tablet PO SCH (07:59)
[2017-05-13] MEDS: Gabapentin 300 MG CAPSULE PO SCH ×3 (07:59→21:18)
[2017-05-13] MEDS: Furosemide 20 MG TABLET PO SCH ×2 (08:00→17:24)
[2017-05-13] MEDS: Insulin LISPRO 300 UNITS/3 ML VIAL SQ SCH ×5 (08:01→21:17)
[2017-05-13] MEDS: *HR* Acetylcysteine 20% 600 MG/3 ML ORAL SYRINGE PO SCH ×2 (08:01→21:16)
[2017-05-13] MEDS: Insulin DETEMIR 100 UNIT/ML X5UNITS SQ SCH ×2 (08:42→21:17)
--- NOTE | 2017-05-13 12:57 | Internal Med Progress Note ---
Date of Encounter: 05/13/17 Time of Encounter: 10:10 - Assessment and plan (1) Acute on chronic respiratory failure with hypoxia and hypercapnia Current Visit: Yes Status: Acute Assessment and plan: Due to underlying COPD exacerbation. Continue O2 supplementation. We will check for overnight oxygen saturation to see if she will qualify for BiPAP use at home. PCO2 was 64 on admission. (2) COPD exacerbation Current Visit: Yes Status: Acute Assessment and plan: Continue bronchodilators. We will start to taper steroids. Complete 5 day azithromycin course. (3) Anemia Current Visit: Yes Status: Chronic Assessment and plan: Hemoglobin remained stable. On oral iron replacement therapy. Qualifiers: Anemia type: iron deficiency Iron deficiency anemia type: chronic blood loss Qualified Code(s): D50.0 - Iron deficiency anemia secondary to blood loss (chronic) (4) Colonic mass Current Visit: Yes Status: Acute Assessment and plan: Follow-up outpatient with surgery if needed. Patient does not want to undergo surgery given her very poor lung function. We will refer to cancer Center as outpatient for further recommendations. (5) Diabetes Current Visit: Yes Status: Chronic Assessment and plan: Uncontrolled. We will increase long-acting insulin coverage. Also place patient on pre-meal insulin in addition to sliding scale coverage. Qualifiers: Diabetes mellitus type: type 2 Diabetes mellitus complication status: with unspecified complications Diabetes mellitus die attacher insulin use: unspecified die attacher insulin use status Qualified Code(s): E11.8 - Type 2 diabetes mellitus with unspecified complications (6) DVT prophylaxis Current Visit: Yes Status: Acute Assessment and plan: With subcutaneous heparin - Subjective Interval history: Patient is sitting up in bed. She is feeling better today but reports that she had a choking spell last night with shortness of breath. She is requesting a BiPAP for home as she feels that it improves her symptoms. Denies any fever overnight. Continues to have worsening shortness of breath with minimal exertion. No chest pain. - Constitutional Vitals: Temp Pulse Resp BP Pulse Ox 98.0 F 98 18 134/61 92 05/13/17 11:27 05/13/17 11:27 05/13/17 11:33 05/13/17 11:27 05/13/17 11:33 General appearance: Present: cooperative, A&O X 3, obese, answers questions appropriately - Eye Eye exam: Present: EOMI, PERRL, conjuntiva pink, sclera anicteric - Respiratory Respiratory exam: Present: decreased breath sounds (Decreased air entry bilaterally), prolonged expiratory phase. Absent: accessory muscle use, rales, rhonchi, wheezes - Cardiovascular Cardiovascular exam: Present: RRR, +S1, +S2. Absent: diastolic murmur, gallop, rubs, systolic murmur - GI/Abdominal GI/Abdominal exam: Present: normal bowel sounds, soft, no peritoneal signs. Absent: distended, tenderness - Extremities Exam Extremities exam: Present: warm, radial pulses palpable and symmetrical. Absent : calf tenderness, cyanotic, pedal edema - Neurological Exam Neurological exam: Present: alert, oriented X3, no focal deficits. Absent: facial droop, speech deficit - Skin Skin exam: Present: dry, intact Internal Medicine: Result - Labs CBC & Chem 7: 05/13/17 05:02 05/13/17 05:02 Labs: Short CBC 05/13/17 Range/Units 05:02 WBC 8.0 (4.3-11.1) K/mcL Hgb 8.6 L (11.5-15.4) g/dL Hct 28.6 L (35.3-44.9) % Plt Count 397 (140-400) K/mcL Neutrophils # 7.1 (1.6-8.9) K/mcL BMP 05/12/17 05/13/17 16:12 05:02 Sodium 131 L 129 L Potassium 5.2 H 5.1 H Chloride 93 L 92 L Carbon Dioxide 29 30 H BUN 24 H 24 H Creatinine 0.90 0.95 Glucose 230 H 290 H Calcium 9.3 9.1 - ABG Interpretation ABG results: ABG ABG pH 7.29 pH Units (7.32-7.45) L 05/10/17 21:25 ABG pCO2 64 mmHg (35-45) H 05/10/17 21:25 ABG pO2 73 mmHg (85-104) L 05/10/17 21:25 ABG O2 Saturation 92 % (95-98) L 05/10/17 21:25 Consult Discharge Plan - Plan Referrals: Steve Galarza MD [Primary Care Provider] -
[2017-05-13] MEDS: predniSONE 20 MG TABLET PO SCH (17:24)
[2017-05-13] MEDS: Azithromycin 250 MG TABLET PO SCH (21:22)
[2017-05-14] MEDS: Ipratropium/Albuterol Neb 3 ML IH SCH ×3 (03:43→11:06)
[2017-05-14 04:53] LABS: ABG Base Excess 7 mEq/L (-2 to 3); ABG HCO3 34 mEq/L (21-27); ABG Oxygen Saturation 79 % (95-98); ABG PCO2 61 mmHg (35-45); ABG PH 7.36 pH Units (7.32-7.45); ABG PO2 47 mmHg (85-104); ABG TCO2 36 mEq/L (20-26)
[2017-05-14] MEDS: *HR* Heparin 5,000 UNIT/ML VIAL SQ SCH (05:35)
[2017-05-14] MEDS: Budesonide/Formoterol 160/4.5 MDI IH SCH (07:43)
[2017-05-14] MEDS: Insulin LISPRO 300 UNITS/3 ML VIAL SQ SCH ×4 (07:55→11:53)
[2017-05-14] MEDS: *HR* Acetylcysteine 20% 600 MG/3 ML ORAL SYRINGE PO SCH (07:57)
[2017-05-14] MEDS: Furosemide 20 MG TABLET PO SCH (07:58)
[2017-05-14] MEDS: Aspirin Enteric Coated 81 MG Tablet PO SCH (07:58)
[2017-05-14] MEDS: Magnesium Oxide 400 MG TABLET PO SCH (07:58)
[2017-05-14] MEDS: predniSONE 20 MG TABLET PO SCH (07:58)
[2017-05-14] MEDS: FLUoxetine HCl 10 MG CAPSULE PO SCH (07:58)
[2017-05-14] MEDS: Gabapentin 300 MG CAPSULE PO SCH ×2 (07:58→14:01)
[2017-05-14] MEDS: Insulin DETEMIR 100 UNIT/ML X5UNITS SQ SCH (09:34)
[2017-05-14] MEDS: Acetaminophen 325 MG TABLET PO PRN (09:38)
[2017-05-14 10:47] VITALS: BP 150/73
[2017-05-14] MEDS ORDERED: Insulin DETEMIR 100 UNIT/ML X5UNITS SQ ONE (10:58)
--- NOTE | 2017-05-14 11:33 | Discharge Summary ---
Date of Encounter: 05/14/17 Time of Encounter: 11:30 - Discharge Diagnosis (1) Acute on chronic respiratory failure with hypoxia and hypercapnia Priority: Primary Status: Acute (2) COPD exacerbation Priority: Secondary Status: Acute (3) Anemia Priority: Secondary Status: Chronic Qualifiers: Anemia type: iron deficiency Iron deficiency anemia type: chronic blood loss Qualified Code(s): D50.0 - Iron deficiency anemia secondary to blood loss (chronic) (4) Colonic mass Priority: Secondary Status: Acute (5) Diabetes Priority: Secondary Status: Chronic Qualifiers: Diabetes mellitus type: type 2 Diabetes mellitus complication status: with unspecified complications Diabetes mellitus terminal clerk insulin use: unspecified terminal clerk insulin use status Qualified Code(s): E11.8 - Type 2 diabetes mellitus with unspecified complications (6) DVT prophylaxis Priority: Secondary Status: Acute - Discharge Medications Prescriptions: Azithromycin [Zithromax] 500 mg PO Q24H #6 tablet Ferrous Sulfate 325 mg PO DAILY@0800 #30 tablet GlipiZIDE [Glipizide Xl] 5 mg PO DAILY #30 tab.er.24 Lisinopril [Zestril] 5 mg PO DAILY #30 tablet predniSONE [PredniSONE] 10 mg PO DAILY 10 Days tablet Home Medications: Albuterol Sulfate [Albuterol Inhaler] 2 puff IH Q6H PRN 03/11/17 [History] Aspirin [Lo-Dose Aspirin EC] 81 mg PO DAILY 03/11/17 [History] Atorvastatin [Lipitor] 10 mg PO HS 03/11/17 [History] Esomeprazole Magnesium [Nexium] 40 mg PO DAILY 03/11/17 [History] FLUoxetine HCl [Fluoxetine HCl] 10 mg PO DAILY 03/11/17 [History] Furosemide [Lasix] 20 mg PO BID 03/11/17 [History] Magnesium Oxide [Magnesium] 400 mg PO DAILY 03/11/17 [History] Oxybutynin [Ditropan] 5 mg PO DAILY 03/11/17 [History] Potassium Chloride [K-Tab ER] 10 meq PO DAILY 03/11/17 [History] metFORMIN [Glucophage] 850 mg PO BIDWM 03/11/17 [History] Acetylcysteine [E-Cddwoo-z-Cysteine] 600 mg PO BID 05/11/17 [History] Fluticasone/Salmeterol [Advair 250-50 Diskus] 1 puff IH BID 10/17/17 [History] Gabapentin [Neurontin] 300 mg PO TID 05/11/17 [History] Azithromycin [Zithromax] 500 mg PO Q24H #6 tablet 05/14/17 [Rx] Ferrous Sulfate 325 mg PO DAILY@0800 #30 tablet 05/14/17 [Rx] GlipiZIDE [Glipizide Xl] 5 mg PO DAILY #30 tab.er.24 05/14/17 [Rx] Lisinopril [Zestril] 5 mg PO DAILY #30 tablet 05/14/17 [Rx] predniSONE [PredniSONE] 10 mg PO DAILY 10 Days tablet 05/14/17 [Rx] Allergies/Adverse Reactions: 3 Allergy/AdvReac Type Severity Reaction Status Date / Time Penicillins Allergy Anaphylaxis Verified 03/10/17 15:33 Date of admission: 05/12/17 13:36 Primary care physician: Steve Galarza MD Consults: 05/12/17 15:53 Consult to Occupational Therapy [CONS] Routine Comment: Evaluate, develop and implement POC Reason for Consult: hOme safety Consult to Physical Therapy [CONS] Routine Comment: Evaluate, develop and implement POC Reason for Consult: Home safety Discharging clinician: Michelle Jesus Anticipated date of discharge: 05/14/17 - Patient Status Disposition: Home, Self-Care Condition: Good Functional capacity at discharge: uses cane/walker Overall status at discharge: patient is progressing back to baseline - Discharge Instructions Instructions: Iron Supplements (By mouth), Prednisone (By mouth), Azithromycin (By mouth), Acute Respiratory Distress Syndrome (DC), Diabetes Mellitus Type 2 in Adults (DC), Chronic Obstructive Pulmonary Disease (DC) Follow Up With: Vnih Giraldo DO [Resident] - 05/20/17 2:00 pm (please follow up as schedule...) - Diet and Activity Activity: wear oxygen at all times, other (wear BiPAP while lying down or sleeping) Diet: diabetic diet, low fat, low cholesterol, low salt diet Hospital course: Ms. Guillen is a 76 year old female patient with a history of COPD and recently diagnosed colon mass presented to the ER with complaints of shortness of breath. She was diagnosed with acute on chronic respiratory failure due to COPD exacerbation and was treated with BiPAP and intravenous steroids along with bronchodilators. She was then admitted here and treatment continued for COPD exacerbation. Patient had been recommended surgery for her colon mass but she was unwilling to undergo surgery due to her poor lung function. She did improve clinically with treatment of COPD exacerbation and is currently doing much better. She underwent overnight oxygen saturation study to see she would qualify for BiPAP and per respiratory therapy has qualified for home BiPAP use. A prescription for the same has been provided to the patient. At this time, patient is clinically stable for discharge. She will follow up with her primary care provider as scheduled for further management. She will be discharged on steroid taper. Her A1c level is 7.4% and patient is only on metformin for her diabetes. I will place her on glipizide in addition to this. She will also finish short course of antibiotic treatment with azithromycin. She was evaluated by physical therapy and recommended no additional therapy at this time. - Time Spent with Patient Total time spent providing and/or coordinating discharge services: Greater than 30 minutes (40 min) - Constitutional Vitals: Temp Pulse Resp BP Pulse Ox 98.2 F 83 18 150/73 97 05/14/17 10:41 05/14/17 10:41 05/14/17 11:06 05/14/17 10:41 05/14/17 11:06 General appearance: Present: cooperative, A&O X 3, obese, answers questions appropriately - Eye Eye exam: Present: periorbital swelling (improved) - Neck Neck exam general surgery: Present: supple, trachea midline. Absent: lymphadenopathy - Respiratory Respiratory exam: Present: prolonged expiratory phase. Absent: accessory muscle use, rales, rhonchi, wheezes - Cardiovascular Cardiovascular exam: Present: RRR, +S1, +S2. Absent: diastolic murmur, gallop, rubs, systolic murmur - GI/Abdominal GI/Abdominal exam: Present: normal bowel sounds, soft, no peritoneal signs. Absent: distended, tenderness - Extremities Exam Extremities exam: Present: warm, radial pulses palpable and symmetrical. Absent : calf tenderness, cyanotic, pedal edema - Neurological Exam Neurological exam: Present: alert, oriented X3, no focal deficits. Absent: facial droop, speech deficit - Skin Skin exam: Present: dry, intact
[2017-05-14] MEDS ORDERED: FLUARIX QUAD 2017-18 36MOS UP/PF 0.5 ML SYRINGE IM ONE (11:45)
[2017-05-14] MEDS ORDERED: Insulin DETEMIR 100 UNIT/ML X5UNITS SQ SCH (21:00)
--- NOTE | 2017-05-18 19:14 | Event Note ---
Date of Encounter: 05/18/17 Time of Encounter: 16:00 Patient recently admitted to this facility 05/13/2017 for COPD exacerbation Sputum culture with Serratia marcescene. No ATB upon discharged. I spoke with asked what pharmacy preferred [facility]. Called in Levaquin 500 mg po daily x 10 days . Pt verbalized understanding
== END 2017-05-14 15:38 | disposition home or self-care (01) | DRG 190 ==
LOC: EMEROO 20:29 → 2ANU 20:29 → SUATTDRO 22:23 → 2ANU 22:47
PROVIDERS: ADMIT Internal Medicine; ATTEND Internal Medicine

== ENCOUNTER 2017-05-29 22:36 | Inpatient (IN) ==
[2017-05-29] MEDS ORDERED: methylPREDNISolone 125 MG/2 ML VIAL IVP ONE (22:39)
[2017-05-29] MEDS ORDERED: Ipratropium/Albuterol Neb 3 ML IH ONE (22:39)
--- NOTE | 2017-05-29 22:47 | Emergency Department Note ---
Disposition Clinical Impression: Healthcare-associated pneumonia Sepsis Qualifiers: Sepsis type: sepsis due to unspecified organism Qualified Code(s): A41.9 - Sepsis, unspecified organism Hypercapnic respiratory failure Qualifiers: Chronicity: acute on chronic Qualified Code(s): J96.22 - Acute and chronic respiratory failure with hypercapnia Disposition: Admitted As Inpatient Condition: Fair Referrals: Steve Galarza MD [Primary Care Provider] - Forms: ED Satisfaction Letter General Adult HPI - General Chief complaint: ED Shortness of Breath/Dyspnea Stated complaint: ANGELITO Time Seen by Provider: 05/29/17 22:39 Source: EMS Mode of arrival: EMS Limitations: altered mental status Nursing Notes Reviewed: Yes Vital Signs Reviewed: Yes - History of Present Illness HPI Narrative: 76-year-old female history of COPD, emphysema, CHF with prior admissions for respiratory failure presents to the ER due to EMS due to difficulty in breathing. History is severely limited secondary to the patient's current mental status. EMS reports that family said she has been sick for couple of days. She was recently admitted due to respiratory issues. She has a history of requiring BiPAP retention in the past. No family present to confirm history. She has initial GCS of 9 upon arrival. Patient placed on BiPAP. ABG reviewed showing hypercapnic respiratory failure. Pt Subjective Complaint: Short of breath Onset (ago): unknown Pain Scale: 0 Improves with: nothing Worsens with: nothing Treatments Prior to Arrival: none - Related Data Home Medications Medication Instructions Recorded Confirmed Albuterol Sulfate [Albuterol 2 puff IH Q6H PRN 03/11/17 05/11/17 Inhaler] Aspirin [Lo-Dose Aspirin EC] 81 mg PO DAILY 03/11/17 05/11/17 Atorvastatin [Lipitor] 10 mg PO HS 03/11/17 05/11/17 Esomeprazole Magnesium [Nexium] 40 mg PO DAILY 03/11/17 05/11/17 FLUoxetine HCl [Fluoxetine HCl] 10 mg PO DAILY 03/11/17 05/11/17 Furosemide [Lasix] 20 mg PO BID 03/11/17 05/11/17 Magnesium Oxide [Magnesium] 400 mg PO DAILY 03/11/17 05/11/17 Oxybutynin [Ditropan] 5 mg PO DAILY 03/11/17 05/11/17 Potassium Chloride [K-Tab ER] 10 meq PO DAILY 03/11/17 05/11/17 metFORMIN [Glucophage] 850 mg PO BIDWM 03/11/17 05/11/17 Acetylcysteine 600 mg PO BID 05/11/17 05/11/17 [X-Qzrksi-l-Cysteine] Fluticasone/Salmeterol [Advair 1 puff IH BID 05/11/17 05/11/17 250-50 Diskus] Gabapentin [Neurontin] 300 mg PO TID 05/11/17 05/11/17 Previous Rx's Medication Instructions Recorded Azithromycin [Zithromax] 500 mg PO Q24H #6 tablet 05/14/17 Ferrous Sulfate 325 mg PO DAILY@0800 #30 tablet 05/14/17 GlipiZIDE [Glipizide Xl] 5 mg PO DAILY #30 tab.er.24 05/14/17 Lisinopril [Zestril] 5 mg PO DAILY #30 tablet 05/14/17 predniSONE [PredniSONE] 10 mg PO DAILY 10 Days tablet 05/14/17 Allergies Allergy/AdvReac Type Severity Reaction Status Date / Time Penicillins Allergy Anaphylaxis Verified 03/10/17 15:33 Limitations: ROS unobtainable due to patients medical condition Past Medical History - Past Medical History Attestation: Yes The following information was validated with the patient. Source: old records reviewed Medical history: Reports: cancer, CHF, COPD, other Surgical history: Reports: hysterectomy, other Psychiatric history: Reports: no psych history - Social History Smoking Status: Current every day smoker Smokeless Tobacco Status: No Alcohol use: Reports: none Drug use: Reports: none Physical Exam - General Limitations: altered mental status General appearance: obtunded, in distress - Head Head exam: atraumatic - Eye Eye exam: Present: normal appearance - ENT ENT exam: normal exam - Neck Neck exam: Present: normal inspection - Chest Chest inspection: Present: normal inspection, symmetric chest wall rise - Respiratory Respiratory exam: Present: wheezes (Bilateral end expiratory wheezing with diminished breath sounds.) - Cardiovascular Cardiovascular exam: Present: regular rate, normal rhythm, normal heart sounds - Abdominal Exam Abdominal exam: Present: soft. Absent: distention, guarding, rigidity - Extremities Exam Extremities exam: Present: normal inspection - Expanded Upper Extremity Exam Shoulder exam: Present: normal inspection Arm exam: Present: normal inspection Elbow exam: Present: normal inspection Forearm/Wrist exam: Present: normal inspection Hand exam: Present: normal inspection - Expanded Lower Extremity Exam Hip/Pelvis exam: Present: normal inspection Upper leg exam: Present: normal inspection Knee exam: Present: normal inspection Lower leg exam: Present: normal inspection Ankle exam: Present: normal inspection Foot/toe exam: Present: normal inspection - Neurological Exam Neurological exam: Present: other - Expanded Neurological Exam Coma Scale Eye Opening: To Pain Coma Scale Motor Response: Withdraws to Pain Coma Scale Verbal Response: Inappropriate Coma Scale Total: 9 - Skin Skin exam: Present: warm, dry, intact Course Course Narrative: Patient seen and examined. Respiratory therapy paged to place the patient on BiPAP. Reviewed her prior chart showing multiple admissions for respiratory failure requiring and IPPV. We will obtain a head CT as well as EKG, chest x- ray and labs and urinalysis. Patient will require admission for acute on chronic respiratory failure. Vital Signs Temperature 98.3 F 05/29/17 22:37 Pulse Rate 99 05/29/17 22:37 Respiratory Rate 32 05/29/17 22:37 Blood Pressure 150/72 05/29/17 22:37 O2 Sat by Pulse Oximetry 96 05/29/17 22:37 Temperature 98.3 F 05/29/17 22:37 Pulse Rate 90 05/30/17 00:59 Respiratory Rate 20 05/30/17 00:59 Blood Pressure 154/70 05/30/17 00:59 O2 Sat by Pulse Oximetry 95 05/30/17 00:59 Oxygen Delivery Oxygen Delivery Bipap Medical Decision Making - [facility] Narrative Medical decision making narrative: 76-year-old male presents to the ER due to respiratory failure. History of this in the past. History of COPD and CHF. Initial GCS of 9 here. Patient placed on BiPAP with improvement of her mental status and respiratory function. Found to be hypercapnic respiratory failure. She also has a right middle lobe pneumonia on x-ray. She was recently hospitalized we will cover for healthcare associated pneumonia. She has an elevated white count here with a normal lactate. Patient given lincomycin, aztreonam and Levaquin. Admitted to the hospitalist service. - Lab Data Lab results reviewed: Yes I reviewed the patient's lab results. Result diagrams: 05/29/17 23:02 05/29/17 23:02 Lab Results 11/04/17 11/04/17 11/04/17 Range/Units 23:02 23:02 23:02 WBC 15.4 H (4.3-11.1) K/mcL RBC 4.05 (3.82-4.97) M/mcL Hgb 9.7 L (11.5-15.4) g/dL Hct 34.2 L (35.3-44.9) % MCV 84.4 (83.0-100.0) fL MCH 24.0 L (28.0-33.3) pg MCHC 28.4 L (31.6-35.5) g/dL RDW 19.2 H (11.5-14.5) % Plt Count 279 (140-400) K/mcL MPV 9.6 (9.4-12.4) fL Immature Gran % 0.6 (0-4) % Seg Neutrophils % 82.9 % Lymphocytes % 10.4 % Monocytes % 4.3 % Eosinophils % 1.6 % Basophils % 0.2 % Neutrophils # 12.8 H (1.6-8.9) K/mcL Lymphocytes # 1.6 (0.6-4.6) K/mcL Monocytes # 0.7 (0.0-1.3) K/mcL Eosinophils # 0.3 (0.0-0.6) K/mcL Basophils # 0.0 (0.0-0.2) K/mcL Platelet Estimate Normal (Normal) Hypochromasia Present A (Not Present) PT 11.3 (9.4-12.1) Seconds INR 1.1 APTT 25.5 L (26.0-36.0) Seconds ABG pH (7.32-7.45) pH Units ABG pCO2 (35-45) mmHg ABG pO2 (85-104) mmHg ABG HCO3 (21-27) mEq/L ABG Total CO2 (20-26) mEq/L ABG O2 Saturation (95-98) % ABG Base Excess (-2 to 3) mEq/L Sodium 137 (136-145) mEq/L Potassium 4.5 (3.5-4.5) mEq/L Chloride 97 L (98-109) mEq/L Carbon Dioxide 27 (19-29) mEq/L BUN 15 (7-20) mg/dL Creatinine 0.90 (0.57-1.11) mg/dL Est GFR ( Amer) > 60 (> 60) Est GFR (Non-Af Amer) > 60 (> 60) BUN/Creatinine Ratio 17 (6-26) Glucose 200 H (70-99) mg/dL Calculated Osmolality 290 (280-300) Lactic Acid (0.5-2.2) mmol/L Calcium 8.7 (8.6-10.8) mg/dL B-Natriuretic Peptide (0-100) pg/mL Urine Color (Yellow) Urine Clarity (Clear) Urine pH (5.0-8.0) pH Units Ur Specific [place] (1.010-1.025) Urine Protein (Neg-Trace) mg/dL Urine Glucose (UA) (Normal) mg/dL Urine Clinitest (Negative) Urine Ketones (Negative) mg/dL Urine Blood (Negative) Urine Nitrite (Negative) Urine Bilirubin (Negative) Urine Urobilinogen (Normal) mg/dL Ur Leukocyte Esterase (Negative) Urine Microscopic RBC (0-3) per hpf Urine Microscopic WBC (0-3) per hpf Urine Bacteria (None-Few) per hpf Ur Culture Indicated? (NO) Person Notif of Crit 05/29/17 05/29/17 05/29/17 Range/Units 23:02 23:02 23:06 WBC (4.3-11.1) K/mcL RBC (3.82-4.97) M/mcL Hgb (11.5-15.4) g/dL Hct (35.3-44.9) % MCV (83.0-100.0) fL MCH (28.0-33.3) pg MCHC (31.6-35.5) g/dL RDW (11.5-14.5) % Plt Count (140-400) K/mcL MPV (9.4-12.4) fL Immature Gran % (0-4) % Seg Neutrophils % % Lymphocytes % % Monocytes % % Eosinophils % % Basophils % % Neutrophils # (1.6-8.9) K/mcL Lymphocytes # (0.6-4.6) K/mcL Monocytes # (0.0-1.3) K/mcL Eosinophils # (0.0-0.6) K/mcL Basophils # (0.0-0.2) K/mcL Platelet Estimate (Normal) Hypochromasia (Not Present) PT (9.4-12.1) Seconds INR APTT (26.0-36.0) Seconds ABG pH 7.20 L* (7.32-7.45) pH Units ABG pCO2 91 H* (35-45) mmHg ABG pO2 275 H (85-104) mmHg ABG HCO3 35 H (21-27) mEq/L ABG Total CO2 38 H (20-26) mEq/L ABG O2 Saturation 100 H (95-98) % ABG Base Excess 5 H (-2 to 3) mEq/L Sodium (136-145) mEq/L Potassium (3.5-4.5) mEq/L Chloride (98-109) mEq/L Carbon Dioxide (19-29) mEq/L BUN (7-20) mg/dL Creatinine (0.57-1.11) mg/dL Est GFR ( Amer) (> 60) Est GFR (Non-Af Amer) (> 60) BUN/Creatinine Ratio (6-26) Glucose (70-99) mg/dL Calculated Osmolality (280-300) Lactic Acid 0.9 (0.5-2.2) mmol/L Calcium (8.6-10.8) mg/dL B-Natriuretic Peptide 387 H (0-100) pg/mL Urine Color (Yellow) Urine Clarity (Clear) Urine pH (5.0-8.0) pH Units Ur Specific [place] (1.010-1.025) Urine Protein (Neg-Trace) mg/dL Urine Glucose (UA) (Normal) mg/dL Urine Clinitest (Negative) Urine Ketones (Negative) mg/dL Urine Blood (Negative) Urine Nitrite (Negative) Urine Bilirubin (Negative) Urine Urobilinogen (Normal) mg/dL Ur Leukocyte Esterase (Negative) Urine Microscopic RBC (0-3) per hpf Urine Microscopic WBC (0-3) per hpf Urine Bacteria (None-Few) per hpf Ur Culture Indicated? (NO) Person Notif of Carina LLANOSD 05/30/17 Range/Units 00:19 WBC (4.3-11.1) K/mcL RBC (3.82-4.97) M/mcL Hgb (11.5-15.4) g/dL Hct (35.3-44.9) % MCV (83.0-100.0) fL MCH (28.0-33.3) pg MCHC (31.6-35.5) g/dL RDW (11.5-14.5) % Plt Count (140-400) K/mcL MPV (9.4-12.4) fL Immature Gran % (0-4) % Seg Neutrophils % % Lymphocytes % % Monocytes % % Eosinophils % % Basophils % % Neutrophils # (1.6-8.9) K/mcL Lymphocytes # (0.6-4.6) K/mcL Monocytes # (0.0-1.3) K/mcL Eosinophils # (0.0-0.6) K/mcL Basophils # (0.0-0.2) K/mcL Platelet Estimate (Normal) Hypochromasia (Not Present) PT (9.4-12.1) Seconds INR APTT (26.0-36.0) Seconds ABG pH (7.32-7.45) pH Units ABG pCO2 (35-45) mmHg ABG pO2 (85-104) mmHg ABG HCO3 (21-27) mEq/L ABG Total CO2 (20-26) mEq/L ABG O2 Saturation (95-98) % ABG Base Excess (-2 to 3) mEq/L Sodium (136-145) mEq/L Potassium (3.5-4.5) mEq/L Chloride (98-109) mEq/L Carbon Dioxide (19-29) mEq/L BUN (7-20) mg/dL Creatinine (0.57-1.11) mg/dL Est GFR ( Amer) (> 60) Est GFR (Non-Af Amer) (> 60) BUN/Creatinine Ratio (6-26) Glucose (70-99) mg/dL Calculated Osmolality (280-300) Lactic Acid (0.5-2.2) mmol/L Calcium (8.6-10.8) mg/dL B-Natriuretic Peptide (0-100) pg/mL Urine Color Yellow (Yellow) Urine Clarity Clear (Clear) Urine pH 5.5 (5.0-8.0) pH Units Ur Specific [place] 1.024 (1.010-1.025) Urine Protein 100 H (Neg-Trace) mg/dL Urine Glucose (UA) Normal (Normal) mg/dL Urine Clinitest (Negative) Urine Ketones Negative (Negative) mg/dL Urine Blood Negative (Negative) Urine Nitrite Negative (Negative) Urine Bilirubin Negative (Negative) Urine Urobilinogen Normal (Normal) mg/dL Ur Leukocyte Esterase Negative (Negative) Urine Microscopic RBC 0-3 (0-3) per hpf Urine Microscopic WBC 0-3 (0-3) per hpf Urine Bacteria Few (None-Few) per hpf Ur Culture Indicated? NO (NO) Person Notif of Crit - Radiology Data Radiology results reviewed: Yes I reviewed the patient's radiology results. Chest X-Ray 05/29/17 22:39 IMPRESSION: Acute right middle lobe pneumonia. Radiographic follow-up to resolution is recommended. D/ / Allen Danielle MD / Allen Danielle MD Interpreting Provider: Allen Danielle MD Head CT 05/29/17 22:46 IMPRESSION: Somewhat limited exam by motion artifact. No acute findings. D/ / Jeannette Ricci MD / Jeannette Ricci MD Interpreting Provider: Jeannette Ricci MD - EKG Data EKG #1 EKG attestation: Yes I reviewed and interpreted this EKG. EKG results narrative: EKG demonstrates sinus rhythm with PACs with a rate of 99 bpm. Normal axis. Normal intervals. Normal R-wave progression. No gross ST elevations or depressions. No acute ischemic findings. Critical Care Time Critical Care Time: Yes Total Critical Care Time: 45 Attestation: Critical care performed: Time is exclusive of separately billable procedures. Time includes: direct patient care, patient reassessment, coordination of patient care, interpretation of data (laboratory data, radiology data, and respiratory data), review of patient's medical records, medical consultation and documentation of patient care. Procedures included in critical care time: Procedures excluded from critical care time: S.B.A.R. - S.B.A.R. Situation: Demographics, MOA Background: Presenting Complaint, Relevant PMH, Meds, & Allergies Assessment: Course and respsone to treatment, Exam Concerns, Patient/Family Expectation, Pertinant Lab Results Recommendation: Barrier(s) to disposition, Recommendation based on pending studies, treatments, or consults S.B.A.R. Report Given to: Dr. Nixon Attestation Statement - Attestation Attestation: I, Geovanni Peace DO, examined this patient [id number] and my medical decision-making was reviewed with Dr. Santosh Reddy, Resident Physician. I agree with the documented findings, disposition and treatment plan as described except to the extent set forth below. Please see my progress notes for details. 76-year-old female presents by EMS for evaluation of altered mentation, shortness of breath, hypoxia. She has long-standing history of COPD and emphysema. She has presented several times emergency room for similar issue. Physical exam patient is slightly obtunded she does not open her eyes initially to verbal stimulus. She does respond to painful stimuli. She does not currently follow commands. Concern is noted for immediate intubation. Patient will be attempted with BiPAP and oxygenation along with breathing treatments here. ABG and laboratory workup to be completed for what appears to be possible sepsis along with hypoxia and hypercarbia causing altered mentation. Patient is otherwise critically ill at this point. Differentiation between respiratory-related sources as well as infectious etiology determined. Vital signs reviewed and patient is tachypneic and hypoxic. We will continue to monitor his treatment course is completed. See detailed documentation of physical exam, medical intervention, medical decision-making and critical care and resident physician's note. Patient will most likely definitively need admission to the hospital for further evaluation treatment. Patient is otherwise stable but has potential for clinical decompensation. 0050 Patient found to have right middle lobe pneumonia. BiPAP has been applied and patient is ventilating more appropriately. Initial ABG does show hypercarbic respiratory acidosis. Patient will have repeat ABG at this time is admitted for definitive management. Blood cultures and antibiotics started this time for hospital-acquired pneumonia. Patient is otherwise stable at this point. To monitor her mental admission process is completed. Patient has conversational response at this time. When standing at the bedside you can say her name and she will open her eyes and look at you this point. Mental status is progressively getting better with respirations. Admission process completed at this time.
[2017-05-29 23:12] LABS: Monocytes % 4.3 %
[2017-05-29 23:13] LABS: Basophils % 0.2 %; Eosinophils # 0.3 K/mcL (0.0-0.6); Eosinophils % 1.6 %; Hematocrit 34.2 % (35.3-44.9); Hemoglobin 9.7 g/dL (11.5-15.4); Immature Granulocytes % 0.6 % (0-4); Lymphocytes # 1.6 K/mcL (0.6-4.6); Lymphocytes % 10.4 %; Mean Corpuscular HGB Conc 28.4 g/dL (31.6-35.5); Mean Corpuscular Volume 84.4 fL (83.0-100.0); Mean Platelet Volume 9.6 fL (9.4-12.4); Monocytes # 0.7 K/mcL (0.0-1.3); Neutrophils # 12.8 K/mcL (1.6-8.9); Platelet Count 279 K/mcL (140-400); Red Blood Count 4.05 M/mcL (3.82-4.97); Red Cell Distribution Width 19.2 % (11.5-14.5); Segmented Neutrophils % 82.9 %
[2017-05-29 23:14] LABS: ABG Base Excess 5 mEq/L (-2 to 3); ABG HCO3 35 mEq/L (21-27); ABG Oxygen Saturation 100 % (95-98); ABG PCO2 91 mmHg (35-45); ABG PO2 275 mmHg (85-104); ABG TCO2 38 mEq/L (20-26)
[2017-05-29 23:16] LABS: INR 1.1; Prothrombin Time 11.3 Seconds (9.4-12.1)
[2017-05-29 23:19] LABS: Activated Partial Thrombo Time 25.5 Seconds (26.0-36.0)
[2017-05-29 23:25] LABS: BUN/Creatinine Ratio 17 (6-26); Blood Urea Nitrogen 15 mg/dL (7-20); Calcium 8.7 mg/dL (8.6-10.8); Carbon Dioxide 27 mEq/L (19-29); Chloride 97 mEq/L (98-109); Glucose 200 mg/dL (70-99); Osmolality,Calculated 290 (280-300); Potassium 4.5 mEq/L (3.5-4.5); Sodium 137 mEq/L (136-145); eGFR For African Americans > 60 (> 60); eGFR For Non-African Americans > 60 (> 60)
[2017-05-29 23:34] LABS: Hypochromasia Present (Not Present); Platelet Estimate Normal (Normal)
[2017-05-30] MEDS ORDERED: Vancomycin 1,250 MG in D5% in Water 250 ML IVPB ONE (00:41)
[2017-05-30] MEDS ORDERED: Levofloxacin 750 MG/150 ML 750 MG/150 ML BAG IVPB ONE (00:41)
[2017-05-30] MEDS ORDERED: Aztreonam 2,000 MG in D5% in Water (Mini-Bag+) 100 ML IVPB ONE (00:42)
[2017-05-30 00:43] LABS: Color,Urine Yellow (Yellow)
[2017-05-30 00:44] LABS: Bilirubin,Urine Negative (Negative); Blood,Urine Negative (Negative); Clarity,Urine Clear (Clear); Glucose,Urine (UA) Normal (Normal); Ketones,Urine Negative (Negative); Nitrite,Urine Negative (Negative); PH,Urine 5.5 pH Units (5.0-8.0); Protein,Urine 100 mg/dL (Neg-Trace); Specific Gravity,Urine 1.024 (1.010-1.025); Urobilinogen,Urine Normal (Normal)
[2017-05-30 00:45] LABS: Leukocyte Esterase,Urine Negative (Negative)
[2017-05-30 00:46] LABS: Bacteria,Urine Few per hpf (None-Few); RBC,Urine 0-3 per hpf (0-3); WBC,Urine 0-3 per hpf (0-3)
[2017-05-30] MEDS ORDERED: Aztreonam 2,000 MG in Water for inj. (sterile) 20 ML IVP ONE ×2 (01:00→02:45)
[2017-05-30 01:35] LABS: ABG Base Excess 5 mEq/L (-2 to 3); ABG HCO3 35 mEq/L (21-27); ABG Oxygen Saturation 94 % (95-98); ABG PCO2 86 mmHg (35-45); ABG PH 7.22 pH Units (7.32-7.45); ABG PO2 88 mmHg (85-104); ABG TCO2 38 mEq/L (20-26)
[2017-05-30] MEDS ORDERED: D5% in Water 1,000 ML IVC PRN (03:48)
[2017-05-30] MEDS ORDERED: Dextrose Gel 15 GM PO PRN ×2 (03:48)
[2017-05-30] MEDS ORDERED: Ondansetron 4 MG/2 ML VIAL IVP PRN (03:48)
[2017-05-30] MEDS ORDERED: Acetaminophen 325 MG TABLET PO PRN (03:48)
[2017-05-30] MEDS ORDERED: Albuterol 2.5 MG/3 ML NEBULIZER IH PRN (03:48)
[2017-05-30] MEDS ORDERED: Naloxone 0.4 MG/ML INJ IVP PRN (03:48)
[2017-05-30] MEDS ORDERED: *HR* Dextrose 50 % in Water (Syg) 50 ML SYRINGE IVP PRN (03:48)
[2017-05-30] MEDS ORDERED: Vancomycin 1,250 MG in D5% in Water 250 ML IVPB SCH (04:00)
[2017-05-30] MEDS ORDERED: Ipratropium/Albuterol Neb 3 ML IH SCH (04:00)
[2017-05-30 04:35] LABS: ABG Base Excess 8 mEq/L (-2 to 3); ABG HCO3 37 mEq/L (21-27); ABG Oxygen Saturation 95 % (95-98); ABG PCO2 79 mmHg (35-45); ABG PH 7.28 pH Units (7.32-7.45); ABG PO2 88 mmHg (85-104); ABG TCO2 39 mEq/L (20-26); Blood Gas Modality NIV
--- NOTE | 2017-05-30 05:19 | Internal Med History&Physical ---
Date of Encounter: 05/30/17 Time of Encounter: 03:20 Assessment and Plan (1) Acute respiratory failure with hypoxia and hypercarbia Current visit: Yes Status: Acute 1. Continue BiPap and recheck ABG later this morning. 2. I ordered a follow up ABG at 4:30, and it is improving with Bipap. 3. Wean oxygen as able to maintain O2 Sats 88-92%. (2) COPD exacerbation Current visit: No Status: Acute 1. Will treat with aggressive IV steroids, aerosols, antibiotics, and supportive respiratory measures. 2. Aerosols are scheduled DuoNebs and PRN albuterol. 3. Steroids will need to be slowly weaned back to her baseline chronic home dose. (3) Healthcare-associated pneumonia Current visit: Yes Status: Acute 1. Blood cultures have been obtained. 2. I will order sputum culture and try to collect. 3. IV antibiotics, including Vancomycin given recent hospital stay. (4) DVT prophylaxis Current visit: No Status: Acute 1. Heparin SQ. Internal Medicine - H&P: HPI Chief complaint: SOB; altered mental status Admitted From: Emergency Dept Plans for Post Hospital Care: Home History of present illness: Ms. Guillen is a 76 year old female who presented to the ER this evening with complaints of shortness of breath, depressed mental status, confusion, and respiratory distress/failure. Patient was placed on BiPAP right away and had labs and blood gases drawn. Because of her depressed mental status and respiratory distress and initial failed response to BiPAP, ER attempted to intubate patient. However, it was then that the patient woke up and responded to their maneuvers. She therefore was left on BiPAP and then admitted to hospitalist service. Upon my assessment of the patient, she is sleeping on BiPAP. She is easily arousable, and she answers my questions "yes and no" for the most part with BiPAP mask on her face. There are no family members present. She has been ill for the last several days to 1 week. She has been coughing, wheezing, and running fevers at home. She was recently hospitalized for respiratory failure from COPD. She denies any chest pain, vomiting, or diarrhea. Her biggest issue has been breathing difficulties and fevers. Workup in the ER revealed patient to have a right middle lobe pneumonia. Past Med Surg Social Fam HX - Past Medical History Source: patient, old records reviewed Medical history: cancer, CHF, COPD, other Psychiatric history: no psych history - Past Surgical History Surgical History: hysterectomy, other - Social History Smoking Status: Current every day smoker Smokeless Tobacco Status: No Alcohol use: none Drug use: none Recent Out of Country Travel Within the Last 8 Weeks: No - Family History Mother Family Member Ethnicity: Non- Living Status: Hx Family Cardiac Disorders: Yes (HTN) Hx Family Respiratory Disorders: No Hx Family Cancer: No Hx Family GI Disorders: No Hx Family Endocrine Disorder: Yes (DM) Hx Family Neuromuscular Disorders: No Hx Family Neurologic Disorders: No Hx Family HEENT Disorders: No Hx Family Autoimmune Disorders: No Father Family Member Ethnicity: Non- Living Status: Hx Family Cancer: Yes (Unknown) Sister Family Member Ethnicity: Non- Living Status: Hx Family Cancer: Yes (Lung) Internal Medicine - H&P: Meds Albuterol Sulfate [Albuterol Inhaler] 2 puff IH Q6H PRN 03/11/17 [History] Aspirin [Lo-Dose Aspirin EC] 81 mg PO DAILY 03/11/17 [History] Atorvastatin [Lipitor] 10 mg PO HS 03/11/17 [History] Esomeprazole Magnesium [Nexium] 40 mg PO DAILY 03/11/17 [History] FLUoxetine HCl [Fluoxetine HCl] 10 mg PO DAILY 03/11/17 [History] Furosemide [Lasix] 20 mg PO BID 03/11/17 [History] Magnesium Oxide [Magnesium] 400 mg PO DAILY 03/11/17 [History] Oxybutynin [Ditropan] 5 mg PO DAILY 03/11/17 [History] Potassium Chloride [K-Tab ER] 10 meq PO DAILY 03/11/17 [History] metFORMIN [Glucophage] 850 mg PO BIDWM 03/11/17 [History] Acetylcysteine [E-Htqbpo-t-Cysteine] 600 mg PO BID 05/11/17 [History] Fluticasone/Salmeterol [Advair 250-50 Diskus] 1 puff IH BID 05/11/17 [History] Gabapentin [Neurontin] 300 mg PO TID 05/11/17 [History] Azithromycin [Zithromax] 500 mg PO Q24H #6 tablet 05/14/17 [Rx] Ferrous Sulfate 325 mg PO DAILY@0800 #30 tablet 05/14/17 [Rx] GlipiZIDE [Glipizide Xl] 5 mg PO DAILY #30 tab.er.24 05/14/17 [Rx] Lisinopril [Zestril] 5 mg PO DAILY #30 tablet 05/14/17 [Rx] predniSONE [PredniSONE] 10 mg PO DAILY 10 Days tablet 05/14/17 [Rx] 3 Allergy/AdvReac Type Severity Reaction Status Date / Time Penicillins Allergy Anaphylaxis Verified 03/10/17 15:33 - Constitutional Constitutional: chills, fever(s), no night sweats - EENT Eyes: no blurry vision, no change in vision Ears: no ear pain, no tinnitus Nose, mouth and throat: no nasal congestion, no sinus pain, no sinus pressure - Cardiovascular Cardiovascular ROS IM: chest pain, diaphoresis, dyspnea - Respiratory Respiratory: cough, dyspnea, wheezing, chest congestion, excessive phlegm production, change in phlegm color, no hemoptysis - Gastrointestinal Gastrointestinal: no diarrhea, no vomiting - Genitourinary Genitourinary: no dysuria, no flank pain, no hematuria - Musculoskeletal Musculoskeletal ROS IM: no back pain - Integumentary Integumentary IM: no rash, no jaundice - Neurological Neurological ROS: behavioral changes, no focal weakness, no frequent falls, no headache(s) - Psychiatric Psychiatric: no anxiety, no depression - Endocrine Endocrine IM: no polydipsia, no polyuria - Allergic/Immunologic Allergic/Immunologic: no GI upset with certain foods - Constitutional Vitals: Temp Pulse Resp BP Pulse Ox 98.3 F 92 21 123/53 98 05/29/17 22:37 05/30/17 04:03 05/30/17 04:26 05/30/17 04:26 05/30/17 04:26 General appearance: Present: cooperative, disheveled, A&O X 3, pleasant, answers questions appropriately Exam: sleeping on BiPap; easily awakens and responds appropriately - Head Head exam: Present: atraumatic, normal inspection - Expanded Head Exam Head exam expanded: Absent: abrasion, contusion, general tenderness - Eye Eye exam: Present: EOMI, normal appearance, PERRL. Absent: scleral icterus Pupils: Present: normal accommodation - ENT ENT exam: Present: mucous membranes dry, normal exam - Neck Neck exam general surgery: Present: full ROM, supple, trachea midline. Absent: lymphadenopathy, tenderness, nuchal rigidity - Respiratory Respiratory exam: Present: accessory muscle use, prolonged expiratory phase, rales, respiratory distress (mild), rhonchi, wheezes. Absent: chest wall tenderness, CTAB - Cardiovascular Cardiovascular exam: Present: diastolic murmur, RRR, +S1, +S2. Absent: distant heart sounds, JVD, systolic murmur - GI/Abdominal GI/Abdominal exam: Present: normal bowel sounds, soft. Absent: hepatomegaly, rebound, splenomegaly, tenderness - Extremities Exam Extremities exam: Present: normal capillary refill, warm, radial pulses palpable and symmetrical. Absent: calf tenderness, joint swelling, pedal edema , tenderness - Back Exam Back exam: Absent: CVA tenderness (L), CVA tenderness (R) - Neurological Exam Neurological exam: Present: alert, CN II-XII intact, oriented X3, no focal deficits - Psychiatric Psychiatric exam: Present: normal affect, normal mood - Skin Skin exam: Present: dry, warm. Absent: rash Internal Med - H&P Results - Labs CBC & Chem 7: 05/29/17 23:02 05/29/17 23:02 Labs: Cardiac Enzymes 05/30/17 Range/Units Unknown Troponin I 0.02 (0-0.03) ng/mL - ABG Interpretation Interpretation: ABG interpreted by me ABG results: 05/30/17 04:30 ABG pH 7.28 L ABG pCO2 79 H* ABG pO2 88 ABG HCO3 37 H ABG Total CO2 39 H ABG O2 Saturation 95 ABG Base Excess 8 H Interpretation: metabolic acidosis - EKG Data -: EKG Interpreted by Myself - EKG Data Prior EKG available for review: no EKG comments: 05/30/17 05:26 NSR with PAC's - Diagnostic Studies Chest x-ray Status: image reviewed by me (RML infiltrate)
[2017-05-30 05:37] LABS: Hemoglobin 9.5 g/dL (11.5-15.4); Immature Granulocytes % 0.6 % (0-4); Lymphocytes # 0.2 K/mcL (0.6-4.6); Lymphocytes % 2.2 %; Mean Corpuscular HGB Conc 27.9 g/dL (31.6-35.5); Mean Corpuscular Hemoglobin 23.6 pg (28.0-33.3); Mean Corpuscular Volume 84.4 fL (83.0-100.0); Mean Platelet Volume 9.5 fL (9.4-12.4); Monocytes % 0.2 %; Neutrophils # 9.6 K/mcL (1.6-8.9); Platelet Count 292 K/mcL (140-400); Red Blood Count 4.03 M/mcL (3.82-4.97); Red Cell Distribution Width 18.9 % (11.5-14.5)
[2017-05-30 05:53] LABS: Alanine Aminotransferase 11 Units/L (0-55); Albumin 2.9 g/dL (3.5-5.0); Albumin/Globulin Ratio 0.8 (1.1-2.2); Alkaline Phosphatase 74 Units/L (38-126); Aspartate Amino Transferase 11 Units/L (5-34); BUN/Creatinine Ratio 17 (6-26); Bilirubin,Total 0.4 mg/dL (0.2-1.2); Blood Urea Nitrogen 15 mg/dL (7-20); Calcium 8.5 mg/dL (8.6-10.8); Carbon Dioxide 34 mEq/L (19-29); Chloride 96 mEq/L (98-109); Globulin 3.7 g/dL (2.4-3.5); Glucose 229 mg/dL (70-99); Osmolality,Calculated 288 (280-300); Potassium 5.4 mEq/L (3.5-4.5); Sodium 135 mEq/L (136-145); Total Protein 6.6 g/dL (6.0-8.3); eGFR For African Americans > 60 (> 60); eGFR For Non-African Americans > 60 (> 60)
[2017-05-30 05:59] LABS: Hypochromasia Present (Not Present); Platelet Estimate Normal (Normal)
[2017-05-30] MEDS ORDERED: methylPREDNISolone 125 MG/2 ML VIAL IVP SCH ×2 (06:00→18:00)
[2017-05-30] MEDS: *HR* Heparin 5,000 UNIT/ML VIAL SQ SCH ×3 (06:05→21:49)
[2017-05-30] MEDS: Insulin LISPRO 300 UNITS/3 ML VIAL SQ SCH ×3 (06:05→17:07)
[2017-05-30] MEDS ORDERED: MethylPREDNISolone 40 MG/ML VIAL IVP SCH (08:07)
[2017-05-30] MEDS ORDERED: Cefepime HCl 1,000 MG in D5% in Water (Mini-Bag+) 100 ML IVPB SCH (08:07)
[2017-05-30] MEDS: 0.9 % Sodium Chloride 1,000 ML IVC SCH ×2 (08:07→11:48)
--- NOTE | 2017-05-30 08:12 | Internal Med Progress Note ---
Date of Encounter: 05/30/17 Time of Encounter: 08:08 - Assessment and plan (1) Sepsis Current Visit: Yes Status: Acute Assessment and plan: Pt did meet mils sepsis / SIRS criteria with elevated WBC, tachycardia, source of as PNA cont empirical abx WBC started trending down Qualifiers: Sepsis type: sepsis due to unspecified organism Qualified Code(s): A41.9 - Sepsis, unspecified organism (2) Acute on chronic respiratory failure with hypoxia and hypercapnia Current Visit: No Status: Acute Assessment and plan: Due to PNA and COPD exacerbation Cont BiPAP.. Cont f/u with frequent ABG Reviewed ABG from this morning.. Ph 7.28 PCo2- 79 Will leave her on BiPAP continuously for next 24 hrs (3) COPD exacerbation Current Visit: No Status: Acute Assessment and plan: Cont high dose IV steroids Duoneb and O2 Cont BiPAP (4) Healthcare-associated pneumonia Current Visit: Yes Status: Acute Assessment and plan: Will start her on broad spec abx Cefepime, Vancomycin and Levaquin will f/u on blood cx, sputum cx cont close monitoring (5) Diabetes Current Visit: No Status: Chronic Assessment and plan: Will place her on ISS + Levemir Qualifiers: Diabetes mellitus type: type 2 Diabetes mellitus complication status: with unspecified complications Diabetes mellitus correction insulin use: unspecified correction insulin use status Qualified Code(s): E11.8 - Type 2 diabetes mellitus with unspecified complications (6) Diastolic CHF, chronic Current Visit: Yes Status: Acute Assessment and plan: Not in exacerbation will resume all home meds (7) HTN (hypertension) Current Visit: Yes Status: Acute Assessment and plan: stable will resume all home meds Qualifiers: Hypertension type: essential hypertension Qualified Code(s): I10 - Essential (primary) hypertension (8) Tobacco dependence Current Visit: Yes Status: Acute Assessment and plan: counseled to quit smoking on nicotine patch - Subjective Interval history: This is a 76 y/o F with known PMH of HTN, Diastolic CHF, COPD, Chronic hypoxic and hypercapneic resp failure pt, still smokes 1 PPD who was recently discharged from this hosital with COPD exacerbation resp failure now she presented to ER with worsening SOB and severe respiratory fialure. Pt was laced on BiPAP, so far she has been tolerating BiPAP well. Her PCo2 started trending down slowly. She is alert, awake and O x3. Following all the commands. Denied any CP. Still in severe SOB / MUÑOZ - Constitutional Vitals: Temp Pulse Resp BP Pulse Ox 98.1 F 85 23 135/66 99 05/30/17 07:30 05/30/17 07:30 05/30/17 07:30 05/30/17 07:30 05/30/17 07:30 General appearance: Present: mild distress, A&O X 3, answers questions appropriately - Head Head exam: Present: atraumatic, normal inspection - Neck Neck exam general surgery: Present: supple - Respiratory Respiratory exam: Present: decreased breath sounds, respiratory distress, wheezes (severe diffuse), tachypnea. Absent: rales, rhonchi - Cardiovascular Cardiovascular exam: Present: RRR, +S1, +S2. Absent: systolic murmur - GI/Abdominal GI/Abdominal exam: Present: distended, normal bowel sounds, soft. Absent: rebound, rigid, tenderness - Extremities Exam Extremities exam: Absent: calf tenderness, pedal edema, tenderness - Neurological Exam Neurological exam: Present: alert, oriented X3 - Psychiatric Psychiatric exam: Present: anxious Internal Medicine: Result - Labs CBC & Chem 7: 05/30/17 05:13 05/30/17 05:13 Labs: Short CBC 05/30/17 Range/Units 05:13 WBC 9.9 (4.3-11.1) K/mcL Hgb 9.5 L (11.5-15.4) g/dL Hct 34.0 L (35.3-44.9) % Plt Count 292 (140-400) K/mcL Neutrophils # 9.6 H (1.6-8.9) K/mcL BMP 05/30/17 05:13 Sodium 135 L Potassium 5.4 H Chloride 96 L Carbon Dioxide 34 H BUN 15 Creatinine 0.88 Glucose 229 H Calcium 8.5 L Cardiac Enzymes 05/30/17 Range/Units Unknown Troponin I 0.02 (0-0.03) ng/mL Liver Function 05/30/17 Range/Units 05:13 Total Bilirubin 0.4 (0.2-1.2) mg/dL AST 11 (5-34) Units/L ALT 11 (0-55) Units/L Alkaline Phosphatase 74 (38-126) Units/L Albumin 2.9 L (3.5-5.0) g/dL - ABG Interpretation ABG results: ABG ABG pH 7.28 pH Units (7.32-7.45) L 05/30/17 04:30 ABG pCO2 79 mmHg (35-45) H* 05/30/17 04:30 ABG pO2 88 mmHg (85-104) 05/30/17 04:30 ABG O2 Saturation 95 % (95-98) 05/30/17 04:30 PT/INR, D-dimer PT 11.3 Seconds (9.4-12.1) 05/29/17 23:02 Consult Discharge Plan - Plan Referrals: Steve Galarza MD [Primary Care Provider] -
[2017-05-30 08:31] LABS: ABG Base Excess 7 mEq/L (-2 to 3); ABG HCO3 37 mEq/L (21-27); ABG Oxygen Saturation 96 % (95-98); ABG PCO2 87 mmHg (35-45); ABG PH 7.24 pH Units (7.32-7.45); ABG PO2 103 mmHg (85-104); ABG TCO2 39 mEq/L (20-26)
[2017-05-30] MEDS: Aspirin Enteric Coated 81 MG Tablet PO SCH (09:08)
[2017-05-30] MEDS: Ipratropium/Albuterol Neb 3 ML IH SCH ×3 (11:14→20:20)
[2017-05-30] MEDS: MethylPREDNISolone 40 MG/ML VIAL IVP SCH ×2 (11:48→17:06)
[2017-05-30] MEDS: Vancomycin 1,000 MG in D5% in Water 250 ML IVPB SCH (14:55)
[2017-05-30 17:14] LABS: ABG Base Excess 8 mEq/L (-2 to 3); ABG HCO3 37 mEq/L (21-27); ABG Oxygen Saturation 96 % (95-98); ABG PCO2 83 mmHg (35-45); ABG PH 7.26 pH Units (7.32-7.45); ABG PO2 100 mmHg (85-104); ABG TCO2 40 mEq/L (20-26); Blood Gas Modality PS; Blood Gas PEEP 6 cm H2O; Blood Gas Pressure Support 18 cm H2O
[2017-05-30] MEDS: Levofloxacin 750 MG/150 ML 750 MG/150 ML BAG IVPB SCH (23:58)
[2017-05-30] MEDS: methylPREDNISolone 125 MG/2 ML VIAL IVP SCH (23:58)
[2017-05-31 00:10] LABS: ABG Base Excess 7 mEq/L (-2 to 3); ABG HCO3 36 mEq/L (21-27); ABG Oxygen Saturation 97 % (95-98); ABG PCO2 83 mmHg (35-45); ABG PH 7.25 pH Units (7.32-7.45); ABG PO2 113 mmHg (85-104); ABG TCO2 39 mEq/L (20-26)
[2017-05-31] MEDS: Insulin LISPRO 300 UNITS/3 ML VIAL SQ SCH ×5 (00:22→21:18)
[2017-05-31] MEDS: Ipratropium/Albuterol Neb 3 ML IH SCH ×6 (00:26→20:29)
[2017-05-31] MEDS: *HR* Morphine 2 MG/ML SYRINGE IVP PRN ×3 (03:57→16:01)
[2017-05-31] MEDS: Vancomycin 1,000 MG in D5% in Water 250 ML IVPB SCH (03:57)
[2017-05-31 06:11] LABS: ABG Base Excess 9 mEq/L (-2 to 3); ABG HCO3 38 mEq/L (21-27); ABG Oxygen Saturation 88 % (95-98); ABG PCO2 82 mmHg (35-45); ABG PH 7.27 pH Units (7.32-7.45); ABG PO2 66 mmHg (85-104); ABG TCO2 40 mEq/L (20-26)
[2017-05-31] MEDS: *HR* Heparin 5,000 UNIT/ML VIAL SQ SCH ×3 (06:24→21:18)
[2017-05-31] MEDS: methylPREDNISolone 125 MG/2 ML VIAL IVP SCH ×4 (06:24→23:55)
[2017-05-31] MEDS ORDERED: Aminoglycoside Consult 1 EACH MC ONE (08:41)
[2017-05-31 09:32] LABS: Red Cell Distribution Width 18.6 % (11.5-14.5)
[2017-05-31 09:33] LABS: Hematocrit 32.4 % (35.3-44.9); Immature Granulocytes % 0.6 % (0-4); Lymphocytes # 0.3 K/mcL (0.6-4.6); Lymphocytes % 3.4 %; Mean Corpuscular HGB Conc 27.8 g/dL (31.6-35.5); Mean Corpuscular Hemoglobin 23.5 pg (28.0-33.3); Mean Corpuscular Volume 84.6 fL (83.0-100.0); Mean Platelet Volume 9.1 fL (9.4-12.4); Monocytes # 0.2 K/mcL (0.0-1.3); Monocytes % 2.2 %; Platelet Count 302 K/mcL (140-400); Red Blood Count 3.83 M/mcL (3.82-4.97); Segmented Neutrophils % 93.8 %
[2017-05-31 09:35] LABS: Neutrophils # 8.1 K/mcL (1.6-8.9)
[2017-05-31 09:43] LABS: BUN/Creatinine Ratio 23 (6-26); Blood Urea Nitrogen 17 mg/dL (7-20); Carbon Dioxide 32 mEq/L (19-29); Chloride 98 mEq/L (98-109); Glucose 154 mg/dL (70-99); Osmolality,Calculated 291 (280-300); Sodium 138 mEq/L (136-145); eGFR For African Americans > 60 (> 60); eGFR For Non-African Americans > 60 (> 60)
[2017-05-31 09:51] LABS: Basophilic Stippling 1+ (Not Present); Polychromasia 1+ (Not Present)
[2017-05-31 09:52] LABS: Platelet Estimate Normal (Normal)
--- NOTE | 2017-05-31 09:55 | Internal Med Progress Note ---
<Joseph Garner - Last Filed: 05/31/17 15:43> Date of Encounter: 05/31/17 Time of Encounter: 09:53 - Assessment and plan (1) Sepsis Current Visit: Yes Status: Acute Assessment and plan: Secondary to lobar pneumonia likely bacterial in etiology continue antibiotics continue to monitor white cell count Qualifiers: Sepsis type: sepsis due to unspecified organism Qualified Code(s): A41.9 - Sepsis, unspecified organism (2) Healthcare-associated pneumonia Current Visit: Yes Status: Acute Assessment and plan: Continue vancomycin & Levaquin; may stop vancomycin depending on blood cultures as reported tomorrow continue to monitor (3) Acute respiratory failure with hypoxia and hypercarbia Current Visit: Yes Status: Acute Assessment and plan: Patient is presently still dependent on BiPAP for oxygenation; has also been acidemic will continue on BiPAP for the time being and will attempt to wean off as able consider rechecking VBG vs ABG tomorrow (4) COPD exacerbation Current Visit: No Status: Acute Assessment and plan: Cont high dose IV steroids Duoneb and O2 Cont BiPAP (5) Diabetes Current Visit: No Status: Chronic Assessment and plan: start full liquid diet continue SSI [facility] Qualifiers: Diabetes mellitus type: type 2 Diabetes mellitus complication status: with unspecified complications Diabetes mellitus intermediate school teacher insulin use: unspecified longterm insulin use status Qualified Code(s): E11.8 - Type 2 diabetes mellitus with unspecified complications (6) Diastolic CHF, chronic Current Visit: Yes Status: Acute Assessment and plan: Stable and chronic (7) HTN (hypertension) Current Visit: Yes Status: Acute Assessment and plan: stable will resume all home meds Qualifiers: Hypertension type: essential hypertension Qualified Code(s): I10 - Essential (primary) hypertension (8) Tobacco dependence Current Visit: Yes Status: Acute Assessment and plan: counseled smoking cessation cont nicotine patch (9) DVT prophylaxis Current Visit: No Status: Acute Assessment and plan: cont subQ heparin - Time Spent With Patient less than 15 minutes - Subjective Interval history: Continues to be BiPAP dependent. Patient dislodged BiPAP tubing earlier this a.m. becoming severely hypoxic; FiO2 was temporarily increased to restore patient's set to about 90%. Patient does not have any acute complaints at this time. - Constitutional Vitals: Temp Pulse Resp BP Pulse Ox 97.4 F L 98 24 143/58 97 05/31/17 08:10 05/31/17 08:10 05/31/17 08:18 05/31/17 08:10 05/31/17 08:18 General appearance: Present: A&O X 3, pleasant, answers questions appropriately - Head Head exam: Present: atraumatic, normocephalic - Eye Eye exam: Present: PERRL, conjuntiva pink, sclera anicteric - Respiratory Additional comments: Patient on BiPAP, is able to speak short sentences, and is saturating about 90% on aforementioned BiPAP settings inspiratory and expiratory wheezes heard throughout did not hear any rales or rhonchi - Cardiovascular Cardiovascular exam: Present: RRR, +S1, +S2. Absent: diastolic murmur, gallop, rubs, +S3, +S4, systolic murmur, tachycardia - GI/Abdominal GI/Abdominal exam: Present: soft. Absent: tenderness - Extremities Exam Extremities exam: Present: warm, radial pulses palpable and symmetrical. Absent : calf tenderness, cyanotic, mottling, pedal edema - Neurological Exam Neurological exam: Present: no focal deficits. Absent: facial droop, speech deficit - Skin Skin exam: Present: normal color. Absent: cyanosis, diaphoretic, mottled, pallor Internal Medicine: Result - Labs CBC & Chem 7: 05/31/17 09:12 05/31/17 09:12 Labs: Short CBC 05/31/17 Range/Units 09:12 WBC 8.6 (4.3-11.1) K/mcL Hgb 9.0 L (11.5-15.4) g/dL Hct 32.4 L (35.3-44.9) % Plt Count 302 (140-400) K/mcL BMP 05/31/17 09:12 Sodium 138 Potassium 5.0 H Chloride 98 Carbon Dioxide 32 H BUN 17 Creatinine 0.74 Glucose 154 H Calcium 9.0 Laboratory Last Values WBC 8.6 K/mcL (4.3-11.1) 05/31/17 09:12 RBC 3.83 M/mcL (3.82-4.97) 05/31/17 09:12 Hgb 9.0 g/dL (11.5-15.4) L 05/31/17 09:12 Hct 32.4 % (35.3-44.9) L 05/31/17 09:12 MCV 84.6 fL (83.0-100.0) 05/31/17 09:12 MCH 23.5 pg (28.0-33.3) L 05/31/17 09:12 MCHC 27.8 g/dL (31.6-35.5) L 05/31/17 09:12 RDW 18.6 % (11.5-14.5) H 05/31/17 09:12 Plt Count 302 K/mcL (140-400) 05/31/17 09:12 MPV 9.1 fL (9.4-12.4) L 05/31/17 09:12 Immature Gran % 0.6 % (0-4) 05/31/17 09:12 Seg Neutrophils % 93.8 % 05/31/17 09:12 Lymphocytes % 3.4 % 05/31/17 09:12 Monocytes % 2.2 % 05/31/17 09:12 Eosinophils % 0.0 % 05/31/17 09:12 Basophils % 0.0 % 05/31/17 09:12 Neutrophils # 8.1 K/mcL (1.6-8.9) 05/31/17 09:12 Lymphocytes # 0.3 K/mcL (0.6-4.6) L 05/31/17 09:12 Monocytes # 0.2 K/mcL (0.0-1.3) 05/31/17 09:12 Eosinophils # 0.0 K/mcL (0.0-0.6) 05/31/17 09:12 Basophils # 0.0 K/mcL (0.0-0.2) 05/31/17 09:12 Platelet Estimate Normal (Normal) 05/31/17 09:12 Polychromasia 1+ (Not Present) A 05/31/17 09:12 Hypochromasia Present (Not Present) A 05/30/17 05:13 Basophilic Stippling 1+ (Not Present) A 05/31/17 09:12 PT 11.3 Seconds (9.4-12.1) 05/29/17 23:02 INR 1.1 05/29/17 23:02 APTT 25.5 Seconds (26.0-36.0) L 05/29/17 23:02 Sample Site L Radial 05/31/17 06:00 ABG pH 7.27 pH Units (7.32-7.45) L 05/31/17 06:00 ABG pCO2 82 mmHg (35-45) H* 05/31/17 06:00 ABG pO2 66 mmHg (85-104) L D 05/31/17 06:00 ABG HCO3 38 mEq/L (21-27) H 05/31/17 06:00 ABG Total CO2 40 mEq/L (20-26) H 05/31/17 06:00 ABG O2 Saturation 88 % (95-98) L 05/31/17 06:00 ABG Base Excess 9 mEq/L (-2 to 3) H 05/31/17 06:00 Awais Test N/A 05/31/17 06:00 O2 Delivery Device BiPAP 05/31/17 06:00 Blood Gas Modality PS 05/30/17 17:08 Inspired O2 50.0 (1-15=lpm pm99-658=%) 05/31/17 06:00 PEEP 6 cm H2O 05/30/17 17:08 Pressure Support 18 cm H2O 05/30/17 17:08 Sodium 138 mEq/L (136-145) 05/31/17 09:12 Potassium 5.0 mEq/L (3.5-4.5) H 05/31/17 09:12 Chloride 98 mEq/L (98-109) 05/31/17 09:12 Carbon Dioxide 32 mEq/L (19-29) H 05/31/17 09:12 BUN 17 mg/dL (7-20) 05/31/17 09:12 Creatinine 0.74 mg/dL (0.57-1.11) 05/31/17 09:12 Est GFR ( Amer) > 60 (> 60) 05/31/17 09:12 Est GFR (Non-Af Amer) > 60 (> 60) 05/31/17 09:12 BUN/Creatinine Ratio 23 (6-26) 05/31/17 09:12 Glucose 154 mg/dL (70-99) H 05/31/17 09:12 POC Glucose 188 (58-89) H 05/31/17 06:30 Calculated Osmolality 291 (280-300) 05/31/17 09:12 Lactic Acid 0.9 mmol/L (0.5-2.2) 05/29/17 23:02 Calcium 9.0 mg/dL (8.6-10.8) 05/31/17 09:12 Magnesium 1.5 mg/dL (1.6-2.6) L 05/30/17 05:13 Total Bilirubin 0.4 mg/dL (0.2-1.2) 05/30/17 05:13 AST 11 Units/L (5-34) 05/30/17 05:13 ALT 11 Units/L (0-55) 05/30/17 05:13 Alkaline Phosphatase 74 Units/L (38-126) 05/30/17 05:13 Troponin I 0.02 ng/mL (0-0.03) 05/30/17 Unknown B-Natriuretic Peptide 387 pg/mL (0-100) H 05/29/17 23:02 Serum Total Protein 6.6 g/dL (6.0-8.3) 05/30/17 05:13 Albumin 2.9 g/dL (3.5-5.0) L 05/30/17 05:13 Globulin 3.7 g/dL (2.4-3.5) H 05/30/17 05:13 Albumin/Globulin Ratio 0.8 (1.1-2.2) L 05/30/17 05:13 Urine Color Yellow (Yellow) 05/30/17 00:19 Urine Clarity Clear (Clear) 05/30/17 00:19 Urine pH 5.5 pH Units (5.0-8.0) 05/30/17 00:19 Ur Specific [place] 1.024 (1.010-1.025) 05/30/17 00:19 Urine Protein 100 mg/dL (Neg-Trace) H 05/30/17 00:19 Urine Glucose (UA) Normal mg/dL (Normal) 05/30/17 00:19 Urine Clinitest (Negative) 05/30/17 00:19 Urine Ketones Negative mg/dL (Negative) 05/30/17 00:19 Urine Blood Negative (Negative) 05/30/17 00:19 Urine Nitrite Negative (Negative) 05/30/17 00:19 Urine Bilirubin Negative (Negative) 05/30/17 00:19 Urine Urobilinogen Normal mg/dL (Normal) 05/30/17 00:19 Ur Leukocyte Esterase Negative (Negative) 05/30/17 00:19 Urine Microscopic RBC 0-3 per hpf (0-3) 05/30/17 00:19 Urine Microscopic WBC 0-3 per hpf (0-3) 05/30/17 00:19 Urine Bacteria Few per hpf (None-Few) 05/30/17 00:19 Ur Culture Indicated? NO (NO) 05/30/17 00:19 Person Notif of Crit Resp/Jeb Kwong 05/31/17 00:03 - ABG Interpretation ABG results: ABG ABG pH 7.27 pH Units (7.32-7.45) L 05/31/17 06:00 ABG pCO2 82 mmHg (35-45) H* 05/31/17 06:00 ABG pO2 66 mmHg (85-104) L D 05/31/17 06:00 ABG O2 Saturation 88 % (95-98) L 05/31/17 06:00 PT/INR, D-dimer PT 11.3 Seconds (9.4-12.1) 05/29/17 23:02 - Impressions Impressions Chest X-Ray 05/31/17 07:00 IMPRESSION: Improving edema. D/ / Jeannette Ricci MD / Jeannette Ricci MD Interpreting Provider: Jeannette Ricci MD Consult Discharge Plan - Plan Referrals: Steve Galarza MD [Primary Care Provider] - <Terry Cruz - Last Filed: 05/31/17 16:40> Date of Encounter: 05/31/17 - Constitutional Vitals: Temp Pulse Resp BP Pulse Ox 97.4 F L 98 26 135/69 95 05/31/17 08:10 05/31/17 08:10 05/31/17 15:47 05/31/17 11:25 05/31/17 15:47 Internal Medicine: Result - Labs CBC & Chem 7: 05/31/17 09:12 05/31/17 09:12 Labs: Short CBC 05/31/17 Range/Units 09:12 WBC 8.6 (4.3-11.1) K/mcL Hgb 9.0 L (11.5-15.4) g/dL Hct 32.4 L (35.3-44.9) % Plt Count 302 (140-400) K/mcL Neutrophils # 8.1 (1.6-8.9) K/mcL BMP 05/31/17 09:12 Sodium 138 Potassium 5.0 H Chloride 98 Carbon Dioxide 32 H BUN 17 Creatinine 0.74 Glucose 154 H Calcium 9.0 - ABG Interpretation ABG results: ABG ABG pH 7.27 pH Units (7.32-7.45) L 05/31/17 06:00 ABG pCO2 82 mmHg (35-45) H* 05/31/17 06:00 ABG pO2 66 mmHg (85-104) L D 05/31/17 06:00 ABG O2 Saturation 88 % (95-98) L 05/31/17 06:00 PT/INR, D-dimer PT 11.3 Seconds (9.4-12.1) 05/29/17 23:02 - Impressions Impressions Chest X-Ray 05/31/17 07:00 IMPRESSION: Improving edema. D/ / Jeannette Ricci MD / Jeannette Ricci MD Interpreting Provider: Jeannette Ricci MD - Attending Attestation I examined this patient and my medical decision-making was reviewed with the Resident Physician. I agree with the documented findings, disposition and treatment plan as described except to the extent set forth below. I have seen and examined the patient. Patient is a 76-year-old female with past medical history of diabetes, COPD and hypertension. Admitted for acute exacerbation of COPD and sepsis secondary to healthcare associated pneumonia. Patient is currently on Levaquin and vancomycin. She is currently on BiPAP. Patient is still elevated, but trending down. DuoNeb breathing treatment continued. Patient is awake and alert and able to answer some questions. We will need to continue BiPAP during the day and also at night at this time. No other acute events or complaints.
[2017-05-31] MEDS: Aspirin Enteric Coated 81 MG Tablet PO SCH (12:50)
--- NOTE | 2017-05-31 16:51 | Electrocardiograph Report ---
[place] [id number] Test Date: 2017-05-30 Pat Name: Rachel Guillen Department: 110 Room: 06 Gender: F [employer] Work[employer]: : 1940 Requested By: Matthew Harmon Order Number: [id number] Reading MD: Ruth Prajapati Measurements Intervals [place] Rate: 87 P: 43 AK: 140 QRS: 22 QRSD: 88 T: 53 QT: 373 QTc: 417 Interpretive Statements SINUS RHYTHM WITH SINUS ARRHYTHMIA Electronically Signed On 05-31-2017 16:50:14 EST by Ruth Prajapati
--- NOTE | 2017-05-31 16:59 | Electrocardiograph Report ---
[place] [address] Test Date: 2017-05-29 Pat Name: Rachel Guillen Department: 103 Room: 06 Gender: F [employer] Business Analyst: MITALI : 1940 Requested By: Santosh Reddy Order Number: [id number] Reading MD: Ruth Prajapati Measurements Intervals [place] Rate: 99 P: GA: 0 QRS: 23 QRSD: 80 T: 27 QT: 354 QTc: 410 Interpretive Statements SINUS RHYTHM ATRIAL BIGEMINY Electronically Signed On 05-31-2017 16:57:48 EST by Ruth Prajapati
[2017-05-31] MEDS: Levofloxacin 750 MG/150 ML 750 MG/150 ML BAG IVPB SCH (23:55)
[2017-06-01] MEDS: Ipratropium/Albuterol Neb 3 ML IH SCH ×7 (00:29→23:02)
[2017-06-01] MEDS ORDERED: Vancomycin 1,250 MG in D5% in Water 250 ML IVPB SCH (02:00)
[2017-06-01] MEDS: Acetaminophen 325 MG TABLET PO PRN ×3 (02:52→14:38)
[2017-06-01 04:14] LABS: Immature Granulocytes % 0.4 % (0-4); Lymphocytes % 3.7 %; Segmented Neutrophils % 92.9 %
[2017-06-01 04:16] LABS: Hematocrit 33.3 % (35.3-44.9); Hemoglobin 9.2 g/dL (11.5-15.4); Lymphocytes # 0.3 K/mcL (0.6-4.6); Mean Corpuscular HGB Conc 27.6 g/dL (31.6-35.5); Mean Corpuscular Hemoglobin 23.2 pg (28.0-33.3); Mean Corpuscular Volume 84.1 fL (83.0-100.0); Mean Platelet Volume 9.5 fL (9.4-12.4); Monocytes # 0.2 K/mcL (0.0-1.3); Neutrophils # 6.6 K/mcL (1.6-8.9); Platelet Count 332 K/mcL (140-400); Red Blood Count 3.96 M/mcL (3.82-4.97); Red Cell Distribution Width 18.4 % (11.5-14.5)
[2017-06-01 04:27] LABS: ABG Base Excess 7 mEq/L (-2 to 3); ABG HCO3 35 mEq/L (21-27); ABG Oxygen Saturation 91 % (95-98); ABG PCO2 66 mmHg (35-45); ABG PH 7.33 pH Units (7.32-7.45); ABG PO2 67 mmHg (85-104); ABG TCO2 37 mEq/L (20-26)
[2017-06-01 04:31] LABS: BUN/Creatinine Ratio 29 (6-26); Blood Urea Nitrogen 22 mg/dL (7-20); Calcium 9.4 mg/dL (8.6-10.8); Carbon Dioxide 32 mEq/L (19-29); Chloride 97 mEq/L (98-109); Glucose 217 mg/dL (70-99); Osmolality,Calculated 294 (280-300); Potassium 4.8 mEq/L (3.5-4.5); Sodium 137 mEq/L (136-145); eGFR For African Americans > 60 (> 60); eGFR For Non-African Americans > 60 (> 60)
[2017-06-01 04:38] LABS: Anisocytosis 1+ (Not Present); Hypochromasia Present (Not Present); Platelet Estimate Normal (Normal); Poikilocytosis 1+ (Not Present)
[2017-06-01] MEDS: *HR* Heparin 5,000 UNIT/ML VIAL SQ SCH ×3 (06:06→21:51)
[2017-06-01] MEDS: methylPREDNISolone 125 MG/2 ML VIAL IVP SCH ×3 (06:06→17:36)
--- NOTE | 2017-06-01 08:07 | Internal Med Progress Note ---
<Joseph Garner - Last Filed: 06/01/17 14:21> Date of Encounter: 06/01/17 Time of Encounter: 08:03 - Assessment and plan (1) Sepsis Current Visit: Yes Status: Acute Assessment and plan: Secondary to lobar pneumonia likely bacterial in etiology continue antibiotics white cell count is normalized Qualifiers: Sepsis type: sepsis due to unspecified organism Qualified Code(s): A41.9 - Sepsis, unspecified organism (2) Healthcare-associated pneumonia Current Visit: Yes Status: Acute Assessment and plan: Negative BC at 48h; d/c vanco cont levaquin continue to monitor (3) Acute respiratory failure with hypoxia and hypercarbia Current Visit: Yes Status: Acute Assessment and plan: Patient is presently still dependent on BiPAP for oxygenation; has also been acidemic will continue on BiPAP for the time being and will attempt to wean off as able AVG improved this a.m.; patient is no longer acidemic and PCO2 is improving continue to wean off of BiPAP (4) COPD exacerbation Current Visit: No Status: Acute Assessment and plan: Cont high dose IV steroids consider transition to PO prednisone taper in the next day or 2 Duoneb and O2 Cont BiPAP and wean as able (5) Left-sided chest wall pain Current Visit: Yes Status: Acute Assessment and plan: Has been going on for several weeks; patient brings up today because it is more uncomfortable than normal pain is described as sore at rib margin on left side and hurts with deep breathing in direct pressure No associated sx including retrosternal chest pain, worsening SOA, diaphoresis, lightheadedness, nausea, or or vomiting. Repeat EKG this AM neg for acute ischemic changes including ST depressions/ elevations, acute T-wave changes; troponin negative. Doubt ACS. (6) Diabetes Current Visit: No Status: Chronic Assessment and plan: Continue full liquid diet continue SSI [facility] Qualifiers: Diabetes mellitus type: type 2 Diabetes mellitus complication status: with unspecified complications Diabetes mellitus terminal block assembler insulin use: unspecified snf insulin use status Qualified Code(s): E11.8 - Type 2 diabetes mellitus with unspecified complications (7) Diastolic CHF, chronic Current Visit: Yes Status: Acute Assessment and plan: Stable and chronic no signs of volume overload on exam this AM (8) HTN (hypertension) Current Visit: Yes Status: Acute Assessment and plan: stable will start Lasix IV 20 mg daily as well as lisinopril 5 mg daily Qualifiers: Hypertension type: essential hypertension Qualified Code(s): I10 - Essential (primary) hypertension (9) Tobacco dependence Current Visit: Yes Status: Acute Assessment and plan: counseled smoking cessation cont nicotine patch (10) DVT prophylaxis Current Visit: No Status: Acute Assessment and plan: cont subQ heparin - Time Spent With Patient less than 15 minutes - Subjective Interval history: Continues to be BiPAP dependent, though FiO2 has been decreased to 35% and patient is still saturating within the 90s on this setting. Overnight course otherwise stable. On encounter, patient does describe left lateral chest wall pain she characterizes as sore and tender with palpation. Is not having any retro sternal pain, worse shortness of air, nausea, vomiting, diaphoresis, lightheadedness, shoulder pain, jaw pain, or arm pain. No other complaints at this time. - Constitutional Vitals: Temp Pulse Resp BP Pulse Ox 98.1 F 95 21 176/82 93 06/01/17 07:17 06/01/17 07:17 06/01/17 07:17 06/01/17 07:17 06/01/17 07:17 General appearance: Present: mild distress, A&O X 3, pleasant, answers questions appropriately - Head Head exam: Present: atraumatic, normocephalic - Eye Eye exam: Present: PERRL, conjuntiva pink, sclera anicteric - Respiratory Additional comments: On BiPAP at current FiO2 of 35%. Is able to speak full sentences to me. No use of accessory respiratory muscles. Wheezes heard throughout all lung wolfe. No stridor. No rales or rhonchi. - Extremities Exam Extremities exam: Present: warm, radial pulses palpable and symmetrical. Absent : calf tenderness, cyanotic, pedal edema - Skin Skin exam: Present: dry, intact. Absent: cyanosis, diaphoretic, mottled, pallor Internal Medicine: Result - Labs CBC & Chem 7: 06/01/17 03:50 06/01/17 03:50 Labs: Short CBC 05/31/17 06/01/17 Range/Units 09:12 03:50 WBC 8.6 7.1 (4.3-11.1) K/mcL Hgb 9.0 L 9.2 L (11.5-15.4) g/dL Hct 32.4 L 33.3 L (35.3-44.9) % Plt Count 302 332 (140-400) K/mcL Neutrophils # 8.1 6.6 (1.6-8.9) K/mcL BMP 05/31/17 06/01/17 09:12 03:50 Sodium 138 137 Potassium 5.0 H 4.8 H Chloride 98 97 L Carbon Dioxide 32 H 32 H BUN 17 22 H Creatinine 0.74 0.76 Glucose 154 H 217 H Calcium 9.0 9.4 Laboratory Last Values WBC 7.1 K/mcL (4.3-11.1) 06/01/17 03:50 RBC 3.96 M/mcL (3.82-4.97) 06/01/17 03:50 Hgb 9.2 g/dL (11.5-15.4) L 06/01/17 03:50 Hct 33.3 % (35.3-44.9) L 06/01/17 03:50 MCV 84.1 fL (83.0-100.0) 06/01/17 03:50 MCH 23.2 pg (28.0-33.3) L 06/01/17 03:50 MCHC 27.6 g/dL (31.6-35.5) L 06/01/17 03:50 RDW 18.4 % (11.5-14.5) H 06/01/17 03:50 Plt Count 332 K/mcL (140-400) 06/01/17 03:50 MPV 9.5 fL (9.4-12.4) 06/01/17 03:50 Immature Gran % 0.4 % (0-4) 06/01/17 03:50 Seg Neutrophils % 92.9 % 06/01/17 03:50 Lymphocytes % 3.7 % 06/01/17 03:50 Monocytes % 3.0 % 06/01/17 03:50 Eosinophils % 0.0 % 06/01/17 03:50 Basophils % 0.0 % 06/01/17 03:50 Neutrophils # 6.6 K/mcL (1.6-8.9) 06/01/17 03:50 Lymphocytes # 0.3 K/mcL (0.6-4.6) L 06/01/17 03:50 Monocytes # 0.2 K/mcL (0.0-1.3) 06/01/17 03:50 Eosinophils # 0.0 K/mcL (0.0-0.6) 06/01/17 03:50 Basophils # 0.0 K/mcL (0.0-0.2) 06/01/17 03:50 Platelet Estimate Normal (Normal) 06/01/17 03:50 Polychromasia 1+ (Not Present) A 05/31/17 09:12 Hypochromasia Present (Not Present) A 06/01/17 03:50 Poikilocytosis 1+ (Not Present) A 06/01/17 03:50 Basophilic Stippling 1+ (Not Present) A 05/31/17 09:12 Anisocytosis 1+ (Not Present) A 06/01/17 03:50 PT 11.3 Seconds (9.4-12.1) 05/29/17 23:02 INR 1.1 05/29/17 23:02 APTT 25.5 Seconds (26.0-36.0) L 05/29/17 23:02 Sample Site R Radial 06/01/17 04:23 ABG pH 7.33 pH Units (7.32-7.45) 06/01/17 04:23 ABG pCO2 66 mmHg (35-45) H 06/01/17 04:23 ABG pO2 67 mmHg (85-104) L 06/01/17 04:23 ABG HCO3 35 mEq/L (21-27) H 06/01/17 04:23 ABG Total CO2 37 mEq/L (20-26) H 06/01/17 04:23 ABG O2 Saturation 91 % (95-98) L 06/01/17 04:23 ABG Base Excess 7 mEq/L (-2 to 3) H 06/01/17 04:23 Awais Test Positive 06/01/17 04:23 O2 Delivery Device BiPAP 06/01/17 04:23 Blood Gas Modality PS 05/30/17 17:08 Inspired O2 35.0 (1-15=lpm [id number]=%) 06/01/17 04:23 PEEP 6 cm H2O 05/30/17 17:08 Pressure Support 18 cm H2O 05/30/17 17:08 Sodium 137 mEq/L (136-145) 06/01/17 03:50 Potassium 4.8 mEq/L (3.5-4.5) H 06/01/17 03:50 Chloride 97 mEq/L (98-109) L 06/01/17 03:50 Carbon Dioxide 32 mEq/L (19-29) H 06/01/17 03:50 BUN 22 mg/dL (7-20) H 06/01/17 03:50 Creatinine 0.76 mg/dL (0.57-1.11) 06/01/17 03:50 Est GFR ( Amer) > 60 (> 60) 06/01/17 03:50 Est GFR (Non-Af Amer) > 60 (> 60) 06/01/17 03:50 BUN/Creatinine Ratio 29 (6-26) H 06/01/17 03:50 Glucose 217 mg/dL (70-99) H 06/01/17 03:50 POC Glucose 205 (58-89) H 05/31/17 20:23 Calculated Osmolality 294 (280-300) 06/01/17 03:50 Lactic Acid 0.9 mmol/L (0.5-2.2) 05/29/17 23:02 Calcium 9.4 mg/dL (8.6-10.8) 06/01/17 03:50 Magnesium 1.5 mg/dL (1.6-2.6) L 05/30/17 05:13 Total Bilirubin 0.4 mg/dL (0.2-1.2) 05/30/17 05:13 AST 11 Units/L (5-34) 05/30/17 05:13 ALT 11 Units/L (0-55) 05/30/17 05:13 Alkaline Phosphatase 74 Units/L (38-126) 05/30/17 05:13 Troponin I 0.02 ng/mL (0-0.03) 05/30/17 Unknown B-Natriuretic Peptide 387 pg/mL (0-100) H 05/29/17 23:02 Serum Total Protein 6.6 g/dL (6.0-8.3) 05/30/17 05:13 Albumin 2.9 g/dL (3.5-5.0) L 05/30/17 05:13 Globulin 3.7 g/dL (2.4-3.5) H 05/30/17 05:13 Albumin/Globulin Ratio 0.8 (1.1-2.2) L 05/30/17 05:13 Urine Color Yellow (Yellow) 05/30/17 00:19 Urine Clarity Clear (Clear) 05/30/17 00:19 Urine pH 5.5 pH Units (5.0-8.0) 05/30/17 00:19 Ur Specific [place] 1.024 (1.010-1.025) 05/30/17 00:19 Urine Protein 100 mg/dL (Neg-Trace) H 05/30/17 00:19 Urine Glucose (UA) Normal mg/dL (Normal) 05/30/17 00:19 Urine Clinitest (Negative) 05/30/17 00:19 Urine Ketones Negative mg/dL (Negative) 05/30/17 00:19 Urine Blood Negative (Negative) 05/30/17 00:19 Urine Nitrite Negative (Negative) 05/30/17 00:19 Urine Bilirubin Negative (Negative) 05/30/17 00:19 Urine Urobilinogen Normal mg/dL (Normal) 05/30/17 00:19 Ur Leukocyte Esterase Negative (Negative) 05/30/17 00:19 Urine Microscopic RBC 0-3 per hpf (0-3) 05/30/17 00:19 Urine Microscopic WBC 0-3 per hpf (0-3) 05/30/17 00:19 Urine Bacteria Few per hpf (None-Few) 05/30/17 00:19 Ur Culture Indicated? NO (NO) 05/30/17 00:19 Vancomycin Trough 19.5 mcg/mL (10-20) 05/31/17 14:02 Person Notif of Crit Resp/Jeb Kwong 05/31/17 00:03 - ABG Interpretation ABG results: ABG ABG pH 7.33 pH Units (7.32-7.45) 06/01/17 04:23 ABG pCO2 66 mmHg (35-45) H 06/01/17 04:23 ABG pO2 67 mmHg (85-104) L 06/01/17 04:23 ABG O2 Saturation 91 % (95-98) L 06/01/17 04:23 PT/INR, D-dimer PT 11.3 Seconds (9.4-12.1) 05/29/17 23:02 Consult Discharge Plan - Plan Referrals: Gustavo Stout DO [Resident] - 06/07/17 10:20 am <Darek Teague - Last Filed: 06/01/17 20:15> Date of Encounter: 06/01/17 - Constitutional Vitals: Temp Pulse Resp BP Pulse Ox 97.7 F 98 21 145/69 96 06/01/17 19:26 06/01/17 19:26 06/01/17 19:33 06/01/17 19:26 06/01/17 19:33 Internal Medicine: Result - Labs CBC & Chem 7: 06/01/17 03:50 06/01/17 03:50 Labs: Short CBC 06/01/17 Range/Units 03:50 WBC 7.1 (4.3-11.1) K/mcL Hgb 9.2 L (11.5-15.4) g/dL Hct 33.3 L (35.3-44.9) % Plt Count 332 (140-400) K/mcL Neutrophils # 6.6 (1.6-8.9) K/mcL BMP 06/01/17 03:50 Sodium 137 Potassium 4.8 H Chloride 97 L Carbon Dioxide 32 H BUN 22 H Creatinine 0.76 Glucose 217 H Calcium 9.4 Cardiac Enzymes 06/01/17 Range/Units 08:30 Troponin I 0.03 (0-0.03) ng/mL - ABG Interpretation ABG results: ABG ABG pH 7.33 pH Units (7.32-7.45) 06/01/17 04:23 ABG pCO2 66 mmHg (35-45) H 06/01/17 04:23 ABG pO2 67 mmHg (85-104) L 06/01/17 04:23 ABG O2 Saturation 91 % (95-98) L 06/01/17 04:23 PT/INR, D-dimer PT 11.3 Seconds (9.4-12.1) 05/29/17 23:02 - Impressions Impressions Chest CTA 06/01/17 15:35 IMPRESSION: No evidence of pulmonary embolism. Minimal patchy opacity within the right upper lung which may be infectious or inflammatory. D/ / Ruby Cortes MD / Ruby Cortes MD Interpreting Provider: Ruby Cortes MD - Attending Attestation I examined this patient and my medical decision-making was reviewed with the Resident Physician, Dr. Joseph Garner. I agree with the documented findings, disposition and treatment plan as described except to the extent set forth below. I have independently obtained history and examined the patient and my findings are summarized below: On examination the patient is tachycardic, tachypneic, has bilateral expiratory wheezing. Plan: I will obtain a CT of the chest with IV contrast to rule out PE given that a COPD exacerbation can mask the presentation of a pulmonary embolus. Continue with IV steroids and antibiotics. Continue with BiPAP. I will add Ativan for anxiety.
[2017-06-01] MEDS: Aspirin Enteric Coated 81 MG Tablet PO SCH (08:19)
[2017-06-01] MEDS: Insulin LISPRO 300 UNITS/3 ML VIAL SQ SCH ×4 (08:20→21:50)
[2017-06-01] MEDS: Furosemide 20 MG/2 ML VIAL IVP SCH (09:20)
[2017-06-01] MEDS: *HR* Morphine 2 MG/ML SYRINGE IVP PRN (14:44)
[2017-06-01] MEDS: *HR* LORazepam 2 MG/ML VIAL IVP PRN (16:21)
[2017-06-01] MEDS: Cefepime HCl 2,000 MG in Water for inj. (sterile) 20 ML IVP SCH (17:36)
[2017-06-02] MEDS: Levofloxacin 750 MG/150 ML 750 MG/150 ML BAG IVPB SCH (00:44)
[2017-06-02] MEDS: methylPREDNISolone 125 MG/2 ML VIAL IVP SCH ×4 (00:44→17:06)
[2017-06-02] MEDS: Ipratropium/Albuterol Neb 3 ML IH SCH ×6 (03:26→23:25)
[2017-06-02 03:45] LABS: ABG Base Excess 9 mEq/L (-2 to 3); ABG HCO3 37 mEq/L (21-27); ABG Oxygen Saturation 97 % (95-98); ABG PCO2 66 mmHg (35-45); ABG PH 7.35 pH Units (7.32-7.45); ABG PO2 97 mmHg (85-104); ABG TCO2 39 mEq/L (20-26)
[2017-06-02 04:16] LABS: BUN/Creatinine Ratio 26 (6-26); Blood Urea Nitrogen 22 mg/dL (7-20); Calcium 9.3 mg/dL (8.6-10.8); Carbon Dioxide 32 mEq/L (19-29); Chloride 95 mEq/L (98-109); Glucose 260 mg/dL (70-99); Osmolality,Calculated 296 (280-300); Potassium 4.5 mEq/L (3.5-4.5); Sodium 137 mEq/L (136-145); eGFR For African Americans > 60 (> 60); eGFR For Non-African Americans > 60 (> 60)
[2017-06-02 04:23] LABS: Hemoglobin 9.4 g/dL (11.5-15.4); Immature Granulocytes % 0.4 % (0-4); Lymphocytes # 0.3 K/mcL (0.6-4.6); Lymphocytes % 4.8 %; Mean Corpuscular HGB Conc 28.5 g/dL (31.6-35.5); Mean Corpuscular Hemoglobin 23.6 pg (28.0-33.3); Mean Corpuscular Volume 82.9 fL (83.0-100.0); Mean Platelet Volume 9.4 fL (9.4-12.4); Monocytes # 0.2 K/mcL (0.0-1.3); Monocytes % 3.2 %; Neutrophils # 5.2 K/mcL (1.6-8.9); Platelet Count 309 K/mcL (140-400); Red Blood Count 3.98 M/mcL (3.82-4.97); Red Cell Distribution Width 18.5 % (11.5-14.5); Segmented Neutrophils % 91.6 %
[2017-06-02 05:06] LABS: Hypochromasia Present (Not Present); Platelet Estimate Normal (Normal); Polychromasia 1+ (Not Present); Stomatocytes 1+ (Not Present)
[2017-06-02] MEDS: Cefepime HCl 2,000 MG in Water for inj. (sterile) 20 ML IVP SCH ×2 (06:23→17:04)
[2017-06-02] MEDS: *HR* Heparin 5,000 UNIT/ML VIAL SQ SCH ×3 (06:27→21:01)
[2017-06-02] MEDS: Insulin LISPRO 300 UNITS/3 ML VIAL SQ SCH ×4 (08:05→21:06)
[2017-06-02] MEDS: Aspirin Enteric Coated 81 MG Tablet PO SCH (08:08)
[2017-06-02] MEDS: Furosemide 20 MG/2 ML VIAL IVP SCH (08:08)
[2017-06-02] MEDS: *HR* LORazepam 2 MG/ML VIAL IVP PRN (09:20)
--- NOTE | 2017-06-02 10:10 | Internal Med Progress Note ---
<Joseph Garner - Last Filed: 06/02/17 16:07> Date of Encounter: 06/02/17 Time of Encounter: 10:09 - Assessment and plan (1) Sepsis Current Visit: Yes Status: Acute Assessment and plan: Secondary to lobar pneumonia likely bacterial in etiology continue antibiotics Qualifiers: Sepsis type: sepsis due to unspecified organism Qualified Code(s): A41.9 - Sepsis, unspecified organism (2) Healthcare-associated pneumonia Current Visit: Yes Status: Acute Assessment and plan: Negative BC at 48h; d/c vanco cont levaquin continue to monitor (3) Acute respiratory failure with hypoxia and hypercarbia Current Visit: Yes Status: Acute Assessment and plan: Patient continues to be intermittently BiPAP dependent; has tolerated short courses of high flow nasal 02 will continue on BiPAP for the time being and will wean off as able ABG continues to show improvement; patient is no longer acidemic and PCO2 is within the 60s (4) COPD exacerbation Current Visit: No Status: Acute Assessment and plan: Cont high dose IV steroids consider transition to PO prednisone taper in the next day or 2 Duoneb and O2 Cont BiPAP and wean as able (5) Diabetes Current Visit: No Status: Chronic Assessment and plan: Patient is able to tolerate short courses on nasal 02; start diabetic diet continue SSI; added Levemir 6 units BID FSBG [facility] Qualifiers: Diabetes mellitus type: type 2 Diabetes mellitus complication status: with unspecified complications Diabetes mellitus alf insulin use: unspecified remote computer terminal operator insulin use status Qualified Code(s): E11.8 - Type 2 diabetes mellitus with unspecified complications (6) Diastolic CHF, chronic Current Visit: Yes Status: Acute Assessment and plan: Stable and chronic no signs of volume overload on exam this AM (7) HTN (hypertension) Current Visit: Yes Status: Acute Assessment and plan: stable with moderate elevation cont current Rx Qualifiers: Hypertension type: essential hypertension Qualified Code(s): I10 - Essential (primary) hypertension (8) Tobacco dependence Current Visit: Yes Status: Acute Assessment and plan: counseled smoking cessation cont nicotine patch (9) DVT prophylaxis Current Visit: No Status: Acute Assessment and plan: cont subQ heparin - Time Spent With Patient less than 15 minutes - Subjective Interval history: Continues to be intermittendly BiPAP dependent, though FiO2 has been decreased to 35% and patient is still saturating within the 90s on this setting. Patient has return of appetite and has been able to tolerate high flow nasal O2. Overnight course otherwise stable. No other complaints at this time. - Constitutional Vitals: Temp Pulse Resp BP Pulse Ox 97.8 F 96 21 127/75 92 06/02/17 07:09 06/02/17 07:09 06/02/17 07:48 06/02/17 03:15 06/02/17 07:48 General appearance: Present: A&O X 3, pleasant, no acute distress, answers questions appropriately - Head Head exam: Present: atraumatic, normocephalic - Eye Eye exam: Present: PERRL, conjuntiva pink, sclera anicteric - Neck Neck exam general surgery: Present: supple, trachea midline. Absent: lymphadenopathy - Respiratory Respiratory exam: Present: CTAB, wheezes. Absent: accessory muscle use, rales, respiratory distress, rhonchi, stridor Additional comments: On BiPAP, no apparent respiratory distress, the use of accessory musculature, able to speak full - Cardiovascular Cardiovascular exam: Present: +S1, +S2, tachycardia. Absent: diastolic murmur, gallop, rubs, +S3, +S4, systolic murmur - GI/Abdominal GI/Abdominal exam: Present: soft. Absent: distended, tenderness - Extremities Exam Extremities exam: Present: warm, radial pulses palpable and symmetrical. Absent : calf tenderness, cyanotic, pedal edema - Skin Skin exam: Present: dry, intact, normal color. Absent: cyanosis, diaphoretic, mottled, pallor Internal Medicine: Result - Labs CBC & Chem 7: 06/02/17 03:45 06/02/17 03:45 Labs: Short CBC 06/02/17 Range/Units 03:45 WBC 5.7 (4.3-11.1) K/mcL Hgb 9.4 L (11.5-15.4) g/dL Hct 33.0 L (35.3-44.9) % Plt Count 309 (140-400) K/mcL Neutrophils # 5.2 (1.6-8.9) K/mcL BMP 06/02/17 03:45 Sodium 137 Potassium 4.5 Chloride 95 L Carbon Dioxide 32 H BUN 22 H Creatinine 0.84 Glucose 260 H Calcium 9.3 Laboratory Last Values WBC 5.7 K/mcL (4.3-11.1) 06/02/17 03:45 RBC 3.98 M/mcL (3.82-4.97) 06/02/17 03:45 Hgb 9.4 g/dL (11.5-15.4) L 06/02/17 03:45 Hct 33.0 % (35.3-44.9) L 06/02/17 03:45 MCV 82.9 fL (83.0-100.0) L 06/02/17 03:45 MCH 23.6 pg (28.0-33.3) L 06/02/17 03:45 MCHC 28.5 g/dL (31.6-35.5) L 06/02/17 03:45 RDW 18.5 % (11.5-14.5) H 06/02/17 03:45 Plt Count 309 K/mcL (140-400) 06/02/17 03:45 MPV 9.4 fL (9.4-12.4) 06/02/17 03:45 Immature Gran % 0.4 % (0-4) 06/02/17 03:45 Seg Neutrophils % 91.6 % 06/02/17 03:45 Lymphocytes % 4.8 % 06/02/17 03:45 Monocytes % 3.2 % 06/02/17 03:45 Eosinophils % 0.0 % 06/02/17 03:45 Basophils % 0.0 % 06/02/17 03:45 Neutrophils # 5.2 K/mcL (1.6-8.9) 06/02/17 03:45 Lymphocytes # 0.3 K/mcL (0.6-4.6) L 06/02/17 03:45 Monocytes # 0.2 K/mcL (0.0-1.3) 06/02/17 03:45 Eosinophils # 0.0 K/mcL (0.0-0.6) 06/02/17 03:45 Basophils # 0.0 K/mcL (0.0-0.2) 06/02/17 03:45 Platelet Estimate Normal (Normal) 06/02/17 03:45 Polychromasia 1+ (Not Present) A 06/02/17 03:45 Hypochromasia Present (Not Present) A 06/02/17 03:45 Poikilocytosis 1+ (Not Present) A 06/01/17 03:50 Basophilic Stippling 1+ (Not Present) A 05/31/17 09:12 Anisocytosis 1+ (Not Present) A 06/01/17 03:50 Stomatocytes 1+ (Not Present) A 06/02/17 03:45 PT 11.3 Seconds (9.4-12.1) 05/29/17 23:02 INR 1.1 05/29/17 23:02 APTT 25.5 Seconds (26.0-36.0) L 05/29/17 23:02 Sample Site R Radial 06/01/17 04:23 ABG pH 7.35 pH Units (7.32-7.45) 06/02/17 03:39 ABG pCO2 66 mmHg (35-45) H 06/02/17 03:39 ABG pO2 97 mmHg (85-104) 06/02/17 03:39 ABG HCO3 37 mEq/L (21-27) H 06/02/17 03:39 ABG Total CO2 39 mEq/L (20-26) H 06/02/17 03:39 ABG O2 Saturation 97 % (95-98) 06/02/17 03:39 ABG Base Excess 9 mEq/L (-2 to 3) H 06/02/17 03:39 Awais Test Positive 06/01/17 04:23 O2 Delivery Device BiPAP 06/01/17 04:23 Blood Gas Modality PS 05/30/17 17:08 Inspired O2 35.0 (1-15=lpm ew50-173=%) 06/01/17 04:23 PEEP 6 cm H2O 05/30/17 17:08 Pressure Support 18 cm H2O 05/30/17 17:08 Sodium 137 mEq/L (136-145) 06/02/17 03:45 Potassium 4.5 mEq/L (3.5-4.5) 06/02/17 03:45 Chloride 95 mEq/L (98-109) L 06/02/17 03:45 Carbon Dioxide 32 mEq/L (19-29) H 06/02/17 03:45 BUN 22 mg/dL (7-20) H 06/02/17 03:45 Creatinine 0.84 mg/dL (0.57-1.11) 06/02/17 03:45 Est GFR ( Amer) > 60 (> 60) 06/02/17 03:45 Est GFR (Non-Af Amer) > 60 (> 60) 06/02/17 03:45 BUN/Creatinine Ratio 26 (6-26) 06/02/17 03:45 Glucose 260 mg/dL (70-99) H 06/02/17 03:45 POC Glucose 241 (58-89) H 06/01/17 19:32 Calculated Osmolality 296 (280-300) 06/02/17 03:45 Lactic Acid 0.9 mmol/L (0.5-2.2) 05/29/17 23:02 Calcium 9.3 mg/dL (8.6-10.8) 06/02/17 03:45 Magnesium 1.5 mg/dL (1.6-2.6) L 05/30/17 05:13 Total Bilirubin 0.4 mg/dL (0.2-1.2) 05/30/17 05:13 AST 11 Units/L (5-34) 05/30/17 05:13 ALT 11 Units/L (0-55) 05/30/17 05:13 Alkaline Phosphatase 74 Units/L (38-126) 05/30/17 05:13 Troponin I 0.03 ng/mL (0-0.03) 06/01/17 08:30 B-Natriuretic Peptide 387 pg/mL (0-100) H 05/29/17 23:02 Serum Total Protein 6.6 g/dL (6.0-8.3) 05/30/17 05:13 Albumin 2.9 g/dL (3.5-5.0) L 05/30/17 05:13 Globulin 3.7 g/dL (2.4-3.5) H 05/30/17 05:13 Albumin/Globulin Ratio 0.8 (1.1-2.2) L 05/30/17 05:13 Urine Color Yellow (Yellow) 05/30/17 00:19 Urine Clarity Clear (Clear) 05/30/17 00:19 Urine pH 5.5 pH Units (5.0-8.0) 05/30/17 00:19 Ur Specific [place] 1.024 (1.010-1.025) 05/30/17 00:19 Urine Protein 100 mg/dL (Neg-Trace) H 05/30/17 00:19 Urine Glucose (UA) Normal mg/dL (Normal) 05/30/17 00:19 Urine Clinitest (Negative) 05/30/17 00:19 Urine Ketones Negative mg/dL (Negative) 05/30/17 00:19 Urine Blood Negative (Negative) 05/30/17 00:19 Urine Nitrite Negative (Negative) 05/30/17 00:19 Urine Bilirubin Negative (Negative) 05/30/17 00:19 Urine Urobilinogen Normal mg/dL (Normal) 05/30/17 00:19 Ur Leukocyte Esterase Negative (Negative) 05/30/17 00:19 Urine Microscopic RBC 0-3 per hpf (0-3) 05/30/17 00:19 Urine Microscopic WBC 0-3 per hpf (0-3) 05/30/17 00:19 Urine Bacteria Few per hpf (None-Few) 05/30/17 00:19 Ur Culture Indicated? NO (NO) 05/30/17 00:19 Vancomycin Trough 19.5 mcg/mL (10-20) 05/31/17 14:02 Person Notif of Crit Resp/Jeb Kwong 05/31/17 00:03 - ABG Interpretation ABG results: ABG ABG pH 7.35 pH Units (7.32-7.45) 06/02/17 03:39 ABG pCO2 66 mmHg (35-45) H 06/02/17 03:39 ABG pO2 97 mmHg (85-104) 06/02/17 03:39 ABG O2 Saturation 97 % (95-98) 06/02/17 03:39 PT/INR, D-dimer PT 11.3 Seconds (9.4-12.1) 05/29/17 23:02 Additional comments: No longer acidemic, PCO2 improving - Impressions Impressions Chest CTA 06/01/17 15:35 IMPRESSION: No evidence of pulmonary embolism. Minimal patchy opacity within the right upper lung which may be infectious or inflammatory. D/ / Ruby Cortes MD / Ruby Cortes MD Interpreting Provider: Ruby Cortes MD Consult Discharge Plan - Plan Referrals: Gustavo Stout DO [Resident] - 06/07/17 10:20 am <Darek Teague - Last Filed: 06/02/17 18:47> Date of Encounter: 06/02/17 - Constitutional Vitals: Temp Pulse Resp BP Pulse Ox 97.3 F L 105 23 145/75 93 06/02/17 16:04 06/02/17 16:04 06/02/17 16:16 06/02/17 16:04 06/02/17 16:16 Internal Medicine: Result - Labs CBC & Chem 7: 06/02/17 03:45 06/02/17 03:45 Labs: Short CBC 06/02/17 Range/Units 03:45 WBC 5.7 (4.3-11.1) K/mcL Hgb 9.4 L (11.5-15.4) g/dL Hct 33.0 L (35.3-44.9) % Plt Count 309 (140-400) K/mcL Neutrophils # 5.2 (1.6-8.9) K/mcL BMP 06/02/17 03:45 Sodium 137 Potassium 4.5 Chloride 95 L Carbon Dioxide 32 H BUN 22 H Creatinine 0.84 Glucose 260 H Calcium 9.3 - ABG Interpretation ABG results: ABG ABG pH 7.35 pH Units (7.32-7.45) 06/02/17 03:39 ABG pCO2 66 mmHg (35-45) H 06/02/17 03:39 ABG pO2 97 mmHg (85-104) 06/02/17 03:39 ABG O2 Saturation 97 % (95-98) 06/02/17 03:39 PT/INR, D-dimer PT 11.3 Seconds (9.4-12.1) 05/29/17 23:02 - Attending Attestation I examined this patient and my medical decision-making was reviewed with the Resident Physician, Dr. Pascual Ruiz. I agree with the documented findings, disposition and treatment plan as described except to the extent set forth below. I have independently obtained history and examined the patient and my findings are summarized below: Patient's lung sounds are diminished with expiratory wheezes and crackles. We will continue IV antibiotics, inhaled dual nebs and IV steroids.
[2017-06-02] MEDS: Insulin DETEMIR 100 UNIT/ML X5UNITS SQ SCH ×2 (10:15→21:01)
--- NOTE | 2017-06-02 16:28 | Electrocardiograph Report ---
[place] [id number] Test Date: 2017-06-01 Pat Name: Rachel Guillen Department: 110 Room: 2N06 Gender: F Competency Evaluated Nurse Aide: MARIO : 1940 Requested By: Joseph Garner Order Number: [id number] Reading MD: Morales Milton MD Measurements Intervals [place] Rate: 99 P: 42 NE: 122 QRS: 19 QRSD: 78 T: 49 QT: 330 QTc: 386 Interpretive Statements SINUS RHYTHM WITH OCCASIONAL SUPRAVENTRICULAR PREMATURE COMPLEXES Electronically Signed On 06-02-2017 16:26:13 EST by Morales Milton MD
[2017-06-02] MEDS: FLUoxetine HCl 10 MG CAPSULE PO SCH (17:04)
[2017-06-02] MEDS: *HR* Morphine 2 MG/ML SYRINGE IVP PRN (19:26)
[2017-06-02] MEDS: Gabapentin 300 MG CAPSULE PO SCH (21:01)
[2017-06-03] MEDS: Levofloxacin 750 MG/150 ML 750 MG/150 ML BAG IVPB SCH (00:12)
[2017-06-03] MEDS: methylPREDNISolone 125 MG/2 ML VIAL IVP SCH ×4 (00:12→16:02)
[2017-06-03] MEDS: Ipratropium/Albuterol Neb 3 ML IH SCH ×6 (04:33→23:00)
[2017-06-03 04:42] LABS: Hematocrit 31.6 % (35.3-44.9); Hemoglobin 8.9 g/dL (11.5-15.4); Mean Corpuscular HGB Conc 28.2 g/dL (31.6-35.5); Mean Corpuscular Hemoglobin 23.1 pg (28.0-33.3); Mean Corpuscular Volume 81.9 fL (83.0-100.0); Red Blood Count 3.86 M/mcL (3.82-4.97)
[2017-06-03 04:44] LABS: Immature Granulocytes % 0.5 % (0-4); Lymphocytes # 0.2 K/mcL (0.6-4.6); Lymphocytes % 4.3 %; Mean Platelet Volume 9.5 fL (9.4-12.4); Monocytes # 0.2 K/mcL (0.0-1.3); Monocytes % 5.2 %; Nucleated Red Blood Cells 0.5 /100 WBC (0); Platelet Count 275 K/mcL (140-400); Red Cell Distribution Width 18.4 % (11.5-14.5)
[2017-06-03 05:02] LABS: BUN/Creatinine Ratio 29 (6-26); Blood Urea Nitrogen 23 mg/dL (7-20); Carbon Dioxide 37 mEq/L (19-29); Chloride 94 mEq/L (98-109); Glucose 219 mg/dL (70-99); Osmolality,Calculated 298 (280-300); Potassium 4.4 mEq/L (3.5-4.5); Sodium 139 mEq/L (136-145); eGFR For African Americans > 60 (> 60); eGFR For Non-African Americans > 60 (> 60)
[2017-06-03 05:29] LABS: Hypochromasia Present (Not Present); Microcytosis Present (Not Present); Platelet Estimate Normal (Normal)
[2017-06-03] MEDS: *HR* Heparin 5,000 UNIT/ML VIAL SQ SCH ×3 (06:05→21:13)
[2017-06-03] MEDS: Cefepime HCl 2,000 MG in Water for inj. (sterile) 20 ML IVP SCH (06:05)
[2017-06-03] MEDS: Furosemide 20 MG/2 ML VIAL IVP SCH (08:31)
[2017-06-03] MEDS: Insulin LISPRO 300 UNITS/3 ML VIAL SQ SCH ×4 (08:32→21:12)
[2017-06-03] MEDS: *HR* LORazepam 2 MG/ML VIAL IVP PRN (08:32)
[2017-06-03] MEDS: FLUoxetine HCl 10 MG CAPSULE PO SCH (08:32)
[2017-06-03] MEDS: Gabapentin 300 MG CAPSULE PO SCH ×3 (08:32→21:12)
[2017-06-03] MEDS: Aspirin Enteric Coated 81 MG Tablet PO SCH (08:32)
[2017-06-03] MEDS: Insulin DETEMIR 100 UNIT/ML X5UNITS SQ SCH ×2 (09:00→21:10)
[2017-06-03] MEDS ORDERED: Furosemide 40 MG/4 ML VIAL IVP ONE (14:45)
--- NOTE | 2017-06-03 15:27 | Internal Med Progress Note ---
<Joseph Garner - Last Filed: 06/03/17 15:20> Date of Encounter: 06/03/17 Time of Encounter: 09:00 - Assessment and plan (1) Healthcare-associated pneumonia Current Visit: Yes Status: Acute Assessment and plan: Negative BC at 48h cont levaquin continue to monitor patient is significantly improving Likely discharge within 1-2 days; SW is seeking SNF placement (2) Sepsis Current Visit: Yes Status: Acute Assessment and plan: Secondary to lobar pneumonia likely bacterial in etiology continue antibiotics Qualifiers: Sepsis type: sepsis due to unspecified organism Qualified Code(s): A41.9 - Sepsis, unspecified organism (3) Acute respiratory failure with hypoxia and hypercarbia Current Visit: Yes Status: Acute Assessment and plan: Currently on moderate flow rate via NC saturating in 90s maintain SpO2 between 88-92% ABG continues to show improvement; patient is no longer acidemic and PCO2 is within the 60s (4) COPD exacerbation Current Visit: No Status: Acute Assessment and plan: Cont high dose IV steroids consider transition to PO prednisone taper in the next day or 2 Duoneb and O2 supplementation (5) Diabetes Current Visit: No Status: Chronic Assessment and plan: Patient is able to tolerate short courses on nasal 02; start diabetic diet continue SSI; added Levemir 6 units BID FSBG aACHS Qualifiers: Diabetes mellitus type: type 2 Diabetes mellitus complication status: with unspecified complications Diabetes mellitus assisted insulin use: unspecified assisted insulin use status Qualified Code(s): E11.8 - Type 2 diabetes mellitus with unspecified complications (6) Diastolic CHF, chronic Current Visit: Yes Status: Acute Assessment and plan: Stable and chronic no signs of volume overload on exam this AM (7) HTN (hypertension) Current Visit: Yes Status: Acute Assessment and plan: stable with moderate elevation cont current Rx Qualifiers: Hypertension type: essential hypertension Qualified Code(s): I10 - Essential (primary) hypertension (8) Tobacco dependence Current Visit: Yes Status: Acute Assessment and plan: counseled smoking cessation cont nicotine patch (9) DVT prophylaxis Current Visit: No Status: Acute Assessment and plan: cont subQ heparin - Time Spent With Patient less than 15 minutes - Subjective Interval history: Appetite is improving. Shortness of air is improving and patient is presently not dependent on BiPAP. Continues to require lower flow rates on NC as well. No acute complaints. - Constitutional Vitals: Temp Pulse Resp BP Pulse Ox 98.2 F 92 16 139/78 95 06/03/17 11:15 06/03/17 11:15 06/03/17 11:26 06/03/17 11:15 06/03/17 11:26 General appearance: Present: A&O X 3, pleasant, no acute distress, answers questions appropriately - Head Head exam: Present: atraumatic, normocephalic - Eye Eye exam: Present: conjuntiva pink, sclera anicteric - Neck Neck exam general surgery: Present: supple, trachea midline - Respiratory Respiratory exam: Present: CTAB. Absent: accessory muscle use, rales, respiratory distress, rhonchi, wheezes, tachypnea - Cardiovascular Cardiovascular exam: Present: RRR, +S1, +S2. Absent: diastolic murmur, gallop, rubs, +S3, +S4, systolic murmur - GI/Abdominal GI/Abdominal exam: Present: soft, no peritoneal signs. Absent: distended, tenderness - Extremities Exam Extremities exam: Present: warm, radial pulses palpable and symmetrical. Absent : calf tenderness, cyanotic, mottling, pedal edema - Neurological Exam Neurological exam: Present: no focal deficits. Absent: facial droop, speech deficit - Skin Skin exam: Present: dry, intact, normal color. Absent: cyanosis, diaphoretic, mottled, pallor Internal Medicine: Result - Labs CBC & Chem 7: 06/03/17 04:37 06/03/17 04:37 Labs: Short CBC 06/03/17 Range/Units 04:37 WBC 4.4 (4.3-11.1) K/mcL Hgb 8.9 L (11.5-15.4) g/dL Hct 31.6 L (35.3-44.9) % Plt Count 275 (140-400) K/mcL Neutrophils # 4.0 (1.6-8.9) K/mcL BMP 06/03/17 04:37 Sodium 139 Potassium 4.4 Chloride 94 L Carbon Dioxide 37 H BUN 23 H Creatinine 0.80 Glucose 219 H Calcium 9.0 Laboratory Last Values WBC 4.4 K/mcL (4.3-11.1) 06/03/17 04:37 RBC 3.86 M/mcL (3.82-4.97) 06/03/17 04:37 Hgb 8.9 g/dL (11.5-15.4) L 06/03/17 04:37 Hct 31.6 % (35.3-44.9) L 06/03/17 04:37 MCV 81.9 fL (83.0-100.0) L 06/03/17 04:37 MCH 23.1 pg (28.0-33.3) L 06/03/17 04:37 MCHC 28.2 g/dL (31.6-35.5) L 06/03/17 04:37 RDW 18.4 % (11.5-14.5) H 06/03/17 04:37 Plt Count 275 K/mcL (140-400) 06/03/17 04:37 MPV 9.5 fL (9.4-12.4) 06/03/17 04:37 Immature Gran % 0.5 % (0-4) 06/03/17 04:37 Seg Neutrophils % 90.0 % 06/03/17 04:37 Lymphocytes % 4.3 % 06/03/17 04:37 Monocytes % 5.2 % 06/03/17 04:37 Eosinophils % 0.0 % 06/03/17 04:37 Basophils % 0.0 % 06/03/17 04:37 Neutrophils # 4.0 K/mcL (1.6-8.9) 06/03/17 04:37 Lymphocytes # 0.2 K/mcL (0.6-4.6) L 06/03/17 04:37 Monocytes # 0.2 K/mcL (0.0-1.3) 06/03/17 04:37 Eosinophils # 0.0 K/mcL (0.0-0.6) 06/03/17 04:37 Basophils # 0.0 K/mcL (0.0-0.2) 06/03/17 04:37 Nucleated RBCs/100 WBC 0.5 /100 WBC (0) H 06/03/17 04:37 Platelet Estimate Normal (Normal) 06/03/17 04:37 Polychromasia 1+ (Not Present) A 06/02/17 03:45 Hypochromasia Present (Not Present) A 06/03/17 04:37 Poikilocytosis 1+ (Not Present) A 06/01/17 03:50 Basophilic Stippling 1+ (Not Present) A 05/31/17 09:12 Anisocytosis 1+ (Not Present) A 06/01/17 03:50 Microcytosis Present (Not Present) A 06/03/17 04:37 Stomatocytes 1+ (Not Present) A 06/02/17 03:45 PT 11.3 Seconds (9.4-12.1) 05/29/17 23:02 INR 1.1 05/29/17 23:02 APTT 25.5 Seconds (26.0-36.0) L 05/29/17 23:02 Sample Site R Radial 06/01/17 04:23 ABG pH 7.35 pH Units (7.32-7.45) 06/02/17 03:39 ABG pCO2 66 mmHg (35-45) H 06/02/17 03:39 ABG pO2 97 mmHg (85-104) 06/02/17 03:39 ABG HCO3 37 mEq/L (21-27) H 06/02/17 03:39 ABG Total CO2 39 mEq/L (20-26) H 06/02/17 03:39 ABG O2 Saturation 97 % (95-98) 06/02/17 03:39 ABG Base Excess 9 mEq/L (-2 to 3) H 06/02/17 03:39 Awais Test Positive 06/01/17 04:23 O2 Delivery Device BiPAP 06/01/17 04:23 Blood Gas Modality PS 05/30/17 17:08 Inspired O2 35.0 (1-15=lpm [id number]=%) 06/01/17 04:23 PEEP 6 cm H2O 05/30/17 17:08 Pressure Support 18 cm H2O 05/30/17 17:08 Sodium 139 mEq/L (136-145) 06/03/17 04:37 Potassium 4.4 mEq/L (3.5-4.5) 06/03/17 04:37 Chloride 94 mEq/L (98-109) L 06/03/17 04:37 Carbon Dioxide 37 mEq/L (19-29) H 06/03/17 04:37 BUN 23 mg/dL (7-20) H 06/03/17 04:37 Creatinine 0.80 mg/dL (0.57-1.11) 06/03/17 04:37 Est GFR ( Amer) > 60 (> 60) 06/03/17 04:37 Est GFR (Non-Af Amer) > 60 (> 60) 06/03/17 04:37 BUN/Creatinine Ratio 29 (6-26) H 06/03/17 04:37 Glucose 219 mg/dL (70-99) H 06/03/17 04:37 POC Glucose 301 (58-89) H 06/03/17 10:39 Calculated Osmolality 298 (280-300) 06/03/17 04:37 Lactic Acid 0.9 mmol/L (0.5-2.2) 05/29/17 23:02 Calcium 9.0 mg/dL (8.6-10.8) 06/03/17 04:37 Magnesium 1.5 mg/dL (1.6-2.6) L 05/30/17 05:13 Total Bilirubin 0.4 mg/dL (0.2-1.2) 05/30/17 05:13 AST 11 Units/L (5-34) 05/30/17 05:13 ALT 11 Units/L (0-55) 05/30/17 05:13 Alkaline Phosphatase 74 Units/L (38-126) 05/30/17 05:13 Troponin I 0.03 ng/mL (0-0.03) 06/01/17 08:30 B-Natriuretic Peptide 387 pg/mL (0-100) H 05/29/17 23:02 Serum Total Protein 6.6 g/dL (6.0-8.3) 05/30/17 05:13 Albumin 2.9 g/dL (3.5-5.0) L 05/30/17 05:13 Globulin 3.7 g/dL (2.4-3.5) H 05/30/17 05:13 Albumin/Globulin Ratio 0.8 (1.1-2.2) L 05/30/17 05:13 Urine Color Yellow (Yellow) 05/30/17 00:19 Urine Clarity Clear (Clear) 05/30/17 00:19 Urine pH 5.5 pH Units (5.0-8.0) 05/30/17 00:19 Ur Specific [place] 1.024 (1.010-1.025) 05/30/17 00:19 Urine Protein 100 mg/dL (Neg-Trace) H 05/30/17 00:19 Urine Glucose (UA) Normal mg/dL (Normal) 05/30/17 00:19 Urine Clinitest (Negative) 05/30/17 00:19 Urine Ketones Negative mg/dL (Negative) 05/30/17 00:19 Urine Blood Negative (Negative) 05/30/17 00:19 Urine Nitrite Negative (Negative) 05/30/17 00:19 Urine Bilirubin Negative (Negative) 05/30/17 00:19 Urine Urobilinogen Normal mg/dL (Normal) 05/30/17 00:19 Ur Leukocyte Esterase Negative (Negative) 05/30/17 00:19 Urine Microscopic RBC 0-3 per hpf (0-3) 05/30/17 00:19 Urine Microscopic WBC 0-3 per hpf (0-3) 05/30/17 00:19 Urine Bacteria Few per hpf (None-Few) 05/30/17 00:19 Ur Culture Indicated? NO (NO) 05/30/17 00:19 Vancomycin Trough 19.5 mcg/mL (10-20) 05/31/17 14:02 Person Notif of Crit Resp/Jeb Kwong 05/31/17 00:03 - ABG Interpretation ABG results: ABG ABG pH 7.35 pH Units (7.32-7.45) 06/02/17 03:39 ABG pCO2 66 mmHg (35-45) H 06/02/17 03:39 ABG pO2 97 mmHg (85-104) 06/02/17 03:39 ABG O2 Saturation 97 % (95-98) 06/02/17 03:39 PT/INR, D-dimer PT 11.3 Seconds (9.4-12.1) 05/29/17 23:02 Consult Discharge Plan - Plan Referrals: Gustavo Stout DO [Resident] - (this patient is going to [facility]CF, no PCP appointment is needed) <Darek Teague - Last Filed: 06/03/17 17:25> Date of Encounter: 06/03/17 - Constitutional Vitals: Temp Pulse Resp BP Pulse Ox 97.2 F L 108 17 139/69 98 06/03/17 16:38 06/03/17 16:38 06/03/17 16:38 06/03/17 16:38 06/03/17 16:38 Internal Medicine: Result - Labs CBC & Chem 7: 06/03/17 04:37 06/03/17 04:37 Labs: Short CBC 06/03/17 Range/Units 04:37 WBC 4.4 (4.3-11.1) K/mcL Hgb 8.9 L (11.5-15.4) g/dL Hct 31.6 L (35.3-44.9) % Plt Count 275 (140-400) K/mcL Neutrophils # 4.0 (1.6-8.9) K/mcL BMP 06/03/17 04:37 Sodium 139 Potassium 4.4 Chloride 94 L Carbon Dioxide 37 H BUN 23 H Creatinine 0.80 Glucose 219 H Calcium 9.0 - ABG Interpretation ABG results: ABG ABG pH 7.35 pH Units (7.32-7.45) 06/02/17 03:39 ABG pCO2 66 mmHg (35-45) H 06/02/17 03:39 ABG pO2 97 mmHg (85-104) 06/02/17 03:39 ABG O2 Saturation 97 % (95-98) 06/02/17 03:39 PT/INR, D-dimer PT 11.3 Seconds (9.4-12.1) 05/29/17 23:02 - Attending Attestation I conducted a face to face diagnostic evaluation of this patient and my medical decision-making was reviewed with the Resident Physician, Dr. Pascual Ruiz. I agree with the documented findings, disposition and treatment plan as described except to the extent set forth below: Patient's lung exam reveals bilateral expiratory wheezes. She reports moderate shortness of breath at rest, worse from yesterday. We will continue with IV steroids, BiPAP as needed. High flow oxygen nasal cannula.
[2017-06-03] MEDS: Acetylcysteine 10% 2 ML INHSOL IH SCH ×2 (16:26→23:01)
[2017-06-03] MEDS ORDERED: levoFLOXacin 750 MG TABLET PO SCH (22:00)
[2017-06-04] MEDS: methylPREDNISolone 125 MG/2 ML VIAL IVP SCH ×4 (00:04→16:42)
[2017-06-04] MEDS: Ipratropium/Albuterol Neb 3 ML IH SCH ×4 (03:45→16:37)
[2017-06-04] MEDS: *HR* Heparin 5,000 UNIT/ML VIAL SQ SCH ×2 (05:03→13:58)
[2017-06-04 05:25] LABS: Immature Granulocytes % 0.3 % (0-4)
[2017-06-04 05:26] LABS: Hematocrit 31.9 % (35.3-44.9); Lymphocytes # 0.2 K/mcL (0.6-4.6); Lymphocytes % 3.4 %; Mean Corpuscular HGB Conc 28.2 g/dL (31.6-35.5); Mean Corpuscular Hemoglobin 23.1 pg (28.0-33.3); Mean Corpuscular Volume 81.8 fL (83.0-100.0); Monocytes # 0.2 K/mcL (0.0-1.3); Monocytes % 3.8 %; Platelet Count 291 K/mcL (140-400); Red Cell Distribution Width 17.9 % (11.5-14.5); Segmented Neutrophils % 92.5 %
[2017-06-04 05:35] LABS: Neutrophils # 5.6 K/mcL (1.6-8.9)
[2017-06-04 05:47] LABS: BUN/Creatinine Ratio 29 (6-26); Blood Urea Nitrogen 27 mg/dL (7-20); Calcium 8.9 mg/dL (8.6-10.8); Carbon Dioxide 36 mEq/L (19-29); Chloride 92 mEq/L (98-109); Glucose 300 mg/dL (70-99); Osmolality,Calculated 296 (280-300); Potassium 4.2 mEq/L (3.5-4.5); Sodium 135 mEq/L (136-145); eGFR For African Americans > 60 (> 60); eGFR For Non-African Americans 58 (> 60)
[2017-06-04 05:56] LABS: Anisocytosis 1+ (Not Present); Microcytosis Present (Not Present); Platelet Estimate Normal (Normal)
[2017-06-04] MEDS: Insulin LISPRO 300 UNITS/3 ML VIAL SQ SCH ×4 (08:10→16:38)
[2017-06-04] MEDS: FLUoxetine HCl 10 MG CAPSULE PO SCH (08:11)
[2017-06-04] MEDS: Aspirin Enteric Coated 81 MG Tablet PO SCH (08:11)
[2017-06-04] MEDS: Gabapentin 300 MG CAPSULE PO SCH ×2 (08:11→13:58)
[2017-06-04] MEDS: Acetylcysteine 10% 2 ML INHSOL IH SCH ×2 (08:12→16:38)
[2017-06-04] MEDS: Insulin DETEMIR 100 UNIT/ML X5UNITS SQ SCH (08:21)
[2017-06-04] MEDS ORDERED: Furosemide 40 MG/4 ML VIAL IVP SCH (09:00)
--- NOTE | 2017-06-04 09:38 | Discharge Summary ---
<Joseph Garner - Last Filed: 06/04/17 11:00> Date of Encounter: 06/04/17 Time of Encounter: 09:00 - Discharge Diagnosis (1) Healthcare-associated pneumonia Priority: Primary Status: Acute Comments: From medical standpoint, patient no longer requires inpatient care. During the course, patient unlikely safe for home discharge; SW is attempting to secure SNF placement for patient per PT/OT recommendation. Stable. Completing course of Levaquin; will transition to PO. (2) Acute respiratory failure with hypoxia and hypercarbia Priority: Secondary Status: Acute Comments: Continued nasal O2 & BiPAP as needed; continue PT/OT at SNF upon discharge. (3) Sepsis Priority: Secondary Status: Acute Qualifiers: Sepsis type: sepsis due to unspecified organism Qualified Code(s): A41.9 - Sepsis, unspecified organism (4) COPD exacerbation Priority: Secondary Status: Acute Comments: As above (5) Diabetes Priority: Secondary Status: Chronic Comments: Continue home meds Qualifiers: Diabetes mellitus type: type 2 Diabetes mellitus complication status: with unspecified complications Diabetes mellitus sustainment logistics analyst insulin use: unspecified sustainment logistics analyst insulin use status Qualified Code(s): E11.8 - Type 2 diabetes mellitus with unspecified complications (6) Diastolic CHF, chronic Priority: Secondary Status: Acute Comments: Stable; not acutely decompensated. (7) HTN (hypertension) Priority: Secondary Status: Acute Comments: Continue home meds Qualifiers: Hypertension type: essential hypertension Qualified Code(s): I10 - Essential (primary) hypertension (8) Tobacco dependence Priority: Secondary Status: Acute Comments: Have counseled smoking cessation with patient (9) DVT prophylaxis Priority: Secondary Status: Acute - Discharge Medications Prescriptions: GuaiFENesin ER [Mucinex] 600 mg PO BID 10 Days #20 tbbp.12hr Insulin DETEMIR [Levemir] 10 unit SQ BID #20 mls Insulin LISPRO [Humalog Kwikpen U-100] 4 unit SQ TIDWM #20 mls levoFLOXacin [Levaquin] 750 mg PO DAILY 4 Days #4 tablet predniSONE [PredniSONE] See Taper PO DAILY 8 Days #30 tablet Home Medications: Albuterol Sulfate [Albuterol Inhaler] 2 puff IH Q6H PRN 03/11/17 [History] Aspirin [Lo-Dose Aspirin EC] 81 mg PO DAILY 03/11/17 [History] Atorvastatin [Lipitor] 10 mg PO HS 03/11/17 [History] Esomeprazole Magnesium [Nexium] 40 mg PO DAILY 03/11/17 [History] FLUoxetine HCl [Fluoxetine HCl] 10 mg PO DAILY 03/11/17 [History] Furosemide [Lasix] 20 mg PO BID 03/11/17 [History] Magnesium Oxide [Magnesium] 400 mg PO DAILY 03/11/17 [History] Oxybutynin [Ditropan] 5 mg PO DAILY 03/11/17 [History] Potassium Chloride [K-Tab ER] 10 meq PO DAILY 03/11/17 [History] metFORMIN [Glucophage] 850 mg PO BIDWM 03/11/17 [History] Acetylcysteine [V-Qpbmcv-u-Cysteine] 600 mg PO BID 05/11/17 [History] Fluticasone/Salmeterol [Advair 250-50 Diskus] 1 puff IH BID 05/11/17 [History] Gabapentin [Neurontin] 300 mg PO TID 05/11/17 [History] Ferrous Sulfate 325 mg PO DAILY@0800 #30 tablet 05/14/17 [Rx] GlipiZIDE [Glipizide Xl] 5 mg PO DAILY #30 tab.er.24 05/14/17 [Rx] Lisinopril [Zestril] 5 mg PO DAILY #30 tablet 05/14/17 [Rx] GuaiFENesin ER [Mucinex] 600 mg PO BID 10 Days #20 tbbp.12hr 06/04/17 [Rx] Insulin DETEMIR [Levemir] 10 unit SQ BID #20 mls 06/04/17 [Rx] Insulin LISPRO [Humalog Kwikpen U-100] 4 unit SQ TIDWM #20 mls 06/04/17 [Rx] levoFLOXacin [Levaquin] 750 mg PO DAILY 4 Days #4 tablet 06/04/17 [Rx] predniSONE [PredniSONE] See Taper PO DAILY 8 Days #30 tablet 06/04/17 [Rx] Allergies/Adverse Reactions: 3 Allergy/AdvReac Type Severity Reaction Status Date / Time Penicillins Allergy Anaphylaxis Verified 03/10/17 15:33 Procedures/tests Complete & Pending: Procedures Performed prior 72 hours Category Date Time Status CT angio chest [CT] Routine Cat Scan 06/01/17 15:35 Completed Date of admission: 05/30/17 03:48 Primary care physician: Steve Galarza MD Consults: 05/31/17 14:06 Consult to Occupational Therapy [CONS] Routine Comment: Evaluate, develop and implement POC Reason for Consult: Evaluation for placement, weakness Consult to Physical Therapy [CONS] Routine Comment: Evaluate, develop and implement POC Reason for Consult: Evaluation for placement, desaturation and weakness 06/01/17 11:34 Consult to Invasive Line Access Team [CONS] Routine Reason for Consult: limited vascular access Line Type: EPIV 06/02/17 15:49 Consult to Scientific Helper [CONS] Routine Reason for SW Consult: PT/OT recommends SNF Discharging clinician: Joseph Garner Anticipated date of discharge: 06/04/17 - Patient Status Disposition: Transfer SNF Condition: Fair Functional capacity at discharge: uses cane/walker Overall status at discharge: patient is progressing back to baseline - Discharge Instructions Instructions: Prednisone (By mouth), Guaifenesin (By mouth), Levofloxacin (By mouth), Acute Respiratory Distress Syndrome (DC), Meal Planning with Diabetes Exchanges (DC) Follow Up With: Gustavo Stout, [Resident] - (this patient is going to [facility], no PCP appointment is needed) Additional Instructions: Only PCP follow-up within the next week or 2 please work with PT/OT and it adhere to any instructions and provide for the time being, please do not walk on your own without assistance except as otherwise instructed by PT/OT Please continue to take your usual medications continue your antibiotic, Levaquin, an additional 4 days by mouth take prednisone as prescribed over the next 8 days please call your PCP for any new or worsening symptoms; report to the ED for further evaluation as needed as discussed. - Diet and Activity Activity: as per physical therapy, wear oxygen at all times, other (Fall risk and should only ambulate with assistance as tolerated) Diet: diabetic diet Interval History: Bill significantly better even as compared yesterday. Seated at bedside on 5 L via nasal 02 eating breakfast. Is able to calm verse in full sentences without any interruptions. Patient did express some concern over disposition citing that she heard she might be going to [facility], a place which she is refusing to transfer to. Discussed safety concerns on home discharge, and patient was agreeable to discussing with social work alternative SNF placement. Overall, improving and denies any acute complaints; feel the patient is medically clear for discharge at this time. Hospital course: Ms. Guillen is a 76 year old female with history of O2 dependent COPD who was admitted for acute right middle lobe pneumonia. Initially, patient was in respiratory failure in the ED prompting initial decision to intubate; this did not take place as patient regained some mentation and at that time BiPAP was successfully initiated. Patient transfered to step down unit and continued on BiPAP therapy. Patient started on broad-spectrum antibiotics, however with reporting of blood cultures being negative, vancomycin was stopped. Patient has thus far completed 5 days of IV Levaquin. She was initially acidemic/ hypercapneic; but ABGs trended to baseline over initial 3 days. Patient was weaned from BiPAP-dependence within 2-3 days and ultimately has been saturating low to mid 90s on low-mid rate oxygen by a nasal cannula. Patient is not having any other symptoms throughout course and continues to improve in terms of oxygenation. SNF placement has been of some concern; patient has previously been to [facility], the facility which was attempting to place Pt. Per PT/OT , patient is unlikely to be safe for home dispo; actively seeking alternate SNF placement for discharge. Patient will be discharged on continuation of PO Levaquin to complete a ten day course as well as a prednisone taper over the next 8 days. Time spent discussing smoking cessation with patient: 3 to 10 minutes - Time Spent with Patient Total time spent providing and/or coordinating discharge services: Less than 30 minutes - Constitutional Vitals: Temp Pulse Resp BP Pulse Ox 97.4 F L 102 16 125/59 87 06/04/17 07:27 06/04/17 08:15 06/04/17 08:15 06/04/17 07:27 06/04/17 08:15 General appearance: Present: A&O X 3, pleasant, no acute distress, answers questions appropriately - Head Head exam: Present: atraumatic, normocephalic - Eye Eye exam: Present: PERRL, conjuntiva pink, sclera anicteric - Neck Neck exam general surgery: Present: supple, trachea midline - Respiratory Respiratory exam: Present: CTAB, wheezes. Absent: accessory muscle use, decreased breath sounds, prolonged expiratory phase, rales, respiratory distress , rhonchi, stridor - Cardiovascular Cardiovascular exam: Present: RRR, +S1, +S2. Absent: diastolic murmur, gallop, rubs, +S3, +S4, systolic murmur, tachycardia - GI/Abdominal GI/Abdominal exam: Present: soft. Absent: distended, tenderness - Extremities Exam Extremities exam: Present: warm, radial pulses palpable and symmetrical. Absent : calf tenderness, cyanotic, pedal edema - Neurological Exam Neurological exam: Present: oriented X3, no focal deficits. Absent: facial droop, speech deficit - Skin Skin exam: Present: dry, intact, normal color. Absent: cyanosis, diaphoretic, mottled, pallor <Darek Teague - Last Filed: 06/04/17 18:55> Date of Encounter: 06/04/17 Date of admission: 05/30/17 03:48 Primary care physician: Steve Galarza MD Consults: 05/31/17 14:06 Consult to Occupational Therapy [CONS] Routine Comment: Evaluate, develop and implement POC Reason for Consult: Evaluation for placement, weakness Consult to Physical Therapy [CONS] Routine Comment: Evaluate, develop and implement POC Reason for Consult: Evaluation for placement, desaturation and weakness 06/01/17 11:34 Consult to Invasive Line Access Team [CONS] Routine Reason for Consult: limited vascular access Line Type: EPIV 06/02/17 15:49 Consult to Scientific Helper [CONS] Routine Reason for SW Consult: PT/OT recommends SNF - Patient Status Functional capacity at discharge: uses cane/walker Overall status at discharge: patient is progressing back to baseline Hospital course: Ms. Guillen is a 76 year old female - Time Spent with Patient Total time spent providing and/or coordinating discharge services: - Constitutional Vitals: Temp Pulse Resp BP Pulse Ox 97.3 F L 96 18 153/66 96 06/04/17 15:48 06/04/17 15:48 06/04/17 16:40 06/04/17 15:48 06/04/17 16:40 - Attending Attestation I conducted a face to face diagnostic evaluation of this patient and my medical decision-making was reviewed with the Resident Physician, Dr. Pascual Ruiz. I agree with the documented findings, disposition and treatment plan as described except to the extent set forth below: Transition to oral steroids. Continue inhaled albuterol and Atrovent. Patient will be discharged to rehabilitation.
[2017-06-04] MEDS: Acetaminophen 325 MG TABLET PO PRN (10:23)
--- NOTE | 2017-06-04 11:05 | Physician Discharge Referral ---
ExtendedCare Referral Info Transfer To: SNF Provider in Charge: Joseph Garner Institutional Level of Care: Skilled - Diagnosis (1) Healthcare-associated pneumonia Priority: Primary Status: Acute (2) Acute respiratory failure with hypoxia and hypercarbia Priority: Primary Status: Acute (3) Sepsis Priority: Secondary Status: Acute (4) COPD exacerbation Priority: Secondary Status: Acute (5) Diabetes Priority: Secondary Status: Chronic (6) Diastolic CHF, chronic Priority: Secondary Status: Acute (7) HTN (hypertension) Priority: Secondary Status: Chronic (8) Tobacco dependence Priority: Secondary Status: Chronic Expected Duration of Placement: 2 weeks Prognosis: Fair Aware of Diagnosis: Patient Aware of Prognosis: Patient - Transfer Medications Prescriptions: GuaiFENesin ER [Mucinex] 600 mg PO BID 10 Days #20 tbbp.12hr levoFLOXacin [Levaquin] 750 mg PO DAILY 4 Days #4 tablet predniSONE [PredniSONE] See Taper PO DAILY 8 Days #30 tablet Home Medications: Albuterol Sulfate [Albuterol Inhaler] 2 puff IH Q6H PRN 03/11/17 [History] Aspirin [Lo-Dose Aspirin EC] 81 mg PO DAILY 03/11/17 [History] Atorvastatin [Lipitor] 10 mg PO HS 03/11/17 [History] Esomeprazole Magnesium [Nexium] 40 mg PO DAILY 03/11/17 [History] FLUoxetine HCl [Fluoxetine HCl] 10 mg PO DAILY 03/11/17 [History] Furosemide [Lasix] 20 mg PO BID 03/11/17 [History] Magnesium Oxide [Magnesium] 400 mg PO DAILY 03/11/17 [History] Oxybutynin [Ditropan] 5 mg PO DAILY 03/11/17 [History] Potassium Chloride [K-Tab ER] 10 meq PO DAILY 03/11/17 [History] metFORMIN [Glucophage] 850 mg PO BIDWM 03/11/17 [History] Acetylcysteine [B-Aarkkp-a-Cysteine] 600 mg PO BID 05/11/17 [History] Fluticasone/Salmeterol [Advair 250-50 Diskus] 1 puff IH BID 05/11/17 [History] Gabapentin [Neurontin] 300 mg PO TID 05/11/17 [History] Ferrous Sulfate 325 mg PO DAILY@0800 #30 tablet 05/14/17 [Rx] GlipiZIDE [Glipizide Xl] 5 mg PO DAILY #30 tab.er.24 05/14/17 [Rx] Lisinopril [Zestril] 5 mg PO DAILY #30 tablet 05/14/17 [Rx] GuaiFENesin ER [Mucinex] 600 mg PO BID 10 Days #20 tbbp.12hr 06/04/17 [Rx] levoFLOXacin [Levaquin] 750 mg PO DAILY 4 Days #4 tablet 06/04/17 [Rx] predniSONE [PredniSONE] See Taper PO DAILY 8 Days #30 tablet 06/04/17 [Rx] Allergies/Adverse Reactions: 3 Allergy/AdvReac Type Severity Reaction Status Date / Time Penicillins Allergy Anaphylaxis Verified 03/10/17 15:33 - Respiratory Orders Oxygen / L per min (titrate to 92%), Other (continue to use IS BiPAP settings PRN per Rx) Smoking Cessation: Smoking cessation has been advised. For more information, call the [place] [employer] Quit Line at [phone]-NOW. - Ancillary Orders May use pressure relief devices daily prn, May go on ADELIA w/family/respon libertarian w /meds at nurse discretion PRN, May consult with Dentist, Independent Trader, Junior Copywriter PRN - Advance Directives Code Status: Full Code - Mobility Orders Ambulate - Rehabiliation Orders Rehab Potential: Fair Rehab Orders: Sternal Precautions, ROM Exercises, Evaluation for Physical Therapy, Evaluation for Occupational Therapy, Evaluation for Speech Therapy - Treatments Skin tear care topically daily PRN per policy, May check for fecal impaction rectally daily PRN, Fleet enema rectally every other day PRN cleansing purposes - Diet Orders No Added Salt (ALLISON), Cardiac CERTIFICATION: I certify that the transfer of the above named patient to an Extended Care Facility is necessary for the continuing treatment of the diagnosis listed. The above information is true and accurate reflection of patient's current condition. Confidential - Redisclosure prohibited without a patient's written consent.
[2017-06-04] MEDS ORDERED: Insulin DETEMIR 100 UNIT/ML X5UNITS SQ ONE (13:54)
[2017-06-04 15:53] VITALS: BP 153/66
== END 2017-06-04 18:04 | DRG 871 ==
LOC: EMEROO 22:36 → 2NNU 22:36 → ICNU 05-30 01:42 → 2NNU 05-30 01:51 → SUATTDRO 05-30 03:48
PROVIDERS: ADMIT Internal Medicine; ATTEND Internal Medicine